=== PATIENT | male | born 1930 | race Caucasian/White ===

== ENCOUNTER 2017-01-23 01:13 | Inpatient (IN) | payer MEDICARE, BC ==
--- NOTE | 2017-01-23 01:50 | EDM.PDOC ---
ED HPI GENERAL MEDICAL PROBLEM - General Chief Complaint: Fever Stated Complaint: MEDICAL VIA [facility] Time Seen by Provider: 01/23/17 01:27 Source of Information: Reports: Patient, Family (), Old Records, RN Notes Reviewed History Limitations: Reports: Other (Limited comprehension and communication due to Parkinson's) - History of Present Illness INITIAL COMMENTS - FREE TEXT/NARRATIVE: EMS arrival from home Chief complaint Chills, fever, cough and weakness History of present illness 86-year-old male with Parkinson's disease, cared for by his at home, generally weak, late had fairly sudden onset of chills about 10 PM followed by fever and cough productive of phlegm but rapidly became greenish and thick. Some choking spells. Usually quite weak and slow movement because of the Parkinson's disease, tonight he was much slower. He almost stumbled and fell but his moved a chair quickly enough to catch him as he slumped down; otherwise he would have fallen to the floor. Couldn't get him out of the chair after that so called EMS. History of previous admission for bronchitis last year with fever and cough. 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 - Related Data Allergies Allergy/AdvReac Type Severity Reaction Status Date / Time ephedrine Allergy Other Verified 01/23/17 01:17 lisinopril Allergy Other Verified 01/23/17 01:17 tramadol Allergy Other Verified 01/23/17 01:17 hydrocodone AdvReac Confusion Verified 01/23/17 01:17 oxycodone AdvReac Confusion Verified 01/23/17 01:17 Penicillins AdvReac Rash Verified 01/23/17 01:17 Home Meds: Home Meds Meloxicam [Mobic] 7.5 mg PO BID PRN 08/25/14 [History] Carbidopa/Levodopa [Carbidopa-Levo ER 50-200] 1 tab PO ONETIME 12/30/15 [History ] Carbidopa/Levodopa [Carbidopa-Levodopa 25-100 Tab] 1 tab PO TID 12/30/15 [ History] Hydrochlorothiazide 25 mg PO DAILY 12/30/15 [History] Thyroid,Pork [Nature-Throid] 65 mg PO DAILY 12/30/15 [History] Finasteride [Proscar] 5 mg PO DAILY 02/26/16 [History] Naltrexone 4.5 mg PO BEDTIME 02/26/16 [History] Tamsulosin [Flomax] 0.4 mg PO PCBREAKFAST #30 cap.er 02/29/16 [Rx] Vit B12/Lmefolate Ca/Vit B6/B2 [l-Methyl-Mc Tablet] 1 each PO DAILY 04/25/16 [ History] Vitamin D3/Vitamin K2 [D3 + K2 Dots 1,000 Unit] 1 tab PO DAILY 01/23/17 [History ] Past Medical History HEENT History: Reports: Cataract, Impaired Vision Cardiovascular History: Reports: Hypertension, Other (See Below) Other Cardiovascular History: PVC's Gastrointestinal History: Reports: Chronic Constipation Genitourinary History: Reports: Renal Calculus, Urinary Incontinence, Other ( See Below) Other Genitourinary History: Urinary frequency Musculoskeletal History: Reports: Fracture Neurological History: Reports: Parkinson's Endocrine/Metabolic History: Reports: Hypothyroidism - Infectious Disease History Infectious Disease History: Reports: Measles - Past Surgical History HEENT Surgical History: Reports: Cataract Surgery Musculoskeletal Surgical History: Reports: Knee Replacement Social & Family History - Family History Family Medical History: Noncontributory - Tobacco Use Smoking Status *Q: Never Smoker Month Tobacco Last Used: 50 years Second Hand Smoke Exposure: No - Caffeine Use Caffeine Use: Reports: Coffee - Recreational Drug Use Recreational Drug Use: No - Living Situation & Occupation Living situation: Reports: Occupation: Retired ED ROS GENERAL - Review of Systems Review Of Systems: Unable To Obtain (From patient due to age and Parkinson's) ED EXAM, GENERAL - Physical Exam Exam: See Below Exam Limited By: Physical Impairment General Appearance: Alert, Mild Distress, Other (Febrile, slow movement, lethargicNormal pulse saturation 94% on room air, mild elevation systolic blood pressure) Eye Exam: Bilateral Eye: Normal Inspection Ears: Normal External Exam, Normal Canal, Normal TMs Ear Exam: Bilateral Ear: Auricle Normal Nose: Normal Inspection, Normal Mucosa Throat/Mouth: Normal Inspection, Normal Gums, Normal Oropharynx Head: Atraumatic, Normocephalic Neck: Supple. No: Carotid Bruit, Lymphadenopathy (R), Lymphadenopathy (L) Respiratory/Chest: No Accessory Muscle Use, Chest Non-Tender, Decreased Breath Sounds, Rales. No: Wheezing Cardiovascular: Normal Peripheral Pulses, Regular Rate, Rhythm, Systolic Murmur (Loudest at the apex) GI/Abdominal: Normal Bowel Sounds, Soft, No Mass Back Exam: Normal Inspection Neurological: Alert, Slow to Respond, Memory Loss Recent Events, Other (Stiff and having a hard time moving due to his weakness and fever) Psychiatric: Flat Affect Skin Exam: Warm, Dry, Intact, Normal Color, No Rash Course - Vital Signs Last Recorded V/S: Last Vital Signs Temp 38.4 C H 01/23/17 01:14 Pulse 81 01/23/17 01:14 Resp 22 H 01/23/17 01:14 BP 154/82 H 01/23/17 01:14 Pulse Ox 94 L 01/23/17 01:14 - Orders/Labs/Meds Orders: Active Orders 24 hr Category Date Time Status Patient Status Manage Transfer [TRANSFER] Routine ADT 01/23/17 03:18 Active EKG Documentation Completion [RC] ASDIRECTED Care 01/23/17 01:37 Active Peripheral IV Care [RC] . DIRECTED Care 01/23/17 01:37 Active Chest 1V Frontal [CR] Stat Exams 01/23/17 01:37 Taken CULTURE BLOOD [BC] Urgent Lab 01/23/17 01:53 Received CULTURE BLOOD [BC] Urgent Lab 01/23/17 02:25 Received CULTURE RESPIRATORY + SMEAR [RM] Stat Lab 01/23/17 01:54 Results MAGNESIUM [CHEM] Urgent Lab 01/23/17 04:01 Ordered UA W/MICROSCOPIC [URIN] Stat Lab 01/23/17 01:36 Uncollected Potassium Chloride [KCL 20 MEQ in Water 100 ML] 20 meq Med 01/23/17 04:00 Ordered Premix Bag 1 bag IV ONETIME Sodium Chloride 0.9% [Normal Saline] 1,000 ml Med 01/23/17 01:45 Active IV ASDIRECTED Sodium Chloride 0.9% [Saline Flush] Med 01/23/17 01:36 Active 10 ml FLUSH ASDIRECTED PRN Blood Culture x2 Reflex Set [OM.PC] Urgent Oth 01/23/17 01:37 Ordered Peripheral IV Insertion Adult [OM.PC] Routine Oth 01/23/17 01:36 Ordered Resuscitation Status Routine Resus Stat 01/23/17 03:20 Ordered EKG 12 Lead [EK] Routine Ther 01/23/17 01:36 Ordered Medication Orders Sodium Chloride (Normal Saline) 1,000 mls @ 125 mls/hr IV ASDIRECTED ANN Last Admin: 01/23/17 02:03 Dose: 125 mls/hr Potassium Chloride 20 meq/ (Premix) 100 mls @ 50 mls/hr IV ONETIME ONE Stop: 01/23/17 05:59 Sodium Chloride (Saline Flush) 10 ml FLUSH ASDIRECTED PRN PRN Reason: Keep Vein Open Last Admin: 01/23/17 02:59 Dose: 10 ml Labs: Laboratory Tests 01/23/17 01/23/17 01/23/17 Range/Units 01:53 01:53 01:53 WBC 15.5 H (4.5-11.0) K/uL RBC 4.45 (4.30-5.90) M/uL Hgb 13.7 (12.0-15.0) g/dL Hct 40.6 (40.0-54.0) % MCV 91 (80-98) fL MCH 31 (27-31) pg MCHC 34 (32-36) % Plt Count 178 (150-400) K/uL Sodium 140 (140-148) mmol/L Potassium 3.1 L (3.6-5.2) mmol/L Chloride 105 (100-108) mmol/L Carbon Dioxide 28 (21-32) mmol/L Anion Gap 10.1 (5.0-14.0) mmol/L BUN 34 H (7-18) mg/dL Creatinine 1.4 H (0.8-1.3) mg/dL Est Cr Clr Drug Dosing 34.18 mL/min Estimated GFR (MDRD) 48 L (>60) Glucose 122 H (74-106) mg/dL Lactic Acid 1.2 (0.4-2.0) mmol/L Calcium 8.5 (8.5-10.1) mg/dL Total Bilirubin 0.8 (0.2-1.0) mg/dL AST 20 (15-37) U/L ALT 6 L (12-78) U/L Alkaline Phosphatase 86 (46-116) U/L Total Protein 6.5 (6.4-8.2) g/dL Albumin 3.1 L (3.4-5.0) g/dL Globulin 3.4 (2.3-3.5) g/dL Albumin/Globulin Ratio 0.9 L (1.2-2.2) Amylase (25-115) U/L Lipase (73-393) U/L 01/23/17 Range/Units 02:44 WBC (4.5-11.0) K/uL RBC (4.30-5.90) M/uL Hgb (12.0-15.0) g/dL Hct (40.0-54.0) % MCV (80-98) fL MCH (27-31) pg MCHC (32-36) % Plt Count (150-400) K/uL Sodium (140-148) mmol/L Potassium (3.6-5.2) mmol/L Chloride (100-108) mmol/L Carbon Dioxide (21-32) mmol/L Anion Gap (5.0-14.0) mmol/L BUN (7-18) mg/dL Creatinine (0.8-1.3) mg/dL Est Cr Clr Drug Dosing mL/min Estimated GFR (MDRD) (>60) Glucose (74-106) mg/dL Lactic Acid (0.4-2.0) mmol/L Calcium (8.5-10.1) mg/dL Total Bilirubin (0.2-1.0) mg/dL AST (15-37) U/L ALT (12-78) U/L Alkaline Phosphatase (46-116) U/L Total Protein (6.4-8.2) g/dL Albumin (3.4-5.0) g/dL Globulin (2.3-3.5) g/dL Albumin/Globulin Ratio (1.2-2.2) Amylase 51 (25-115) U/L Lipase 154 (73-393) U/L Meds: Medications Generic Name Dose Route Start Last Admin Trade Name Freq PRN Reason Stop Dose Admin Sodium Chloride 1,000 mls @ 125 mls/hr 01/23/17 01:45 01/23/17 02:03 Normal Saline IV 125 mls/hr ASDIRECTED ANN Administration Potassium Chloride 20 meq/ 100 mls @ 50 mls/hr 01/23/17 04:00 Premix IV 01/23/17 05:59 ONETIME ONE Sodium Chloride 10 ml 01/23/17 01:36 01/23/17 02:59 Saline Flush FLUSH 10 ml ASDIRECTED PRN Administration Keep Vein Open Discontinued Medications Generic Name Dose Route Start Last Admin Trade Name Lenny PRN Reason Stop Dose Admin Azithromycin 500 mg/ Sodium 250 mls @ 250 mls/hr 01/23/17 02:23 01/23/17 02: 57 Chloride IV 01/23/17 03:22 250 mls/hr ONETIME ONE Administration Ceftriaxone Sodium 1 gm/ 50 mls @ 100 mls/hr 01/23/17 02:23 01/23/17 02:52 Sodium Chloride IV 01/23/17 02:52 100 mls/hr ONETIME ONE Administration - Re-Assessments/Exams Free Text/Narrative Re-Assessment/Exam: 01/23/17 02:06 86-year-old male with Parkinson's disease, lives at home with his , sudden onset of chills fever cough tonight. Saline IV, chest x-ray, labs as ordered including blood culture 01/23/17 02:22 WBC 15.5 Chest x-ray by my interpretation shows new left lower lobe infiltrate EKG shows sinus rhythm with some nonspecific T-wave changes Impression Pneumonia LLL Generalized weakness Admit IV ceftriaxone 1 g and azithromycin 500 mg 01/23/17 02:27 01/23/17 04:10 Departure - Departure Time of Disposition: 02:24 Disposition: Admitted As Inpatient 66 Condition: fair Clinical Impression: Generalized weakness, Parkinsons disease Pneumonia Qualifiers: Pneumonia type: due to unspecified organism Laterality: left Lung location: lower lobe of lung Qualified Code(s): J18.1 - Lobar pneumonia, unspecified organism - Discharge Information Referrals: PCP,None [Primary Care Provider] - Forms: ED Department Discharge - My Orders Last 24 Hours: My Active Orders 01/23/17 01:36 UA W/MICROSCOPIC [URIN] Stat Sodium Chloride 0.9% [Saline Flush] 10 ml FLUSH ASDIRECTED PRN Peripheral IV Insertion Adult [OM.PC] Routine EKG 12 Lead [EK] Routine 01/23/17 01:37 EKG Documentation Completion [RC] ASDIRECTED Peripheral IV Care [RC] . DIRECTED Chest 1V Frontal [CR] Stat Blood Culture x2 Reflex Set [OM.PC] Urgent 01/23/17 01:45 Sodium Chloride 0.9% [Normal Saline] 1,000 ml IV ASDIRECTED 01/23/17 01:53 CULTURE BLOOD [BC] Urgent 01/23/17 01:54 CULTURE RESPIRATORY + SMEAR [RM] Stat 01/23/17 02:25 CULTURE BLOOD [BC] Urgent - Assessment/Plan Last 24 Hours: My Active Orders 01/23/17 01:36 UA W/MICROSCOPIC [URIN] Stat Sodium Chloride 0.9% [Saline Flush] 10 ml FLUSH ASDIRECTED PRN Peripheral IV Insertion Adult [OM.PC] Routine EKG 12 Lead [EK] Routine 01/23/17 01:37 EKG Documentation Completion [RC] ASDIRECTED Peripheral IV Care [RC] . DIRECTED Chest 1V Frontal [CR] Stat Blood Culture x2 Reflex Set [OM.PC] Urgent 01/23/17 01:45 Sodium Chloride 0.9% [Normal Saline] 1,000 ml IV ASDIRECTED 01/23/17 01:53 CULTURE BLOOD [BC] Urgent 01/23/17 01:54 CULTURE RESPIRATORY + SMEAR [RM] Stat 01/23/17 02:25 CULTURE BLOOD [BC] Urgent
[2017-01-23] MEDS: Sodium Chloride 0.9% 1,000 ML IV SCH ×2 (02:03→19:53)
[2017-01-23] MEDS ORDERED: cefTRIAXone 1 GM in Sodium Chloride 0.9% 50 ML IV ONE (02:23)
[2017-01-23] MEDS ORDERED: Azithromycin 500 MG in Sodium Chloride 0.9% 250 ML IV ONE (02:23)
--- NOTE | 2017-01-23 02:48 | PCM.HP ---
H&P History of Present Illness - General Date of Service: 01/23/17 Source of Information: Patient, Family () - History of Present Illness Initial Comments - Free Text/Narative: EMS arrival from home Chief complaint Chills, fever, cough and weakness History of present illness History 86-year-old male with Parkinson's disease, cared for by his at home , generally weak, late had fairly sudden onset of chills about 10 PM followed by fever and cough productive of phlegm but rapidly became greenish and thick. Some choking spells. He became weak that he had troubles walking and moving compared to usual fourchette and the moved a chair and times that he sat down. In the chair. Couldn't get mother the chair after that so called EMS. History of previous admission for bronchitis last year with fever and cough. 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 Saline IV, chest x-ray, labs as ordered including blood culture 01/23/17 02:22 WBC 15.5 Chest x-ray by my interpretation shows new left lower lobe infiltrate EKG shows sinus rhythm with some nonspecific T-wave changes Impression Pneumonia Generalized weakness Admit IV ceftriaxone 1 g and azithromycin 500 mg 01/23/17 02:27 Onset of Symptoms: Reports: Sudden (of shortness of breath,fever and chills), Gradual Duration of Symptoms: Reports: Day(s): Location: Reports: Generalized Quality: Reports: Same as Previous Episode Severity: Moderate Improves with: Reports: None Worsens with: Reports: Movement Associated Symptoms: Reports: Cough, Fever/Chills, Loss of Appetite, Nausea/ Vomiting, Shortness of Breath, Weakness - Related Data Allergies/Adverse Reactions: Allergies Allergy/AdvReac Type Severity Reaction Status Date / Time ephedrine Allergy Other Verified 01/23/17 01:17 lisinopril Allergy Other Verified 01/23/17 01:17 tramadol Allergy Other Verified 01/23/17 01:17 hydrocodone AdvReac Confusion Verified 01/23/17 01:17 oxycodone AdvReac Confusion Verified 01/23/17 01:17 Penicillins AdvReac Rash Verified 01/23/17 01:17 Home Medications: Home Meds Meloxicam [Mobic] 7.5 mg PO BID PRN 08/25/14 [History] Carbidopa/Levodopa [Carbidopa-Levo ER 50-200] 1 tab PO ONETIME 12/30/15 [History ] Carbidopa/Levodopa [Carbidopa-Levodopa 25-100 Tab] 1 tab PO TID 12/30/15 [ History] Hydrochlorothiazide 25 mg PO DAILY 12/30/15 [History] Thyroid,Pork [Nature-Throid] 65 mg PO DAILY 12/30/15 [History] Finasteride [Proscar] 5 mg PO DAILY 02/26/16 [History] Naltrexone 4.5 mg PO BEDTIME 02/26/16 [History] Tamsulosin [Flomax] 0.4 mg PO PCBREAKFAST #30 cap.er 02/29/16 [Rx] Vit B12/Lmefolate Ca/Vit B6/B2 [l-Methyl-Mc Tablet] 1 each PO DAILY 04/25/16 [ History] Vitamin D3/Vitamin K2 [D3 + K2 Dots 1,000 Unit] 1 tab PO DAILY 01/23/17 [History ] Past Medical History HEENT History: Reports: Cataract, Impaired Vision Cardiovascular History: Reports: Hypertension, Other (See Below) Other Cardiovascular History: PVC's Gastrointestinal History: Reports: Chronic Constipation Genitourinary History: Reports: Renal Calculus, Urinary Incontinence, Other ( See Below) Other Genitourinary History: Urinary frequency Musculoskeletal History: Reports: Fracture Neurological History: Reports: Parkinson's (has 16 sibling, of which 7 or 8 have Parkinson's) Endocrine/Metabolic History: Reports: Hypothyroidism - Infectious Disease History Infectious Disease History: Reports: Measles - Past Surgical History HEENT Surgical History: Reports: Cataract Surgery Musculoskeletal Surgical History: Reports: Knee Replacement Social & Family History - Family History Family Medical History: Noncontributory - Tobacco Use Smoking Status *Q: Never Smoker Month Tobacco Last Used: 50 years Second Hand Smoke Exposure: No - Caffeine Use Caffeine Use: Reports: Coffee - Recreational Drug Use Recreational Drug Use: No - Living Situation & Occupation Living situation: Reports: ( to , has two adopted children, lives in [place], [place].) Occupation: Retired H&P Review of Systems - Review of Systems: Review Of Systems: See Below General: Reports: Fever, Chills, Malaise, Weakness, Fatigue HEENT: Reports: No Symptoms Pulmonary: Reports: Shortness of Breath, Pleuritic Chest Pain, Cough, Sputum Cardiovascular: Reports: No Symptoms Gastrointestinal: Reports: Nausea Genitourinary: Reports: Incontinence (hx of urinary retension) Musculoskeletal: Reports: Muscle Pain, Muscle Stiffness (secondary to Parkinson' s) Skin: Reports: No Symptoms Psychiatric: Reports: No Symptoms Neurological: Reports: Pre-Existing Deficit (Parkinson's), Tremors, Gait Disturbance Hematologic/Lymphatic: Reports: No Symptoms Immunologic: Reports: No Symptoms Exam - Exam Exam: See Below - Vital Signs Vital Signs: Last Vital Signs Temp 38.4 C H 01/23/17 01:14 Pulse 81 01/23/17 01:14 Resp 22 H 01/23/17 01:14 BP 154/82 H 01/23/17 01:14 Pulse Ox 94 L 01/23/17 01:14 Weight: 81.647 kg - Exam General: Alert, Oriented, Cooperative, Mild Distress (frequent cough is noted) HEENT: Conjunctiva Clear, EOMI, Hearing Intact, Mucosa Moist & [place], Nares Patent, Normal Nasal Septum, Posterior Pharynx Clear, Pupils Equal, Pupils Reactive, TMs Clear, Other (full dentures noted) Neck: Supple Lungs: Normal Respiratory Effort, Decreased Breath Sounds, Rales Cardiovascular: Regular Rate, Regular Rhythm, Normal S1, Normal S2, Other ( murmur present) Abdomen: Normal Bowel Sounds, Soft, Pelvis Stable (Male) Exam: Deferred Rectal (Males) Exam: Deferred Extremities: Normal Inspection, Normal Pulses Peripheral Pulses: 2+: Radial (L), Radial (R) Skin: Warm, Dry, Intact Neurological: Strength Equal Bilateral Neuro Extensive - Mental Status: Alert, Oriented x3, Normal Mood/Affect, Normal Cognition Psychiatric: Alert, Normal Affect, Normal Mood Physical Exam Comments:: 86 year old male with pre-existing Parkinson's, muscle stiffness and tremors with movement. assistance to ambulate. - Patient Data Lab Results last 24 hrs: Laboratory Results - last 24 hr 01/23/17 01/23/17 01/23/17 Range/Units 01:53 01:53 01:53 WBC 15.5 H (4.5-11.0) K/uL RBC 4.45 (4.30-5.90) M/uL Hgb 13.7 (12.0-15.0) g/dL Hct 40.6 (40.0-54.0) % MCV 91 (80-98) fL MCH 31 (27-31) pg MCHC 34 (32-36) % Plt Count 178 (150-400) K/uL Sodium 140 (140-148) mmol/L Potassium 3.1 L (3.6-5.2) mmol/L Chloride 105 (100-108) mmol/L Carbon Dioxide 28 (21-32) mmol/L Anion Gap 10.1 (5.0-14.0) mmol/L BUN 34 H (7-18) mg/dL Creatinine 1.4 H (0.8-1.3) mg/dL Est Cr Clr Drug Dosing 34.18 mL/min Estimated GFR (MDRD) 48 L (>60) Glucose 122 H (74-106) mg/dL Lactic Acid 1.2 (0.4-2.0) mmol/L Calcium 8.5 (8.5-10.1) mg/dL Total Bilirubin 0.8 (0.2-1.0) mg/dL AST 20 (15-37) U/L ALT 6 L (12-78) U/L Alkaline Phosphatase 86 (46-116) U/L Total Protein 6.5 (6.4-8.2) g/dL Albumin 3.1 L (3.4-5.0) g/dL Globulin 3.4 (2.3-3.5) g/dL Albumin/Globulin Ratio 0.9 L (1.2-2.2) Result Diagrams: 01/23/17 01:53 01/23/17 01:53 Shawn Results last 24 hrs: Microbiology 01/23/17 01:54 Gram Stain - Final Sputum - Expectorated EKG INTERPRETATION Rhythm: NSR *Q Meaningful Use (ADM) - VTE *Q VTE Criteria *Q: - Stroke *Q Stroke Criteria *Q: - AMI *Q AMI Criteria *Q: - Problem List (1) Generalized weakness SNOMED Code(s): 68978063 ICD Code: R53.1 - WEAKNESS Status: Acute Priority: High Current Visit: Yes (2) Parkinsons disease SNOMED Code(s): 61203581 ICD Code: G20 - PARKINSON'S DISEASE Status: Acute Priority: Medium Current Visit: Yes (3) Pneumonia SNOMED Code(s): 533590459 ICD Code: J18.9 - PNEUMONIA, UNSPECIFIED ORGANISM Status: Acute Priority : High Current Visit: Yes Qualifiers: Pneumonia type: due to unspecified organism Laterality: left Lung location: lower lobe of lung Qualified Code(s): J18.1 - Lobar pneumonia, unspecified organism (4) Hypokalemia SNOMED Code(s): 74028393 ICD Code: E87.6 - HYPOKALEMIA Status: Acute Priority: Medium Current Visit: Yes Problem List Initiated/Reviewed/Updated: Yes Orders Last 24hrs: Active Orders 24 hr Category Date Time Status EKG Documentation Completion [RC] ASDIRECTED Care 01/23/17 01:37 Active Peripheral IV Care [RC] . DIRECTED Care 01/23/17 01:37 Active Chest 1V Frontal [CR] Stat Exams 01/23/17 01:37 Taken AMYLASE [CHEM] Urgent Lab 01/23/17 02:44 Ordered CULTURE BLOOD [BC] Urgent Lab 01/23/17 01:53 Received CULTURE BLOOD [BC] Urgent Lab 01/23/17 02:25 Received CULTURE RESPIRATORY + SMEAR [RM] Stat Lab 01/23/17 01:54 Results LIPASE [CHEM] Urgent Lab 01/23/17 02:44 Ordered UA W/MICROSCOPIC [URIN] Stat Lab 01/23/17 01:36 Uncollected Azithromycin [Zithromax] 500 mg Med 01/23/17 02:23 Active Sodium Chloride 0.9% [Normal Saline] 250 ml IV ONETIME Sodium Chloride 0.9% [Normal Saline] 1,000 ml Med 01/23/17 01:45 Active IV ASDIRECTED Sodium Chloride 0.9% [Saline Flush] Med 01/23/17 01:36 Active 10 ml FLUSH ASDIRECTED PRN cefTRIAXone [Rocephin] 1 gm Med 01/23/17 02:23 Active Sodium Chloride 0.9% [Normal Saline] 50 ml IV ONETIME Blood Culture x2 Reflex Set [OM.PC] Urgent Oth 01/23/17 01:37 Ordered Peripheral IV Insertion Adult [OM.PC] Routine Oth 01/23/17 01:36 Ordered EKG 12 Lead [EK] Routine Ther 01/23/17 01:36 Ordered Medication Orders Sodium Chloride (Normal Saline) 1,000 mls @ 125 mls/hr IV ASDIRECTED ANN Last Admin: 01/23/17 02:03 Dose: 125 mls/hr Azithromycin 500 mg/ Sodium (Chloride) 250 mls @ 250 mls/hr IV ONETIME ONE Stop: 01/23/17 03:22 Ceftriaxone Sodium 1 gm/ (Sodium Chloride) 50 mls @ 100 mls/hr IV ONETIME ONE Stop: 01/23/17 02:52 Sodium Chloride (Saline Flush) 10 ml FLUSH ASDIRECTED PRN PRN Reason: Keep Vein Open Assessment/Plan Comment:: ASSESSMENT / PLAN History of present illness History 86-year-old male with Parkinson's disease, cared for by his at home , generally weak, late had fairly sudden onset of chills about 10 PM followed by fever and cough productive of phlegm but rapidly became greenish and thick. Some choking spells. He became weak that he had troubles walking and moving compared to usual fourchette and the moved a chair and times that he sat down. In the chair. Couldn't get mother the chair after that so called EMS. History of previous admission for bronchitis last year with fever and cough. 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 Saline IV, chest x-ray, labs as ordered including blood culture 01/23/17 02:22 WBC 15.5 Chest x-ray by my interpretation shows new left lower lobe infiltrate EKG shows sinus rhythm with some nonspecific T-wave changes Impression Pneumonia Generalized weakness Pneumonia with Weakness -Admit to [address] [place] [address] for further monitoring -IV Fluids for rehydration NS at 125 mL per hour -I and O -IV Antibiotic; Rocephin 1 gram IV, Zithromax 500mg IV every 24 hours -Advise to notify nurses of any chest pain or other symptoms -blood cultures x2 pending -sputum culture pending -Robitussin AC 10ml po every 4 hours prn painful cough Parkinson Disease -continue medications as prescribed Hypokalemia -Potassium 3.1; will order IV Potassium 20 meq -recheck Potassium in am, add Magnesium to todays lab. Maintenance issues -Orders home meds: -Nutrition: Regular diet, follow a Alkaline diet, request lemon water with meals -Barger catheter not indicated at this time -DVT: SCD -PPI; IV Protonix 40mg daily -referral to OT for discharge planning CODE STATUS: DNR/DNI Admission status: Admit to [address] [place] [address] Admission justification. This patient will be admitted for inpatient services and is medically appropriate meeting medical necessity for inpatient admission as outlined in my documentation. I reasonably expect the patient will require inpatient services that span. Time over 2 midnights. I reasonably expect this patient to be discharged or transferred within 96 hours after admission to the critical access hospital. Disposition; home Primary care provider: Dr. Oviedo
[2017-01-23] MEDS: Sodium Chloride 0.9% 10 ML Syringe FLUSH PRN (02:59)
[2017-01-23] MEDS ORDERED: Potassium Chloride 20 MEQ in Premix Bag 1 BAG IV ONE (04:00)
--- NOTE | 2017-01-23 04:40 | PCM.SN ---
- Free Text/Narrative Note: o; naltrexone medication a; medication interaction p; advise no narcotic. keenan Valdezitusmarisel AC , changed to Robitussin DM 10ml every 4 hr prn cough
[2017-01-23] MEDS ORDERED: Ondansetron 4 MG Tab.DIS PO PRN (04:49)
[2017-01-23] MEDS ORDERED: Acetaminophen 325 MG Tab PO PRN (04:49)
[2017-01-23] MEDS ORDERED: Carbidopa/Levodopa 50-200 MG Tab.ER PO SCH (04:49)
[2017-01-23] MEDS ORDERED: Bisacodyl 5 MG Tab PO PRN (04:49)
[2017-01-23] MEDS ORDERED: Docusate Sodium 100 MG Cap PO PRN (04:49)
[2017-01-23] MEDS ORDERED: LORazepam 2 MG/ML MDV IV PRN (04:49)
--- NOTE | 2017-01-23 08:20 | CR ---
Chest 1V Frontal INDICATION: cough fever FINDINGS: Comparison 04/25/2016. Interval development of a small patchy infiltrate in the left lung b ase, concerning for pneumonia. Right lung clear. Normal variant azygos fissure. Hypertrophic changes thoracic spine. Chest otherwise negative. Follow-up chest x-ray in 4-6 weeks recommended.
[2017-01-23] MEDS: Pantoprazole 40 MG Vial IV SCH (08:54)
[2017-01-23] MEDS: Finasteride 5 MG Tab PO SCH (08:55)
[2017-01-23] MEDS: Tamsulosin 0.4 MG Cap.ER PO SCH (08:56)
[2017-01-23] MEDS: Carbidopa/Levodopa 25-100 MG Tab PO SCH ×3 (08:56→20:05)
[2017-01-23] MEDS: Hydrochlorothiazide 25 MG Tab PO SCH (08:57)
[2017-01-23] MEDS: THROID PO SCH (08:57)
[2017-01-23] MEDS ORDERED: Non-Formulary Medication 1 Each (Thyroid,Pork [Nature-Throid] 65 MG) PO SCH (09:00)
[2017-01-23] MEDS ORDERED: VITAMIN D3 PO SCH (09:00)
[2017-01-23] MEDS ORDERED: VIT B12 PO SCH (09:00)
[2017-01-23] MEDS ORDERED: VITAMIN K2 PO SCH (09:00)
[2017-01-23] MEDS ORDERED: [UNRECOGNIZED DRUG - OTHER] PO SCH (09:00)
[2017-01-23] MEDS ORDERED: VIT B6 PO SCH (09:00)
[2017-01-23] MEDS ORDERED: LMEFOLATE CA PO SCH (09:00)
[2017-01-23] MEDS ORDERED: B2 PO SCH (09:00)
[2017-01-23] MEDS ORDERED: Potassium Chloride 20 MEQ Tab.ER PO ONE (09:30)
[2017-01-23] MEDS: cefTRIAXone 1 GM in Sodium Chloride 0.9% 50 ML IV SCH (14:45)
--- NOTE | 2017-01-23 14:50 | PCM.PN ---
- General Info Date of Service: 01/23/17 Functional Status: Reports: pain controlled, tolerating diet - Review of Systems General: Reports: Fever, Weakness, Chills Pulmonary: Reports: shortness of breath, cough. Denies: pleuritic chest pain, sputum, hemoptysis, wheezing Cardiovascular: Reports: Dyspnea on Exertion. Denies: Chest Pain, Palpitations , Orthopnea, PND, Edema Gastrointestinal: Reports: No symptoms Systems Review Comment:: This patient is an 86-year-old gentleman was admitted through the emergency department early this morning with weakness and fever secondary to left lung pneumonia. He became ill very abruptly yesterday, was doing better during the early portion of the day but last night became extremely weak and developed significant temperature elevation. On assessment in the emergency department was noted to have an infiltrate in the left lung as well as elevation in white blood cell count. He was admitted to the hospital and started on appropriate IV antibiotic therapy, also receiving IV fluids for hydration. - Patient Data Vitals - most recent: Last Vital Signs Temp 99.6 F 01/23/17 11:14 Pulse 70 01/23/17 11:14 Resp 20 01/23/17 11:14 BP 140/71 01/23/17 11:14 Pulse Ox 93 L 01/23/17 11:14 Weight - most recent: 184 lb 6.385 oz I&O - last 24 hours: Intake & Output 01/22/17 01/23/17 01/23/17 22:59 06:59 14:59 Intake Total 414 420 Output Total 200 Balance 414 220 Lab Results last 24 hrs: Laboratory Results - last 24 hr 01/23/17 01/23/17 Range/Units 04:01 04:34 Magnesium 2.0 (1.8-2.4) mg/dL Urine Color Yellow Urine Appearance Clear Urine pH 5.0 (4.5-8.0) Ur Specific [place] 1.015 (1.008-1.030) Urine Protein Negative (NEGATIVE) mg/dL Urine Glucose (UA) Normal (NEGATIVE) mg/dL Urine Ketones Negative (NEGATIVE) mg/dL Urine Occult Blood Negative (NEGATIVE) Urine Nitrite Negative (NEGAITVE) Urine Bilirubin Negative (NEGATIVE) Urine Urobilinogen 1 (NORMAL) mg/dL Ur Leukocyte Esterase Negative (NEGATIVE) Urine RBC Not seen (0-5) Urine WBC 5-10 H (0-5) Ur Epithelial Cells Not seen Amorphous Sediment Not seen Urine Bacteria Not seen Urine Mucus Few Med Orders - Current: Current Medications Acetaminophen (Tylenol) 650 mg PO Q4H PRN PRN Reason: Pain (Mild 1-3)/fever Bisacodyl (Dulcolax) 5 mg PO DAILY PRN PRN Reason: Constipation Carbidopa/Levodopa (Sinemet 25-100 Mg) 1 tab PO TID [facility] Last Admin: 01/23/17 14:07 Dose: 1 tab Carbidopa/Levodopa (Sinemet Cr 50-200 Mg) 1 tab PO DAILY [facility] Docusate Sodium (Colace) 100 mg PO BID PRN PRN Reason: Constipation Finasteride (Proscar) 5 mg PO DAILY [facility] Last Admin: 01/23/17 08:55 Dose: 5 mg Guaifenesin/Dextromethorphan (Robitussin Dm) 10 ml PO Q4H PRN PRN Reason: Cough Hydrochlorothiazide (Hydrochlorothiazide) 25 mg PO DAILY [facility] Last Admin: 01/23/17 08:57 Dose: 25 mg Sodium Chloride (Normal Saline) 1,000 mls @ 125 mls/hr IV ASDIRECTED [facility] Last Admin: 01/23/17 02:03 Dose: 125 mls/hr Azithromycin 500 mg/ Sodium (Chloride) 250 mls @ 250 mls/hr IV Q24H [facility] Ceftriaxone Sodium 1 gm/ (Sodium Chloride) 50 mls @ 100 mls/hr IV Q24H [facility] Lorazepam (Ativan) 1 mg IV Q6H PRN PRN Reason: Nausea/Vomiting Non-Formulary Medication (Vit B12/Lmefolate Ca/Vit B6/B2 [L-Methyl-Mc Tablet]) 1 each PO DAILY [facility] Last Admin: 01/23/17 08:58 Dose: Not Given Non-Formulary Medication (Vitamin D3/Vitamin K2 [D3 + K2 Dots 1,000 Unit]) 1 tab PO DAILY [facility] Last Admin: 01/23/17 08:58 Dose: Not Given Ondansetron HCl (Zofran Odt) 4 mg PO Q6H PRN PRN Reason: Nausea able to take PO Pantoprazole Sodium (Protonix Iv) 40 mg IV DAILY [facility] Last Admin: 01/23/17 08:54 Dose: 40 mg Throid 65mg Tab ( (Ptom)) 0 each PO DAILY [facility] Last Admin: 01/23/17 08:57 Dose: 1 each Naltrexone 4.5mg Cap ((Ptom)) 0 each PO BEDTIME [facility] Senna/Docusate Sodium (Senna Plus) 1 tab PO BID PRN PRN Reason: Constipation Sodium Chloride (Saline Flush) 10 ml FLUSH ASDIRECTED PRN PRN Reason: Keep Vein Open Last Admin: 01/23/17 02:59 Dose: 10 ml Tamsulosin HCl (Flomax) 0.4 mg PO PCBREAKFAST [facility] Last Admin: 01/23/17 08:56 Dose: 0.4 mg Discontinued Medications Carbidopa/Levodopa (Sinemet Cr 50-200 Mg) 1 tab PO ONETIME [facility] Azithromycin 500 mg/ Sodium (Chloride) 250 mls @ 250 mls/hr IV ONETIME ONE Stop: 01/23/17 03:22 Last Admin: 01/23/17 02:57 Dose: 250 mls/hr Ceftriaxone Sodium 1 gm/ (Sodium Chloride) 50 mls @ 100 mls/hr IV ONETIME ONE Stop: 01/23/17 02:52 Last Admin: 01/23/17 02:52 Dose: 100 mls/hr Potassium Chloride 20 meq/ (Premix) 100 mls @ 50 mls/hr IV ONETIME ONE Stop: 01/23/17 05:59 Last Admin: 01/23/17 06:03 Dose: 50 mls/hr Lidocaine HCl (Xylocaine-Mpf 1%) 2 ml INJECT ONETIME ONE Stop: 01/23/17 05:51 Last Admin: 01/23/17 06:03 Dose: 2 ml Non-Formulary Medication (Naltrexone [Naltrexone]) 4.5 mg PO BEDTIME [facility] Non-Formulary Medication (Thyroid,Pork [Nature-Throid]) 65 mg PO DAILY [facility] Potassium Chloride (Klor-Con M20) 40 meq PO ONETIME ONE Stop: 01/23/17 09:31 Last Admin: 01/23/17 10:29 Dose: 40 meq - Exam Quality Assessment: DVT prophylaxis General: alert, cooperative, no acute distress Lungs: Normal respiratory effort, Rales. No: Decreased breath sounds, Crackles , Rhonchi, Rub Cardiovascular: Regular Rate, Regular Rhythm, No Murmurs Abdomen: bowel sounds present, soft, no tenderness, no distension Extremities: no edema Skin: warm, dry, intact - Problem List Review Problem List Initiated/Reviewed/Updated: Yes - My Orders Last 24 Hours: My Active Orders 01/23/17 14:43 Consult to Physical Therapy [PT Evaluation and Treatment] [CONS] Routine 01/24/17 05:00 BASIC METABOLIC PANEL,BMP [CHEM] Timed CBC WITH AUTO DIFF [HEME] Timed 01/24/17 09:00 Carbidopa/Levodopa [Sinemet Cr 50-200 mg] 1 tab PO DAILY - Plan Plan:: ASSESSMENT / PLAN LEFT LUNG PNEUMONIA-no evidence of sepsis, stable since admission. -Admit to [address] [place] [address] for further monitoring -IV Fluids for rehydration NS at 125 mL per hour -I and O -IV Antibiotic; Rocephin 1 gram IV, Zithromax 500mg IV every 24 hours -blood cultures x2 pending -sputum culture pending -Robitussin AC 10ml po every 4 hours prn painful cough PARKINSON DISEASE -continue medications as prescribed HYPOKALEMIA-he has received both IV and oral potassium replacement -recheck Potassium in am MAINTENANCE ISSUES -Orders home meds: -Nutrition: Regular diet, follow a Alkaline diet, request lemon water with meals -Barger catheter not indicated at this time -DVT: Lovenox 40 mg subcutaneous daily -PPI; not indicated CODE STATUS: DNR/DNI ADMISSION STATUS: Admit to [address] [place] [address] ADMISSION JUSTIFICATION This patient will be admitted for inpatient services and is medically appropriate meeting medical necessity for inpatient admission as outlined in my documentation. I reasonably expect the patient will require inpatient services that span. Time over 2 midnights. I reasonably expect this patient to be discharged or transferred within 96 hours after admission to the critical access hospital. DISPOSITION-possible discharge to home versus senior care depending on overall strength at the time of discharge PRIMARY CARE PROVIDER- Dr. Oviedo
[2017-01-23] MEDS ORDERED: cefTRIAXone 1 GM in Sodium Chloride 0.9% 50 ML IV SCH (15:10)
[2017-01-23] MEDS ORDERED: K2 PO SCH (16:00)
[2017-01-23] MEDS: Enoxaparin 40 MG/0.4 ML Syringe SUBCUT SCH (16:00)
[2017-01-23] MEDS: CYANOCOBALAMIN PO SCH (16:00)
[2017-01-23] MEDS ORDERED: VIT D3 PO SCH (16:00)
[2017-01-23] MEDS ORDERED: Azithromycin 500 MG in Sodium Chloride 0.9% 250 ML IV SCH (16:10)
[2017-01-23] MEDS: NALTREXONE 4.5 MG PO SCH (20:04)
[2017-01-23] MEDS ORDERED: NALTREXONE 4.5 MG PO SCH (21:00)
[2017-01-23] MEDS: Azithromycin 500 MG in Sodium Chloride 0.9% 250 ML IV SCH (22:00)
[2017-01-24] MEDS: guaiFENesin/Dextromethorphan 100-10 MG/5 ML Soln 10 ML Cup PO PRN (04:53)
[2017-01-24] MEDS: Sodium Chloride 0.9% 1,000 ML IV SCH (05:05)
[2017-01-24] MEDS: Pantoprazole 40 MG Vial IV SCH (08:25)
[2017-01-24] MEDS: THROID PO SCH (08:26)
[2017-01-24] MEDS: Tamsulosin 0.4 MG Cap.ER PO SCH (08:26)
[2017-01-24] MEDS: Carbidopa/Levodopa 50-200 MG Tab.ER PO SCH (08:27)
[2017-01-24] MEDS: Finasteride 5 MG Tab PO SCH (08:29)
[2017-01-24] MEDS: Hydrochlorothiazide 25 MG Tab PO SCH (08:29)
[2017-01-24] MEDS: CYANOCOBALAMIN PO SCH (08:30)
[2017-01-24] MEDS: Carbidopa/Levodopa 25-100 MG Tab PO SCH ×3 (08:30→20:40)
[2017-01-24] MEDS ORDERED: VIT D3 PO SCH (12:00)
[2017-01-24] MEDS ORDERED: K2 PO SCH (12:00)
--- NOTE | 2017-01-24 13:02 | PCM.PN ---
- General Info Date of Service: 01/24/17 Functional Status: Reports: pain controlled, tolerating diet, ambulating, urinating - Review of Systems General: Reports: Weakness. Denies: Fever, Chills Pulmonary: Reports: cough, sputum. Denies: shortness of breath, pleuritic chest pain, hemoptysis, wheezing Cardiovascular: Denies: Chest Pain, Palpitations, Dyspnea on Exertion, Orthopnea , PND, Edema Gastrointestinal: Reports: No symptoms Systems Review Comment:: This patient has been stable over the past 24 hours, white count has shown further improvement and he has remained afebrile with good vital signs. He's been able to walk short distances with minimal assistance and his appetite is significantly improved. - Patient Data Vitals - most recent: Last Vital Signs Temp 98.9 F 01/24/17 11:16 Pulse 66 01/24/17 11:16 Resp 28 H 01/24/17 11:16 BP 166/80 H 01/24/17 11:31 Pulse Ox 95 01/24/17 11:16 Weight - most recent: 184 lb 6.385 oz I&O - last 24 hours: Intake & Output 01/23/17 01/24/17 01/24/17 22:59 06:59 14:59 Intake Total 2302 1295 Output Total 850 750 Balance 1452 545 Lab Results last 24 hrs: Laboratory Results - last 24 hr 01/24/17 01/24/17 Range/Units 05:34 05:34 WBC 13.3 H (4.5-11.0) K/uL RBC 4.04 L (4.30-5.90) M/uL Hgb 12.4 (12.0-15.0) g/dL Hct 37.4 L (40.0-54.0) % MCV 93 (80-98) fL MCH 31 (27-31) pg MCHC 33 (32-36) % Plt Count 161 (150-400) K/uL Neut % (Auto) 79 H (36-66) % Lymph % (Auto) 11 L (24-44) % [place] % (Auto) 9 H (2-6) % Eos % (Auto) 1 L (2-4) % Baso % (Auto) 0 (0-1) % Sodium 143 (140-148) mmol/L Potassium 3.6 (3.6-5.2) mmol/L Chloride 110 H (100-108) mmol/L Carbon Dioxide 26 (21-32) mmol/L Anion Gap 10.6 (5.0-14.0) mmol/L BUN 22 H (7-18) mg/dL Creatinine 1.2 (0.8-1.3) mg/dL Est Cr Clr Drug Dosing 40.08 mL/min Estimated GFR (MDRD) 57 L (>60) Glucose 112 H (74-106) mg/dL Calcium 8.0 L (8.5-10.1) mg/dL Med Orders - Current: Current Medications Acetaminophen (Tylenol) 650 mg PO Q4H PRN PRN Reason: Pain (Mild 1-3)/fever Bisacodyl (Dulcolax) 5 mg PO DAILY PRN PRN Reason: Constipation Carbidopa/Levodopa (Sinemet 25-100 Mg) 1 tab PO TID [facility] Last Admin: 01/24/17 08:30 Dose: 1 tab Carbidopa/Levodopa (Sinemet Cr 50-200 Mg) 1 tab PO DAILY [facility] Last Admin: 01/24/17 08:27 Dose: 1 tab Docusate Sodium (Colace) 100 mg PO BID PRN PRN Reason: Constipation Enoxaparin Sodium (Lovenox) 40 mg SUBCUT Q24H [facility] Last Admin: 01/23/17 16:00 Dose: 40 mg Finasteride (Proscar) 5 mg PO DAILY [facility] Last Admin: 01/24/17 08:29 Dose: 5 mg Guaifenesin/Dextromethorphan (Robitussin Dm) 10 ml PO Q4H PRN PRN Reason: Cough Last Admin: 01/24/17 04:53 Dose: 10 ml Hydrochlorothiazide (Hydrochlorothiazide) 25 mg PO DAILY [facility] Last Admin: 01/24/17 08:29 Dose: 25 mg Azithromycin 500 mg/ Sodium (Chloride) 250 mls @ 250 mls/hr IV Q24H [facility] Last Admin: 01/23/17 22:00 Dose: 250 mls/hr Ceftriaxone Sodium 1 gm/ (Sodium Chloride) 50 mls @ 100 mls/hr IV Q24H [facility] Last Admin: 01/23/17 14:45 Dose: 100 mls/hr Lorazepam (Ativan) 1 mg IV Q6H PRN PRN Reason: Nausea/Vomiting Ondansetron HCl (Zofran Odt) 4 mg PO Q6H PRN PRN Reason: Nausea able to take PO Pantoprazole Sodium (Protonix Iv) 40 mg IV DAILY [facility] Last Admin: 01/24/17 08:25 Dose: 40 mg Throid 65mg Tab ( (Ptom)) 0 each PO DAILY [facility] Last Admin: 01/24/17 08:26 Dose: 1 each Naltrexone 4.5mg Cap ((Ptom)) 0 each PO BEDTIME [facility] Last Admin: 01/23/17 20:04 Dose: 1 each Vit B12 1,100mcg ( (Ptom)) 0 each PO DAILY [facility] Last Admin: 01/24/17 08:30 Dose: 1 each Vit D3/K2 10, 000unit/90 Mcg (Ptom ) 0 each PO We@1200 [facility] Last Admin: 01/24/17 11:46 Dose: 1 each Senna/Docusate Sodium (Senna Plus) 1 tab PO BID PRN PRN Reason: Constipation Sodium Chloride (Saline Flush) 10 ml FLUSH ASDIRECTED PRN PRN Reason: Keep Vein Open Last Admin: 01/23/17 02:59 Dose: 10 ml Tamsulosin HCl (Flomax) 0.4 mg PO PCBREAKFAST [facility] Last Admin: 01/24/17 08:26 Dose: 0.4 mg Discontinued Medications Carbidopa/Levodopa (Sinemet Cr 50-200 Mg) 1 tab PO ONETIME [facility] Sodium Chloride (Normal Saline) 1,000 mls @ 125 mls/hr IV ASDIRECTED [facility] Last Admin: 01/24/17 05:05 Dose: 125 mls/hr Azithromycin 500 mg/ Sodium (Chloride) 250 mls @ 250 mls/hr IV ONETIME ONE Stop: 01/23/17 03:22 Last Admin: 01/23/17 02:57 Dose: 250 mls/hr Ceftriaxone Sodium 1 gm/ (Sodium Chloride) 50 mls @ 100 mls/hr IV ONETIME ONE Stop: 01/23/17 02:52 Last Admin: 01/23/17 02:52 Dose: 100 mls/hr Potassium Chloride 20 meq/ (Premix) 100 mls @ 50 mls/hr IV ONETIME ONE Stop: 01/23/17 05:59 Last Admin: 01/23/17 06:03 Dose: 50 mls/hr Lidocaine HCl (Xylocaine-Mpf 1%) 2 ml INJECT ONETIME ONE Stop: 01/23/17 05:51 Last Admin: 01/23/17 06:03 Dose: 2 ml Non-Formulary Medication (Naltrexone [Naltrexone]) 4.5 mg PO BEDTIME [facility] Non-Formulary Medication (Thyroid,Pork [Nature-Throid]) 65 mg PO DAILY [facility] Non-Formulary Medication (Vit B12/Lmefolate Ca/Vit B6/B2 [L-Methyl-Mc Tablet]) 1 each PO DAILY [facility] Last Admin: 01/23/17 08:58 Dose: Not Given Non-Formulary Medication (Vitamin D3/Vitamin K2 [D3 + K2 Dots 1,000 Unit]) 1 tab PO DAILY [facility] Last Admin: 01/23/17 08:58 Dose: Not Given Potassium Chloride (Klor-Con M20) 40 meq PO ONETIME ONE Stop: 01/23/17 09:31 Last Admin: 01/23/17 10:29 Dose: 40 meq - Exam Quality Assessment: DVT prophylaxis. No: supplemental oxygen General: alert, oriented, cooperative, no acute distress Lungs: Normal respiratory effort, Rales. No: Decreased breath sounds, Crackles , Rhonchi, Rub, Stridor, Wheezing Cardiovascular: Regular Rate, Regular Rhythm, No Murmurs Abdomen: bowel sounds present, soft, no tenderness, no distension Extremities: no edema Skin: warm, dry, intact - Problem List Review Problem List Initiated/Reviewed/Updated: Yes - My Orders Last 24 Hours: My Active Orders 01/23/17 14:43 Consult to Physical Therapy [PT Evaluation and Treatment] [CONS] Routine 01/23/17 16:00 Enoxaparin [Lovenox] 40 mg SUBCUT Q24H 01/24/17 09:00 Carbidopa/Levodopa [Sinemet Cr 50-200 mg] 1 tab PO DAILY 01/24/17 12:59 Convert IV to Saline Lock [OM.PC] Routine 01/25/17 05:00 BASIC METABOLIC PANEL,BMP [CHEM] Timed CBC WITH AUTO DIFF [HEME] Timed - Plan Plan:: ASSESSMENT / PLAN LEFT LUNG PNEUMONIA-no evidence of sepsis, stable since admission. Less short of breath and cough over the past 24 hours -Admit to [address] [place] [address] for further monitoring -Saline lock IV -I and O -IV Antibiotic; Rocephin 1 gram IV, Zithromax 500mg IV every 24 hours -blood cultures x2 pending -sputum culture pending -Robitussin AC 10ml po every 4 hours prn painful cough PARKINSON DISEASE -continue medications as prescribed HYPOKALEMIA-he has received both IV and oral potassium replacement -recheck Potassium in am MAINTENANCE ISSUES -Orders home meds: -Nutrition: Regular diet, follow a Alkaline diet, request lemon water with meals -Barger catheter not indicated at this time -DVT: Lovenox 40 mg subcutaneous daily -PPI; not indicated CODE STATUS: DNR/DNI ADMISSION STATUS: Admit to [address] [place] [address] ADMISSION JUSTIFICATION This patient will be admitted for inpatient services and is medically appropriate meeting medical necessity for inpatient admission as outlined in my documentation. I reasonably expect the patient will require inpatient services that span. Time over 2 midnights. I reasonably expect this patient to be discharged or transferred within 96 hours after admission to the [facility] hospital. DISPOSITION-possible discharge to home versus prison depending on overall strength at the time of discharge PRIMARY CARE PROVIDER- Dr. Oviedo
[2017-01-24] MEDS: cefTRIAXone 1 GM in Sodium Chloride 0.9% 50 ML IV SCH (15:25)
[2017-01-24] MEDS: Enoxaparin 40 MG/0.4 ML Syringe SUBCUT SCH (15:26)
[2017-01-24] MEDS: NALTREXONE 4.5 MG PO SCH (20:39)
[2017-01-24] MEDS: Azithromycin 500 MG in Sodium Chloride 0.9% 250 ML IV SCH (22:13)
[2017-01-25] MEDS: guaiFENesin/Dextromethorphan 100-10 MG/5 ML Soln 10 ML Cup PO PRN ×2 (00:48→21:12)
[2017-01-25] MEDS: CYANOCOBALAMIN PO SCH (08:25)
[2017-01-25] MEDS: THROID PO SCH (08:26)
[2017-01-25] MEDS: Carbidopa/Levodopa 50-200 MG Tab.ER PO SCH (08:27)
[2017-01-25] MEDS: Carbidopa/Levodopa 25-100 MG Tab PO SCH ×3 (08:27→21:02)
[2017-01-25] MEDS: Hydrochlorothiazide 25 MG Tab PO SCH (08:27)
[2017-01-25] MEDS: Finasteride 5 MG Tab PO SCH (08:27)
[2017-01-25] MEDS: Tamsulosin 0.4 MG Cap.ER PO SCH (08:28)
[2017-01-25] MEDS: Pantoprazole 40 MG Vial IV SCH (09:37)
--- NOTE | 2017-01-25 12:43 | PCM.PN ---
- General Info Date of Service: 01/25/17 Functional Status: Reports: tolerating diet, ambulating, urinating - Review of Systems General: Reports: Weakness. Denies: Fever, Chills Pulmonary: Reports: cough, sputum. Denies: shortness of breath, hemoptysis, wheezing Cardiovascular: Reports: No Symptoms Gastrointestinal: Reports: No symptoms Genitourinary: Reports: no symptoms Systems Review Comment:: This patient has continued to slowly improve on a daily basis, he has remained afebrile and has been hemodynamically stable. Shortness of breath has essentially resolved and his cough is improving with less sputum production. He' s been seen daily by physical therapy and overall strength and ability to ambulate also seem to be improving. - Patient Data Vitals - most recent: Last Vital Signs Temp 98.6 F 01/25/17 10:59 Pulse 65 01/25/17 10:59 Resp 20 01/25/17 10:59 BP 170/95 H 01/25/17 10:59 Pulse Ox 97 01/25/17 10:59 Weight - most recent: 184 lb 6.385 oz I&O - last 24 hours: Intake & Output 01/24/17 01/25/17 01/25/17 22:59 06:59 14:59 Intake Total 680 90 480 Output Total 800 250 200 Balance -120 -160 280 Lab Results last 24 hrs: Laboratory Results - last 24 hr 01/25/17 01/25/17 Range/Units 05:00 05:00 WBC 14.4 H (4.5-11.0) K/uL RBC 4.09 L (4.30-5.90) M/uL Hgb 12.5 (12.0-15.0) g/dL Hct 37.7 L (40.0-54.0) % MCV 92 (80-98) fL MCH 31 (27-31) pg MCHC 33 (32-36) % Plt Count 191 (150-400) K/uL Neut % (Auto) 78 H (36-66) % Lymph % (Auto) 10 L (24-44) % [place] % (Auto) 10 H (2-6) % Eos % (Auto) 1 L (2-4) % Baso % (Auto) 0 (0-1) % Sodium 146 (140-148) mmol/L Potassium 3.8 (3.6-5.2) mmol/L Chloride 110 H (100-108) mmol/L Carbon Dioxide 29 (21-32) mmol/L Anion Gap 10.8 (5.0-14.0) mmol/L BUN 20 H (7-18) mg/dL Creatinine 1.3 (0.8-1.3) mg/dL Est Cr Clr Drug Dosing 36.99 mL/min Estimated GFR (MDRD) 52 L (>60) Glucose 101 (74-106) mg/dL Calcium 8.5 (8.5-10.1) mg/dL Med Orders - Current: Current Medications Acetaminophen (Tylenol) 650 mg PO Q4H PRN PRN Reason: Pain (Mild 1-3)/fever Last Admin: 01/25/17 00:49 Dose: 650 mg Bisacodyl (Dulcolax) 5 mg PO DAILY PRN PRN Reason: Constipation Carbidopa/Levodopa (Sinemet 25-100 Mg) 1 tab PO TID [facility] Last Admin: 01/25/17 08:27 Dose: 1 tab Carbidopa/Levodopa (Sinemet Cr 50-200 Mg) 1 tab PO DAILY [facility] Last Admin: 01/25/17 08:27 Dose: 1 tab Docusate Sodium (Colace) 100 mg PO BID PRN PRN Reason: Constipation Enoxaparin Sodium (Lovenox) 40 mg SUBCUT Q24H [facility] Last Admin: 01/24/17 15:26 Dose: 40 mg Finasteride (Proscar) 5 mg PO DAILY [facility] Last Admin: 01/25/17 08:27 Dose: 5 mg Guaifenesin/Dextromethorphan (Robitussin Dm) 10 ml PO Q4H PRN PRN Reason: Cough Last Admin: 01/25/17 00:48 Dose: 10 ml Hydrochlorothiazide (Hydrochlorothiazide) 25 mg PO DAILY [facility] Last Admin: 01/25/17 08:27 Dose: 25 mg Azithromycin 500 mg/ Sodium (Chloride) 250 mls @ 250 mls/hr IV Q24H [facility] Last Admin: 01/24/17 22:13 Dose: 250 mls/hr Ceftriaxone Sodium 1 gm/ (Sodium Chloride) 50 mls @ 100 mls/hr IV Q24H [facility] Last Admin: 01/24/17 15:25 Dose: 100 mls/hr Lorazepam (Ativan) 1 mg IV Q6H PRN PRN Reason: Nausea/Vomiting Ondansetron HCl (Zofran Odt) 4 mg PO Q6H PRN PRN Reason: Nausea able to take PO Pantoprazole Sodium (Protonix) 40 mg PO ACBREAKFAST [facility] Throid 65mg Tab ( (Ptom)) 0 each PO DAILY [facility] Last Admin: 01/25/17 08:26 Dose: 1 each Naltrexone 4.5mg Cap ((Ptom)) 0 each PO BEDTIME [facility] Last Admin: 01/24/17 20:39 Dose: 1 each Vit B12 1,100mcg ( (Ptom)) 0 each PO DAILY [facility] Last Admin: 01/25/17 08:25 Dose: 1 each Vit D3/K2 10, 000unit/90 Mcg (Ptom ) 0 each PO We@1200 [facility] Last Admin: 01/24/17 11:46 Dose: 1 each Senna/Docusate Sodium (Senna Plus) 1 tab PO BID PRN PRN Reason: Constipation Sodium Chloride (Saline Flush) 10 ml FLUSH ASDIRECTED PRN PRN Reason: Keep Vein Open Last Admin: 01/23/17 02:59 Dose: 10 ml Tamsulosin HCl (Flomax) 0.4 mg PO PCBREAKFAST [facility] Last Admin: 01/25/17 08:28 Dose: 0.4 mg Discontinued Medications Carbidopa/Levodopa (Sinemet Cr 50-200 Mg) 1 tab PO ONETIME [facility] Sodium Chloride (Normal Saline) 1,000 mls @ 125 mls/hr IV ASDIRECTED [facility] Last Admin: 01/24/17 05:05 Dose: 125 mls/hr Azithromycin 500 mg/ Sodium (Chloride) 250 mls @ 250 mls/hr IV ONETIME ONE Stop: 01/23/17 03:22 Last Admin: 01/23/17 02:57 Dose: 250 mls/hr Ceftriaxone Sodium 1 gm/ (Sodium Chloride) 50 mls @ 100 mls/hr IV ONETIME ONE Stop: 01/23/17 02:52 Last Admin: 01/23/17 02:52 Dose: 100 mls/hr Potassium Chloride 20 meq/ (Premix) 100 mls @ 50 mls/hr IV ONETIME ONE Stop: 01/23/17 05:59 Last Admin: 01/23/17 06:03 Dose: 50 mls/hr Lidocaine HCl (Xylocaine-Mpf 1%) 2 ml INJECT ONETIME ONE Stop: 01/23/17 05:51 Last Admin: 01/23/17 06:03 Dose: 2 ml Non-Formulary Medication (Naltrexone [Naltrexone]) 4.5 mg PO BEDTIME [facility] Non-Formulary Medication (Thyroid,Pork [Nature-Throid]) 65 mg PO DAILY [facility] Non-Formulary Medication (Vit B12/Lmefolate Ca/Vit B6/B2 [L-Methyl-Mc Tablet]) 1 each PO DAILY [facility] Last Admin: 01/23/17 08:58 Dose: Not Given Non-Formulary Medication (Vitamin D3/Vitamin K2 [D3 + K2 Dots 1,000 Unit]) 1 tab PO DAILY [facility] Last Admin: 01/23/17 08:58 Dose: Not Given Pantoprazole Sodium (Protonix Iv) 40 mg IV DAILY [facility] Last Admin: 01/25/17 09:37 Dose: 40 mg Potassium Chloride (Klor-Con M20) 40 meq PO ONETIME ONE Stop: 01/23/17 09:31 Last Admin: 01/23/17 10:29 Dose: 40 meq - Exam General: alert, oriented, cooperative, no acute distress Lungs: Clear to auscultation, Normal respiratory effort Cardiovascular: Regular Rate, Regular Rhythm, No Murmurs Abdomen: bowel sounds present, soft, no tenderness, no distension Extremities: no edema Skin: warm, dry, intact - Problem List Review Problem List Initiated/Reviewed/Updated: Yes - My Orders Last 24 Hours: My Active Orders 01/24/17 12:59 Convert IV to Saline Lock [OM.PC] Routine 01/26/17 05:00 BASIC METABOLIC PANEL,BMP [CHEM] Timed CBC WITH AUTO DIFF [HEME] Timed - Plan Plan:: ASSESSMENT / PLAN LEFT LUNG PNEUMONIA-no evidence of sepsis, stable since admission. Less short of breath and cough over the past 24 hours. Cultures have remained negative -Saline lock IV -I and O -IV Antibiotic; Rocephin 1 gram IV, Zithromax 500mg IV every 24 hours -blood cultures x2 pending -sputum culture pending -Robitussin AC 10ml po every 4 hours prn painful cough PARKINSON DISEASE -continue medications as prescribed Hypokalemia-Potassium level now within normal range -recheck Potassium in am MAINTENANCE ISSUES -Orders home meds: -Nutrition: Regular diet, follow a Alkaline diet, request lemon water with meals -Barger catheter not indicated at this time -DVT: Lovenox 40 mg subcutaneous daily -PPI; not indicated CODE STATUS: DNR/DNI ADMISSION STATUS: Admit to [address] [place] [address] ADMISSION JUSTIFICATION This patient will be admitted for inpatient services and is medically appropriate meeting medical necessity for inpatient admission as outlined in my documentation. I reasonably expect the patient will require inpatient services that span. Time over 2 midnights. I reasonably expect this patient to be discharged or transferred within 96 hours after admission to the [facility]. DISPOSITION-possible discharge to home versus residential depending on overall strength at the time of discharge PRIMARY CARE PROVIDER- Dr. Oviedo
[2017-01-25] MEDS: Enoxaparin 40 MG/0.4 ML Syringe SUBCUT SCH (15:34)
[2017-01-25] MEDS: cefTRIAXone 1 GM in Sodium Chloride 0.9% 50 ML IV SCH (15:34)
[2017-01-25] MEDS: hydrALAZINE 10 MG Tab PO PRN (17:24)
[2017-01-25] MEDS: NALTREXONE 4.5 MG PO SCH (21:02)
[2017-01-25] MEDS: Azithromycin 500 MG in Sodium Chloride 0.9% 250 ML IV SCH (21:14)
[2017-01-26] MEDS: Pantoprazole 40 MG Tab.CR PO SCH (07:25)
[2017-01-26] MEDS: Hydrochlorothiazide 25 MG Tab PO SCH (08:28)
[2017-01-26] MEDS: Tamsulosin 0.4 MG Cap.ER PO SCH (08:28)
[2017-01-26] MEDS: THROID PO SCH (08:29)
[2017-01-26] MEDS: Finasteride 5 MG Tab PO SCH (08:29)
[2017-01-26] MEDS: CYANOCOBALAMIN PO SCH (08:30)
[2017-01-26] MEDS: Carbidopa/Levodopa 25-100 MG Tab PO SCH ×3 (08:30→20:16)
[2017-01-26] MEDS: Carbidopa/Levodopa 50-200 MG Tab.ER PO SCH (11:06)
[2017-01-26] MEDS: Sodium Chloride 0.9% 10 ML Syringe FLUSH PRN (16:08)
[2017-01-26] MEDS: Enoxaparin 40 MG/0.4 ML Syringe SUBCUT SCH (16:08)
[2017-01-26] MEDS: cefTRIAXone 1 GM in Sodium Chloride 0.9% 50 ML IV SCH (16:08)
--- NOTE | 2017-01-26 18:18 | PCM.PN ---
- General Info Date of Service: 01/26/17 Functional Status: Reports: tolerating diet, ambulating, urinating - Review of Systems General: Reports: Weakness. Denies: Fever, Chills Pulmonary: Reports: shortness of breath, cough. Denies: pleuritic chest pain, sputum, hemoptysis, wheezing Cardiovascular: Reports: Dyspnea on Exertion. Denies: Chest Pain, Palpitations , Orthopnea, PND, Edema, Lightheadedness Gastrointestinal: Reports: No symptoms Systems Review Comment:: This patient has done well since yesterday, there is been no recurrent fever chills or sweats, vital signs have been stable. His feels that he is too weak to be able to go home with her and so the current plan is for discharge to intermediate tomorrow. - Patient Data Vitals - most recent: Last Vital Signs Temp 98.9 F 01/26/17 15:22 Pulse 65 01/26/17 15:22 Resp 16 01/26/17 15:22 BP 170/90 H 01/26/17 15:22 Pulse Ox 96 01/26/17 16:00 Weight - most recent: 184 lb 6.385 oz I&O - last 24 hours: Intake & Output 01/26/17 01/26/17 01/26/17 06:59 14:59 22:59 Intake Total 480 680 50 Output Total 450 Balance 30 680 50 Lab Results last 24 hrs: Laboratory Results - last 24 hr 01/26/17 01/26/17 Range/Units 06:00 06:00 WBC 13.8 H (4.5-11.0) K/uL RBC 4.38 (4.30-5.90) M/uL Hgb 13.5 (12.0-15.0) g/dL Hct 40.1 (40.0-54.0) % MCV 92 (80-98) fL MCH 31 (27-31) pg MCHC 34 (32-36) % Plt Count 218 (150-400) K/uL Neut % (Auto) 74 H (36-66) % Lymph % (Auto) 13 L (24-44) % Cobb % (Auto) 11 H (2-6) % Eos % (Auto) 2 (2-4) % Baso % (Auto) 1 (0-1) % Sodium 146 (140-148) mmol/L Potassium 3.7 (3.6-5.2) mmol/L Chloride 108 (100-108) mmol/L Carbon Dioxide 30 (21-32) mmol/L Anion Gap 8.2 (5.0-14.0) mmol/L BUN 18 (7-18) mg/dL Creatinine 1.3 (0.8-1.3) mg/dL Est Cr Clr Drug Dosing 36.99 mL/min Estimated GFR (MDRD) 52 L (>60) Glucose 94 (74-106) mg/dL Calcium 8.6 (8.5-10.1) mg/dL Med Orders - Current: Current Medications Acetaminophen (Tylenol) 650 mg PO Q4H PRN PRN Reason: Pain (Mild 1-3)/fever Last Admin: 01/25/17 00:49 Dose: 650 mg Bisacodyl (Dulcolax) 5 mg PO DAILY PRN PRN Reason: Constipation Carbidopa/Levodopa (Sinemet 25-100 Mg) 1 tab PO TID [facility] Last Admin: 01/26/17 14:04 Dose: 1 tab Carbidopa/Levodopa (Sinemet Cr 50-200 Mg) 1 tab PO DAILY [facility] Last Admin: 01/26/17 11:06 Dose: 1 tab Docusate Sodium (Colace) 100 mg PO BID PRN PRN Reason: Constipation Enoxaparin Sodium (Lovenox) 40 mg SUBCUT Q24H [facility] Last Admin: 01/26/17 16:08 Dose: 40 mg Finasteride (Proscar) 5 mg PO DAILY [facility] Last Admin: 01/26/17 08:29 Dose: 5 mg Guaifenesin/Dextromethorphan (Robitussin Dm) 10 ml PO Q4H PRN PRN Reason: Cough Last Admin: 01/25/17 21:12 Dose: 10 ml Hydralazine HCl (Apresoline) 5 mg PO Q6H PRN PRN Reason: Hypertension Last Admin: 01/25/17 17:24 Dose: 5 mg Hydrochlorothiazide (Hydrochlorothiazide) 25 mg PO DAILY [facility] Last Admin: 01/26/17 08:28 Dose: 25 mg Azithromycin 500 mg/ Sodium (Chloride) 250 mls @ 250 mls/hr IV Q24H [facility] Last Admin: 01/25/17 21:14 Dose: 250 mls/hr Ceftriaxone Sodium 1 gm/ (Sodium Chloride) 50 mls @ 100 mls/hr IV Q24H [facility] Last Admin: 01/26/17 16:08 Dose: 100 mls/hr Lorazepam (Ativan) 1 mg IV Q6H PRN PRN Reason: Nausea/Vomiting Ondansetron HCl (Zofran Odt) 4 mg PO Q6H PRN PRN Reason: Nausea able to take PO Pantoprazole Sodium (Protonix) 40 mg PO ACBREAKFAST [facility] Last Admin: 01/26/17 07:25 Dose: 40 mg Throid 65mg Tab ( (Ptom)) 0 each PO DAILY [facility] Last Admin: 01/26/17 08:29 Dose: 1 each Naltrexone 4.5mg Cap ((Ptom)) 0 each PO BEDTIME [facility] Last Admin: 01/25/17 21:02 Dose: 1 each Vit B12 1,100mcg ( (Ptom)) 0 each PO DAILY [facility] Last Admin: 01/26/17 08:30 Dose: 1 each Vit D3/K2 10, 000unit/90 Mcg (Ptom ) 0 each PO We@1200 [facility] Last Admin: 01/24/17 11:46 Dose: 1 each Senna/Docusate Sodium (Senna Plus) 1 tab PO BID PRN PRN Reason: Constipation Sodium Chloride (Saline Flush) 10 ml FLUSH ASDIRECTED PRN PRN Reason: Keep Vein Open Last Admin: 01/26/17 16:08 Dose: 10 ml Tamsulosin HCl (Flomax) 0.4 mg PO PCBREAKFAST [facility] Last Admin: 01/26/17 08:28 Dose: 0.4 mg Discontinued Medications Carbidopa/Levodopa (Sinemet Cr 50-200 Mg) 1 tab PO ONETIME [facility] Sodium Chloride (Normal Saline) 1,000 mls @ 125 mls/hr IV ASDIRECTED [facility] Last Admin: 01/24/17 05:05 Dose: 125 mls/hr Azithromycin 500 mg/ Sodium (Chloride) 250 mls @ 250 mls/hr IV ONETIME ONE Stop: 01/23/17 03:22 Last Admin: 01/23/17 02:57 Dose: 250 mls/hr Ceftriaxone Sodium 1 gm/ (Sodium Chloride) 50 mls @ 100 mls/hr IV ONETIME ONE Stop: 01/23/17 02:52 Last Admin: 01/23/17 02:52 Dose: 100 mls/hr Potassium Chloride 20 meq/ (Premix) 100 mls @ 50 mls/hr IV ONETIME ONE Stop: 01/23/17 05:59 Last Admin: 01/23/17 06:03 Dose: 50 mls/hr Lidocaine HCl (Xylocaine-Mpf 1%) 2 ml INJECT ONETIME ONE Stop: 01/23/17 05:51 Last Admin: 01/23/17 06:03 Dose: 2 ml Non-Formulary Medication (Naltrexone [Naltrexone]) 4.5 mg PO BEDTIME [facility] Non-Formulary Medication (Thyroid,Pork [Nature-Throid]) 65 mg PO DAILY [facility] Non-Formulary Medication (Vit B12/Lmefolate Ca/Vit B6/B2 [L-Methyl-Mc Tablet]) 1 each PO DAILY [facility] Last Admin: 01/23/17 08:58 Dose: Not Given Non-Formulary Medication (Vitamin D3/Vitamin K2 [D3 + K2 Dots 1,000 Unit]) 1 tab PO DAILY [facility] Last Admin: 01/23/17 08:58 Dose: Not Given Pantoprazole Sodium (Protonix Iv) 40 mg IV DAILY [facility] Last Admin: 01/25/17 09:37 Dose: 40 mg Potassium Chloride (Klor-Con M20) 40 meq PO ONETIME ONE Stop: 01/23/17 09:31 Last Admin: 01/23/17 10:29 Dose: 40 meq - Exam Quality Assessment: DVT prophylaxis General: alert, oriented, cooperative, no acute distress Lungs: Decreased breath sounds, Wheezing. No: Crackles, Rales, Rhonchi, Rub, Stridor Cardiovascular: Regular Rate, Regular Rhythm, Murmurs Abdomen: bowel sounds present, soft, no tenderness, no distension Extremities: no edema Skin: warm, dry, intact - Problem List Review Problem List Initiated/Reviewed/Updated: Yes - Plan Plan:: ASSESSMENT / PLAN LEFT LUNG PNEUMONIA-no evidence of sepsis, stable since admission. Cultures remain negative, shortness of breath and cough have almost resolved -Saline lock IV -I and O -IV Antibiotic; Rocephin 1 gram IV, Zithromax 500mg IV every 24 hours -blood cultures x2 pending -sputum culture pending -Robitussin AC 10ml po every 4 hours prn painful cough PARKINSON DISEASE -continue medications as prescribed Hypokalemia-Potassium level now within normal range -recheck Potassium in am MAINTENANCE ISSUES -Orders home meds: -Nutrition: Regular diet, follow a Alkaline diet, request lemon water with meals -Barger catheter not indicated at this time -DVT: Lovenox 40 mg subcutaneous daily -PPI; not indicated CODE STATUS: DNR/DNI ADMISSION STATUS: Admit to [address] [place] [address] ADMISSION JUSTIFICATION This patient will be admitted for inpatient services and is medically appropriate meeting medical necessity for inpatient admission as outlined in my documentation. I reasonably expect the patient will require inpatient services that span. Time over 2 midnights. I reasonably expect this patient to be discharged or transferred within 96 hours after admission to the [facility]. DISPOSITION -Anticipate discharge to intermediate tomorrow PRIMARY CARE PROVIDER- Dr. Oviedo
[2017-01-26] MEDS: NALTREXONE 4.5 MG PO SCH (20:15)
[2017-01-26] MEDS: Azithromycin 500 MG in Sodium Chloride 0.9% 250 ML IV SCH (21:58)
[2017-01-26] MEDS: hydrALAZINE 10 MG Tab PO PRN (23:00)
[2017-01-27] MEDS ORDERED: hydrALAZINE 10 MG Tab PO STA (00:34)
[2017-01-27] MEDS ORDERED: hydrALAZINE 10 MG Tab PO PRN (00:35)
[2017-01-27] MEDS: Pantoprazole 40 MG Tab.CR PO SCH (07:09)
[2017-01-27] MEDS: Hydrochlorothiazide 25 MG Tab PO SCH (09:19)
[2017-01-27] MEDS: Tamsulosin 0.4 MG Cap.ER PO SCH (09:19)
[2017-01-27] MEDS: Finasteride 5 MG Tab PO SCH (09:20)
[2017-01-27] MEDS: THROID PO SCH (09:20)
[2017-01-27] MEDS: CYANOCOBALAMIN PO SCH (09:20)
[2017-01-27] MEDS: Carbidopa/Levodopa 50-200 MG Tab.ER PO SCH (09:21)
[2017-01-27] MEDS: Carbidopa/Levodopa 25-100 MG Tab PO SCH (09:21)
[2017-01-27 11:02] VITALS: BP 174/90
--- NOTE | 2017-01-27 12:09 | PCM.DCSUM1 ---
Discharge Summary - Hospital Course Brief History: This patient is an 86-year-old gentleman who was admitted through the emergency department because of unresponsiveness and underlying pneumonia. - Discharge Data Discharge Date: 01/27/17 Discharge Disposition: DC/Tfer to SNF 03 Condition: Fair - Discharge Diagnosis/Problem(s) (1) Pneumonia SNOMED Code(s): 821356365 ICD Code: J18.9 - PNEUMONIA, UNSPECIFIED ORGANISM Status: Acute Priority : High Current Visit: Yes Qualifiers: Pneumonia type: due to unspecified organism Laterality: left Lung location: lower lobe of lung Qualified Code(s): J18.1 - Lobar pneumonia, unspecified organism (2) Generalized weakness SNOMED Code(s): 43217916 ICD Code: R53.1 - WEAKNESS Status: Acute Priority: High Current Visit: Yes (3) Parkinsons disease SNOMED Code(s): 59707825 ICD Code: G20 - PARKINSON'S DISEASE Status: Chronic Priority: Medium Current Visit: Yes (4) CKD (chronic kidney disease) stage 3, GFR 30-59 ml/min SNOMED Code(s): 596339127 ICD Code: N18.3 - CHRONIC KIDNEY DISEASE, STAGE 3 (MODERATE) Status: Acute Current Visit: Yes - Patient Summary/Data Consults: Consultations 01/23/17 04:49 OT Evaluation and Treatment [CONS] Routine Please Evaluate and Treat. OT Reason for Consult: Discharge Planning This query below is only for informational purposes and is not editable. 01/23/17 14:43 Consult to Physical Therapy [PT Evaluation and Treatment] [CONS] Routine Please Evaluate and Treat. PT Reason for Consult: Strengthening, Parkinson's This query below is only for informational purposes and is not editable. Admission Diagnosis/Problem: Pneumonia Hospital Course: This patient is an 86-year-old gentleman who became progressively more weak and less responsive at home. He was brought into the emergency department for further evaluation, white blood cell count was elevated and he was found to have infiltrate on chest x-ray. Blood and sputum cultures were obtained at the time of admission and remained negative throughout his hospital stay. On admission to the hospital he was placed on IV fluids for hydration as well as IV antibiotic therapy with Rocephin and azithromycin. Over the course of his hospital stay he became more alert and interactive in his respiratory symptoms including cough and shortness of breath were resolved. He was treated with his usual medication for Parkinson's disease during the hospital stay. Renal function was decreased at the time of admission with elevation in creatinine from baseline. Renal function and return to baseline by the time of discharge following IV hydration. Activity will be as tolerated and he will resume his usual diet. Blood pressure was noted to be elevated during hospital stay, he will be continued on his usual dose of hydrochlorothiazide. He is allergic to evon inhibitors, heart rate was slow enough that it was felt he would be unlikely to tolerate beta alex or calcium channel alex. [facility] be [facility] to the [facility] on hydralazine 10 mg 3 times daily. He will also be continued on antibiotic therapy with levofloxacin 500 mg for an additional 4 days. Chest x-ray should be obtained in 2 weeks to assure resolution of the left lung infiltrate. On discharge he will go to the [facility] for restorative physical therapy and occupational therapy. - Patient Instructions Diet: Usual Diet as Tolerated Activity: As Tolerated Other/Special Instructions: Follow-up chest x-ray in 2 weeks to assure resolution of pneumonia. - Discharge Plan Prescriptions/Med Rec: Levofloxacin [Levaquin] 500 mg PO Q24H #4 tablet hydrALAZINE [Apresoline] 10 mg PO TID #90 tablet Home Medications: Home Meds Meloxicam [Mobic] 7.5 mg PO BID PRN 08/25/14 [History] Carbidopa/Levodopa [Carbidopa-Levo ER 50-200] 1 tab PO DAILY 12/30/15 [History] Carbidopa/Levodopa [Carbidopa-Levodopa 25-100 Tab] 1 tab PO TID 12/30/15 [ History] Hydrochlorothiazide 25 mg PO DAILY 12/30/15 [History] Thyroid,Pork [Nature-Throid] 65 mg PO DAILY 12/30/15 [History] Finasteride [Proscar] 5 mg PO DAILY 02/26/16 [History] Naltrexone 4.5 mg PO BEDTIME 02/26/16 [History] Tamsulosin [Flomax] 0.4 mg PO PCBREAKFAST #30 cap.er 02/29/16 [Rx] Vit B12/Lmefolate Ca/Vit B6/B2 [l-Methyl-Mc Tablet] 1 each PO DAILY 04/25/16 [ History] Vitamin D3/Vitamin K2 [D3 + K2 Dots 1,000 Unit] 1 tab PO WEEKLY 01/23/17 [ History] Levofloxacin [Levaquin] 500 mg PO Q24H #4 tablet 01/27/17 [Rx] hydrALAZINE [Apresoline] 10 mg PO TID #90 tablet 01/27/17 [Rx] - Patient Data Vitals - Most Recent: Last Vital Signs Temp 98 F 01/27/17 10:57 Pulse 68 01/27/17 10:57 Resp 18 01/27/17 10:57 BP 174/90 H 01/27/17 10:57 Pulse Ox 94 L 01/27/17 10:57 Weight - Most Recent: 184 lb 6.385 oz I&O - Last 24 hours: Intake & Output 01/26/17 01/27/17 01/27/17 22:59 06:59 14:59 Intake Total 300 240 480 Balance 300 240 480 Med Orders - Current: Current Medications Acetaminophen (Tylenol) 650 mg PO Q4H PRN PRN Reason: Pain (Mild 1-3)/fever Last Admin: 01/25/17 00:49 Dose: 650 mg Bisacodyl (Dulcolax) 5 mg PO DAILY PRN PRN Reason: Constipation Carbidopa/Levodopa (Sinemet 25-100 Mg) 1 tab PO TID [facility] Last Admin: 01/27/17 09:21 Dose: 1 tab Carbidopa/Levodopa (Sinemet Cr 50-200 Mg) 1 tab PO DAILY [facility] Last Admin: 01/27/17 09:21 Dose: 1 tab Docusate Sodium (Colace) 100 mg PO BID PRN PRN Reason: Constipation Last Admin: 01/26/17 20:15 Dose: 100 mg Enoxaparin Sodium (Lovenox) 40 mg SUBCUT Q24H [facility] Last Admin: 01/26/17 16:08 Dose: 40 mg Finasteride (Proscar) 5 mg PO DAILY [facility] Last Admin: 01/27/17 09:20 Dose: 5 mg Guaifenesin/Dextromethorphan (Robitussin Dm) 10 ml PO Q4H PRN PRN Reason: Cough Last Admin: 01/25/17 21:12 Dose: 10 ml Hydralazine HCl (Apresoline) 10 mg PO Q4H PRN PRN Reason: Hypertension Last Admin: 01/27/17 03:15 Dose: 10 mg Hydrochlorothiazide (Hydrochlorothiazide) 25 mg PO DAILY [facility] Last Admin: 01/27/17 09:19 Dose: 25 mg Azithromycin 500 mg/ Sodium (Chloride) 250 mls @ 250 mls/hr IV Q24H [facility] Last Admin: 01/26/17 21:58 Dose: 250 mls/hr Ceftriaxone Sodium 1 gm/ (Sodium Chloride) 50 mls @ 100 mls/hr IV Q24H [facility] Last Admin: 01/26/17 16:08 Dose: 100 mls/hr Lorazepam (Ativan) 1 mg IV Q6H PRN PRN Reason: Nausea/Vomiting Ondansetron HCl (Zofran Odt) 4 mg PO Q6H PRN PRN Reason: Nausea able to take PO Pantoprazole Sodium (Protonix) 40 mg PO ACBREAKFAST [facility] Last Admin: 01/27/17 07:09 Dose: 40 mg Throid 65mg Tab ( (Ptom)) 0 each PO DAILY [facility] Last Admin: 01/27/17 09:20 Dose: 1 each Naltrexone 4.5mg Cap ((Ptom)) 0 each PO BEDTIME [facility] Last Admin: 01/26/17 20:15 Dose: 1 each Vit B12 1,100mcg ( (Ptom)) 0 each PO DAILY [facility] Last Admin: 01/27/17 09:20 Dose: 1 each Vit D3/K2 10, 000unit/90 Mcg (Ptom ) 0 each PO We@1200 [facility] Last Admin: 01/24/17 11:46 Dose: 1 each Senna/Docusate Sodium (Senna Plus) 1 tab PO BID PRN PRN Reason: Constipation Sodium Chloride (Saline Flush) 10 ml FLUSH ASDIRECTED PRN PRN Reason: Keep Vein Open Last Admin: 01/26/17 16:08 Dose: 10 ml Tamsulosin HCl (Flomax) 0.4 mg PO PCBREAKFAST [facility] Last Admin: 01/27/17 09:19 Dose: 0.4 mg Discontinued Medications Carbidopa/Levodopa (Sinemet Cr 50-200 Mg) 1 tab PO ONETIME [facility] Hydralazine HCl (Apresoline) 5 mg PO Q6H PRN PRN Reason: Hypertension Last Admin: 01/26/17 23:00 Dose: 5 mg Hydralazine HCl (Apresoline) 5 mg PO NOW STA Stop: 01/27/17 00:35 Last Admin: 01/27/17 00:40 Dose: 5 mg Sodium Chloride (Normal Saline) 1,000 mls @ 125 mls/hr IV ASDIRECTED [facility] Last Admin: 01/24/17 05:05 Dose: 125 mls/hr Azithromycin 500 mg/ Sodium (Chloride) 250 mls @ 250 mls/hr IV ONETIME ONE Stop: 01/23/17 03:22 Last Admin: 01/23/17 02:57 Dose: 250 mls/hr Ceftriaxone Sodium 1 gm/ (Sodium Chloride) 50 mls @ 100 mls/hr IV ONETIME ONE Stop: 01/23/17 02:52 Last Admin: 01/23/17 02:52 Dose: 100 mls/hr Potassium Chloride 20 meq/ (Premix) 100 mls @ 50 mls/hr IV ONETIME ONE Stop: 01/23/17 05:59 Last Admin: 01/23/17 06:03 Dose: 50 mls/hr Lidocaine HCl (Xylocaine-Mpf 1%) 2 ml INJECT ONETIME ONE Stop: 01/23/17 05:51 Last Admin: 01/23/17 06:03 Dose: 2 ml Non-Formulary Medication (Naltrexone [Naltrexone]) 4.5 mg PO BEDTIME [facility] Non-Formulary Medication (Thyroid,Pork [Nature-Throid]) 65 mg PO DAILY [facility] Non-Formulary Medication (Vit B12/Lmefolate Ca/Vit B6/B2 [L-Methyl-Mc Tablet]) 1 each PO DAILY [facility] Last Admin: 01/23/17 08:58 Dose: Not Given Non-Formulary Medication (Vitamin D3/Vitamin K2 [D3 + K2 Dots 1,000 Unit]) 1 tab PO DAILY [facility] Last Admin: 01/23/17 08:58 Dose: Not Given Pantoprazole Sodium (Protonix Iv) 40 mg IV DAILY [facility] Last Admin: 01/25/17 09:37 Dose: 40 mg Potassium Chloride (Klor-Con M20) 40 meq PO ONETIME ONE Stop: 01/23/17 09:31 Last Admin: 01/23/17 10:29 Dose: 40 meq *Q Meaningful Use (DIS) - VTE *Q VTE Criteria *Q: - Stroke *Q Stroke Criteria *Q: - AMI *Q AMI Criteria *Q:
== END 2017-01-27 13:10 | DRG 195 ==
LOC: JP.ED 01:13 → JP.MS 03:18
PROVIDERS: ADMIT Hospitalist; ATTEND Hospitalist
DX: J18.1 Lobar pneumonia, unspecified organism (principal); I12.9 Hypertensive chronic kidney disease with stage 1 through stage 4 chronic kidney disease, or unspecified chronic kidney disease; N18.3 Chronic kidney disease, stage 3 (moderate); G20 Parkinson's disease; E03.9 Hypothyroidism, unspecified; E87.6 Hypokalemia; R53.1 Weakness; Z66 Do not resuscitate; R50.9 Fever, unspecified; R05 Cough; H54.7 Unspecified visual loss; Z96.659 Presence of unspecified artificial knee joint; Z88.0 Allergy status to penicillin; Z88.8 Allergy status to other drugs, medicaments and biological substances
CPT/HCPCS: 36415; 71010 ×2; 80053; 82150; 83605; 83690; 85027; 87040 ×2; 87070; 87077; 87205; 93005; 96361; 96365; 96368; 99285; J0456; J0696; J7040; J7050 ×3; 80048; 81001; 83735; 85025; 93010; 97110-GP; 97162-GP; 97165-GO; 99284; A9270-GY; C9113; J1650; J3480

== ENCOUNTER 2017-05-08 13:27 | Emergency (ER) | payer MEDICARE, BC ==
[2017-05-08 13:49] VITALS: BP 141/83
--- NOTE | 2017-05-08 14:24 | EDM.PDOC ---
ED HPI GENERAL MEDICAL PROBLEM - General Chief Complaint: Cardiovascular Problem Stated Complaint: POSSIBLY DEHYDRATED BLOOD PRESSURE IS HIGH Time Seen by Provider: 05/08/17 14:16 Source of Information: Reports: Patient History Limitations: Reports: No Limitations - History of Present Illness INITIAL COMMENTS - FREE TEXT/NARRATIVE: 86-year-old male who hasn't felt well for the past 12 hours, his took his blood pressure this morning and was 120/80 which is low for him. He felt lightheaded but ate a good breakfast. He had no shortness of breath, no nausea or vomiting, no diarrhea, no chest pain. She retook his blood pressure and it was even slightly lower so she went into the clinic and they sent him to the emergency room. His blood pressure is now 143/80. He still just doesn't feel right but no specific complaints. She held his blood pressure medications this morning. She weighs him daily, they take blood pressures daily, his has a folder full of paperwork of vitals that they follow extremely closely. Onset: Unknown/Unsure Severity: Mild Associated Symptoms: Reports: Malaise (Slight general malaise and weakness, no other specific symptoms) - Related Data Allergies Allergy/AdvReac Type Severity Reaction Status Date / Time ephedrine Allergy Other Verified 05/08/17 13:50 lisinopril Allergy Other Verified 05/08/17 13:50 tramadol Allergy Other Verified 05/08/17 13:50 hydrocodone AdvReac Confusion Verified 05/08/17 13:50 oxycodone AdvReac Confusion Verified 05/08/17 13:50 Penicillins AdvReac Rash Verified 05/08/17 13:50 Home Meds: Home Meds Meloxicam [Mobic] 7.5 mg PO BID PRN 08/25/14 [History] Carbidopa/Levodopa [Carbidopa-Levo ER 50-200] 1 tab PO DAILY 12/30/15 [History] Carbidopa/Levodopa [Carbidopa-Levodopa 25-100 Tab] 1 tab PO TID 12/30/15 [ History] Hydrochlorothiazide 25 mg PO DAILY 12/30/15 [History] Thyroid,Pork [Nature-Throid] 65 mg PO DAILY 12/30/15 [History] Finasteride [Proscar] 5 mg PO DAILY 02/26/16 [History] Naltrexone 4.5 mg PO BEDTIME 02/26/16 [History] Tamsulosin [Flomax] 0.4 mg PO PCBREAKFAST #30 cap.er 02/29/16 [Rx] Vit B12/Lmefolate Ca/Vit B6/B2 [l-Methyl-Mc Tablet] 1 each PO DAILY 04/25/16 [ History] Vitamin D3/Vitamin K2 [D3 + K2 Dots 1,000 Unit] 1 tab PO WEEKLY 01/23/17 [ History] hydrALAZINE [Apresoline] 10 mg PO TID #90 tablet 01/27/17 [Rx] Past Medical History HEENT History: Reports: Cataract, Impaired Vision, Macular Degeneration Cardiovascular History: Reports: Hypertension, Other (See Below) Other Cardiovascular History: PVC's Gastrointestinal History: Reports: Chronic Constipation Genitourinary History: Reports: Renal Calculus, Urinary Incontinence, Other ( See Below) Other Genitourinary History: Urinary frequency Musculoskeletal History: Reports: Fracture, Gout Neurological History: Reports: Parkinson's Endocrine/Metabolic History: Reports: Hypothyroidism - Infectious Disease History Infectious Disease History: Reports: Measles - Past Surgical History HEENT Surgical History: Reports: Cataract Surgery Musculoskeletal Surgical History: Reports: Knee Replacement Social & Family History - Family History Family Medical History: Noncontributory - Tobacco Use Smoking Status *Q: Never Smoker Month Tobacco Last Used: 50 years Second Hand Smoke Exposure: No - Caffeine Use Caffeine Use: Reports: Coffee - Recreational Drug Use Recreational Drug Use: No - Living Situation & Occupation Living situation: Reports: Occupation: Retired ED ROS GENERAL - Review of Systems Review Of Systems: See Below Constitutional: Reports: Malaise, Weakness. Denies: Fever, Chills HEENT: Reports: No Symptoms Respiratory: Reports: Cough (Does have a lingering cough from recent bronchitis) . Denies: Shortness of Breath Cardiovascular: Denies: Chest Pain, Palpitations Endocrine: Reports: Fatigue GI/Abdominal: Denies: Abdominal Pain, Nausea, Vomiting : Reports: No Symptoms Skin: Reports: No Symptoms Neurological: Reports: Weakness. Denies: Dizziness Psychiatric: Reports: No Symptoms ED EXAM, GENERAL - Physical Exam Exam: See Below Exam Limited By: No Limitations General Appearance: Alert, No Apparent Distress Eye Exam: Bilateral Eye: EOMI Head: Atraumatic Respiratory/Chest: No Respiratory Distress, Lungs Clear Cardiovascular: Regular Rate, Rhythm, No Edema. No: Extra Beats GI/Abdominal: Soft, Non-Tender Neurological: Alert, Oriented Psychiatric: Normal Mood, Flat Affect Skin Exam: Warm, Dry Course - Vital Signs Last Recorded V/S: Last Vital Signs Temp 97.4 F 05/08/17 13:56 Pulse 64 05/08/17 13:56 Resp 16 05/08/17 13:56 BP 141/83 H 05/08/17 13:56 Pulse Ox 98 05/08/17 13:56 - Orders/Labs/Meds Labs: Laboratory Tests 05/08/17 05/08/17 Range/Units 14:30 14:30 WBC 11.7 H (4.5-11.0) K/uL RBC 4.46 (4.30-5.90) M/uL Hgb 13.7 (12.0-15.0) g/dL Hct 40.6 (40.0-54.0) % MCV 91 (80-98) fL MCH 31 (27-31) pg MCHC 34 (32-36) % Plt Count 205 (150-400) K/uL Neut % (Auto) 74 H (36-66) % Lymph % (Auto) 14 L (24-44) % Blaine % (Auto) 10 H (2-6) % Eos % (Auto) 1 L (2-4) % Baso % (Auto) 0 (0-1) % Sodium 141 (140-148) mmol/L Potassium 3.6 (3.6-5.2) mmol/L Chloride 104 (100-108) mmol/L Carbon Dioxide 33 H (21-32) mmol/L Anion Gap 7.6 (5.0-14.0) mmol/L BUN 31 H D (7-18) mg/dL Creatinine 1.2 (0.8-1.3) mg/dL Est Cr Clr Drug Dosing 42.75 mL/min Estimated GFR (MDRD) 57 L (>60) Glucose 102 (74-106) mg/dL Calcium 8.5 (8.5-10.1) mg/dL Total Bilirubin 0.7 (0.2-1.0) mg/dL AST 16 (15-37) U/L ALT 9 L (12-78) U/L Alkaline Phosphatase 87 (46-116) U/L Troponin I < 0.017 (0.000-0.056) ng/mL Total Protein 6.9 (6.4-8.2) g/dL Albumin 3.2 L (3.4-5.0) g/dL Globulin 3.7 H (2.3-3.5) g/dL Albumin/Globulin Ratio 0.9 L (1.2-2.2) - Re-Assessments/Exams Free Text/Narrative Re-Assessment/Exam: 05/08/17 15:07 Patient was weighed here and weighed 186 pounds, 10 pounds more than wait at home but he has eaten 2 meals and is fully clothed. His blood pressure remained relatively elevated with a systolic of 140-150 in the emergency room. CBC CMP troponin were obtained. 05/08/17 15:20 Labs are all very reassuring. White blood cell count is slightly elevated, BUN is slightly elevated and GFR is slightly decreased but they are all at levels that are consistent with past readings. Patient remained asymptomatic. Patient was reassured and discharged without treatment. He is going to hold his hydrochlorothiazide today but I recommended taking his hydralazine as usual. Departure - Departure Time of Disposition: 15:46 Disposition: Home, Self-Care 01 Condition: Good Clinical Impression: Idiopathic hypotension, Generalized weakness Instructions: Hypotension, [id number] Referrals: Abhinav Oviedo MD [Primary Care Provider] - Forms: ED Department Discharge Care Plan Goals: Take hydralazine today but hold hydrochlorothiazide until tomorrow. Resume regular activity and diet and return anytime if worsening or concerns.
== END 2017-05-08 15:46 | disposition home or self-care (01) ==
LOC: JP.ED 13:27
DX: I95.0 Idiopathic hypotension (principal); R53.1 Weakness; I10 Essential (primary) hypertension; E03.9 Hypothyroidism, unspecified; Z96.659 Presence of unspecified artificial knee joint; Z87.891 Personal history of nicotine dependence; Z88.8 Allergy status to other drugs, medicaments and biological substances; Z88.5 Allergy status to narcotic agent; Z88.0 Allergy status to penicillin; Z79.899 Other long term (current) drug therapy
CPT/HCPCS: 36415; 80053; 84484; 85025; 99284

== ENCOUNTER 2017-09-21 20:36 | Inpatient (IN) | payer MEDICARE, BC ==
[2017-09-21] MEDS ORDERED: Ibuprofen 600 MG Tab PO ONE (21:30)
[2017-09-21] MEDS ORDERED: Lactated Ringers 1,000 ML IV SCH (21:30)
--- NOTE | 2017-09-21 21:32 | EDM.PDOC ---
ED HPI GENERAL MEDICAL PROBLEM - General Chief Complaint: Fever Stated Complaint: ILLNESS Time Seen by Provider: 09/21/17 21:19 Source of Information: Reports: Patient, Old Records, RN Notes Reviewed History Limitations: Reports: No Limitations - History of Present Illness INITIAL COMMENTS - FREE TEXT/NARRATIVE: 87-year-old gentleman presents to the emergency department today via EMS services for fever, weakness, he states this all started over the last 2-3 days , he did contact his primary care provider was started on doxycycline today however is only taken 1 dose. He does admit that his was recently ill about 2 weeks prior, he did receive a flu shot this year. His other complaint is difficulty with urination - Related Data Allergies Allergy/AdvReac Type Severity Reaction Status Date / Time ephedrine Allergy Other Verified 05/08/17 13:50 lisinopril Allergy Other Verified 05/08/17 13:50 tramadol Allergy Other Verified 05/08/17 13:50 hydrocodone AdvReac Confusion Verified 05/08/17 13:50 oxycodone AdvReac Confusion Verified 05/08/17 13:50 Penicillins AdvReac Rash Verified 05/08/17 13:50 Home Meds: Home Meds Meloxicam [Mobic] 7.5 mg PO BID PRN 08/25/14 [History] Carbidopa/Levodopa [Carbidopa-Levo ER 50-200] 1 tab PO DAILY 12/30/15 [History] Carbidopa/Levodopa [Carbidopa-Levodopa 25-100 Tab] 1 tab PO TID 12/30/15 [ History] Hydrochlorothiazide 25 mg PO DAILY 12/30/15 [History] Thyroid,Pork [Nature-Throid] 65 mg PO DAILY 12/30/15 [History] Finasteride [Proscar] 5 mg PO DAILY 02/26/16 [History] Naltrexone 4.5 mg PO BEDTIME 02/26/16 [History] Tamsulosin [Flomax] 0.4 mg PO PCBREAKFAST #30 cap.er 02/29/16 [Rx] Vit B12/Lmefolate Ca/Vit B6/B2 [l-Methyl-Mc Tablet] 1 each PO DAILY 04/25/16 [ History] Vitamin D3/Vitamin K2 [D3 + K2 Dots 1,000 Unit] 1 tab PO WEEKLY 01/23/17 [ History] hydrALAZINE [Apresoline] 10 mg PO TID #90 tablet 01/27/17 [Rx] Past Medical History HEENT History: Reports: Cataract, Impaired Vision, Macular Degeneration Cardiovascular History: Reports: Hypertension, Other (See Below) Other Cardiovascular History: PVC's Gastrointestinal History: Reports: Chronic Constipation Genitourinary History: Reports: Renal Calculus, Urinary Incontinence, Other ( See Below) Other Genitourinary History: Urinary frequency Musculoskeletal History: Reports: Fracture, Gout Neurological History: Reports: Parkinson's Endocrine/Metabolic History: Reports: Hypothyroidism - Infectious Disease History Infectious Disease History: Reports: Measles - Past Surgical History HEENT Surgical History: Reports: Cataract Surgery Musculoskeletal Surgical History: Reports: Knee Replacement Social & Family History - Family History Family Medical History: Noncontributory - Tobacco Use Smoking Status *Q: Never Smoker Month Tobacco Last Used: 50 years Second Hand Smoke Exposure: No - Caffeine Use Caffeine Use: Reports: Coffee - Recreational Drug Use Recreational Drug Use: No - Living Situation & Occupation Living situation: Reports: Occupation: Retired ED ROS GENERAL - Review of Systems Review Of Systems: See Below Constitutional: Reports: Fever, Chills, Weakness HEENT: Reports: No Symptoms Respiratory: Reports: No Symptoms Cardiovascular: Reports: No Symptoms GI/Abdominal: Reports: No Symptoms : Reports: Urinary Retention Musculoskeletal: Reports: No Symptoms Skin: Reports: No Symptoms Neurological: Reports: No Symptoms ED EXAM, GENERAL - Physical Exam Exam: See Below Free Text/Narrative:: General: Male, ill-appearing but not in any distress, alert and oriented x3 HEENT: head is atraumatic normocephalic, eyes pupils equal round reactive to light, sclera clear no conjunctivitis appreciated. Ears tympanic membranes clear and mcmillan landmarks and light reflex are present bilaterally canals are clear. Nose no septal deviation, nares are clear, no blood present. Mouth mucosa is moist and pink no erythema or exudate noted in soft palate, tongue is midline uvula is midline, dentition is intact. Neck: Supple no thyromegaly no tracheal deviation. Nodes: Cervical nodes subclavicular nodes nontender no palpable lymphadenopathy noted. Lungs: Breath sounds are distant I don't appreciate any adventitious noises CV: Regular rate and rhythm S1 and S2 appreciated no murmurs rubs or gallops noted. Abdomen: Soft, nontender, no palpable masses or organomegaly appreciated, no distention no guarding bowel sounds are present, . Neuro: Cranial nerves II through XII grossly intact Skin: Warm and dry, intact Extremities: No lower extremity edema appreciated, Course - Vital Signs Last Recorded V/S: Last Vital Signs Temp 101.1 F H 09/21/17 22:13 Pulse 86 09/21/17 22:13 Resp 20 09/21/17 20:39 BP 159/71 H 09/21/17 22:13 Pulse Ox 96 09/21/17 22:13 - Orders/Labs/Meds Orders: Active Orders 24 hr Category Date Time Status Vital Signs [RC] Q1H Care 09/21/17 21:27 Active Chest 2V [CR] Urgent Exams 09/21/17 21:29 Taken CULTURE BLOOD [BC] Urgent Lab 09/21/17 21:27 Received CULTURE BLOOD [BC] Urgent Lab 09/21/17 21:27 Received Doxycycline [Vibramycin] 100 mg Med 09/21/17 23:10 Active Sodium Chloride 0.9% [Normal Saline] 100 ml IV ONETIME Lactated Ringers [Ringers, Lactated] 1,000 ml Med 09/21/17 21:30 Active IV ASDIRECTED Blood Culture x2 Reflex Set [OM.PC] Urgent Oth 09/21/17 21:27 Ordered Medication Orders Lactated Ringer's (Ringers, Lactated) 1,000 mls @ 999 mls/hr IV ASDIRECTED ANN Last Admin: 09/21/17 21:45 Dose: 999 mls/hr Doxycycline Hyclate 100 mg/ (Sodium Chloride) 100 mls @ 100 mls/hr IV ONETIME ONE Stop: 09/22/17 00:09 Last Admin: 09/21/17 23:32 Dose: 100 mls/hr Labs: Laboratory Tests 09/21/17 09/21/17 09/21/17 Range/Units 21:27 21:27 21:27 WBC 10.7 (4.5-11.0) K/uL RBC 4.51 (4.30-5.90) M/uL Hgb 13.7 (12.0-15.0) g/dL Hct 41.2 (40.0-54.0) % MCV 91 (80-98) fL MCH 30 (27-31) pg MCHC 33 (32-36) % Plt Count 172 (150-400) K/uL Neut % (Auto) 79 H (36-66) % Lymph % (Auto) 9 L (24-44) % [place] % (Auto) 11 H (2-6) % Eos % (Auto) 1 L (2-4) % Baso % (Auto) 0 (0-1) % Sodium 143 (140-148) mmol/L Potassium 3.8 (3.6-5.2) mmol/L Chloride 105 (100-108) mmol/L Carbon Dioxide 30 (21-32) mmol/L Anion Gap 7.9 (5.0-14.0) mmol/L BUN 32 H (7-18) mg/dL Creatinine 1.5 H (0.8-1.3) mg/dL Est Cr Clr Drug Dosing 31.31 mL/min Estimated GFR (MDRD) 44 L (>60) Glucose 118 H (74-106) mg/dL Lactic Acid 1.3 (0.4-2.0) mmol/L Calcium 9.0 (8.5-10.1) mg/dL Total Bilirubin 0.7 (0.2-1.0) mg/dL AST 16 (15-37) U/L ALT 8 L (12-78) U/L Alkaline Phosphatase 85 (46-116) U/L C-Reactive Protein 7.02 H (0.0-0.3) mg/dL Total Protein 6.4 (6.4-8.2) g/dL Albumin 3.5 (3.4-5.0) g/dL Globulin 2.9 (2.3-3.5) g/dL Albumin/Globulin Ratio 1.2 (1.2-2.2) Urine Color Urine Appearance Urine pH (4.5-8.0) Ur Specific [place] (1.008-1.030) Urine Protein (NEGATIVE) mg/dL Urine Glucose (UA) (NEGATIVE) mg/dL Urine Ketones (NEGATIVE) mg/dL Urine Occult Blood (NEGATIVE) Urine Nitrite (NEGAITVE) Urine Bilirubin (NEGATIVE) Urine Urobilinogen (NORMAL) mg/dL Ur Leukocyte Esterase (NEGATIVE) Urine RBC (0-5) Urine WBC (0-5) Ur Epithelial Cells Amorphous Sediment Urine Bacteria Urine Mucus 09/21/17 Range/Units 21:38 WBC (4.5-11.0) K/uL RBC (4.30-5.90) M/uL Hgb (12.0-15.0) g/dL Hct (40.0-54.0) % MCV (80-98) fL MCH (27-31) pg MCHC (32-36) % Plt Count (150-400) K/uL Neut % (Auto) (36-66) % Lymph % (Auto) (24-44) % [place] % (Auto) (2-6) % Eos % (Auto) (2-4) % Baso % (Auto) (0-1) % Sodium (140-148) mmol/L Potassium (3.6-5.2) mmol/L Chloride (100-108) mmol/L Carbon Dioxide (21-32) mmol/L Anion Gap (5.0-14.0) mmol/L BUN (7-18) mg/dL Creatinine (0.8-1.3) mg/dL Est Cr Clr Drug Dosing mL/min Estimated GFR (MDRD) (>60) Glucose (74-106) mg/dL Lactic Acid (0.4-2.0) mmol/L Calcium (8.5-10.1) mg/dL Total Bilirubin (0.2-1.0) mg/dL AST (15-37) U/L ALT (12-78) U/L Alkaline Phosphatase (46-116) U/L C-Reactive Protein (0.0-0.3) mg/dL Total Protein (6.4-8.2) g/dL Albumin (3.4-5.0) g/dL Globulin (2.3-3.5) g/dL Albumin/Globulin Ratio (1.2-2.2) Urine Color Yellow Urine Appearance Clear Urine pH 5.0 (4.5-8.0) Ur Specific [place] 1.020 (1.008-1.030) Urine Protein Negative (NEGATIVE) mg/dL Urine Glucose (UA) Normal (NEGATIVE) mg/dL Urine Ketones Negative (NEGATIVE) mg/dL Urine Occult Blood Negative (NEGATIVE) Urine Nitrite Negative (NEGAITVE) Urine Bilirubin Negative (NEGATIVE) Urine Urobilinogen Normal (NORMAL) mg/dL Ur Leukocyte Esterase Negative (NEGATIVE) Urine RBC 0-5 (0-5) Urine WBC 0-5 (0-5) Ur Epithelial Cells Not seen Amorphous Sediment Moderate Urine Bacteria Not seen Urine Mucus Not seen Meds: Medications Generic Name Dose Route Start Last Admin Trade Name Freq PRN Reason Stop Dose Admin Lactated Ringer's 1,000 mls @ 999 mls/hr 09/21/17 21:30 09/21/17 21:45 Ringers, Lactated IV 999 mls/hr ASDIRECTED ANN Administration Doxycycline Hyclate 100 mg/ 100 mls @ 100 mls/hr 09/21/17 23:10 09/21/17 23: 32 Sodium Chloride IV 09/22/17 00:09 100 mls/hr ONETIME ONE Administration Discontinued Medications Generic Name Dose Route Start Last Admin Trade Name Freq PRN Reason Stop Dose Admin Ibuprofen 600 mg 09/21/17 21:30 09/21/17 21:42 Motrin PO 09/21/17 21:31 600 mg ONETIME ONE Administration Departure - Departure Time of Disposition: 23:52 Disposition: Admitted As Inpatient 66 Condition: Fair Clinical Impression: Generalized weakness, Bronchitis - Discharge Information Referrals: PCP,None [Primary Care Provider] - Forms: ED Department Discharge - My Orders Last 24 Hours: My Active Orders 09/21/17 21:27 Vital Signs [RC] Q1H CULTURE BLOOD [BC] Urgent CULTURE BLOOD [BC] Urgent Blood Culture x2 Reflex Set [OM.PC] Urgent 09/21/17 21:29 Chest 2V [CR] Urgent 09/21/17 21:30 Lactated Ringers [Ringers, Lactated] 1,000 ml IV ASDIRECTED 09/21/17 23:10 Doxycycline [Vibramycin] 100 mg Sodium Chloride 0.9% [Normal Saline] 100 ml IV ONETIME - Assessment/Plan Last 24 Hours: My Active Orders 09/21/17 21:27 Vital Signs [RC] Q1H CULTURE BLOOD [BC] Urgent CULTURE BLOOD [BC] Urgent Blood Culture x2 Reflex Set [OM.PC] Urgent 09/21/17 21:29 Chest 2V [CR] Urgent 09/21/17 21:30 Lactated Ringers [Ringers, Lactated] 1,000 ml IV ASDIRECTED 09/21/17 23:10 Doxycycline [Vibramycin] 100 mg Sodium Chloride 0.9% [Normal Saline] 100 ml IV ONETIME Plan: Assessment Acuity = acute Site and laterality = bronchitis complicated in a patient with known history of Parkinson's disease Etiology = suspicious for bacterial cause Manifestations = weakness, fever Location of injury = Home Lab values = CBC unremarkable creatinine elevated 1.5 consistent chronic renal failure stage G IIIB CRP elevated 7.07, chest x-ray I did review films myself I cannot appreciate any acute process, the official read from radiology is pending urinalysis unremarkable Plan Discussed case with physician 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
[2017-09-21] MEDS ORDERED: Doxycycline 100 MG in Sodium Chloride 0.9% 100 ML IV ONE (23:10)
[2017-09-22] MEDS ORDERED: Meloxicam 7.5 MG Tab PO PRN (00:04)
[2017-09-22] MEDS: Lactated Ringers 1,000 ML IV SCH ×3 (01:23→22:33)
[2017-09-22] MEDS: Acetaminophen 325 MG Tab PO PRN ×2 (07:22→15:21)
[2017-09-22] MEDS ORDERED: Potassium Chloride 40 MEQ in Premix Bag 1 BAG IV ONE (08:52)
[2017-09-22] MEDS ORDERED: Hydrochlorothiazide 25 MG Tab PO SCH (09:00)
[2017-09-22] MEDS: hydrALAZINE 10 MG Tab PO SCH ×3 (09:26→20:00)
[2017-09-22] MEDS: Tamsulosin 0.4 MG Cap.ER PO SCH (09:27)
[2017-09-22] MEDS: Finasteride 5 MG Tab PO SCH (09:27)
[2017-09-22] MEDS ORDERED: Potassium Chloride 20 MEQ Tab.ER PO ONE (09:30)
[2017-09-22] MEDS: Potassium Chloride 20 MEQ, Lidocaine 1% 2 ML in Sodium Chloride 0.9% 100 ML IV SCH ×2 (09:36→15:06)
[2017-09-22] MEDS: Doxycycline 100 MG in Sodium Chloride 0.9% 100 ML IV SCH ×2 (11:51→22:30)
[2017-09-22] MEDS ORDERED: Hydrochlorothiazide 12.5 MG Cap PO SCH (12:30)
[2017-09-22] MEDS: Carbidopa/Levodopa 50-200 MG Tab.ER PO SCH (12:51)
[2017-09-22] MEDS: Hydrochlorothiazide 25 MG Tab PO SCH (12:51)
[2017-09-22] MEDS ORDERED: Carbidopa/Levodopa 25-100 MG Tab PO SCH (14:00)
--- NOTE | 2017-09-22 15:09 | PCM.PN ---
- General Info Date of Service: 09/22/17 Subjective Update: Patient is an 87-year-old gentleman who presented to the emergency department last night with weakness and fever. He has had symptoms of cough over the past 2 -3 days as well, white blood cell count was within normal range, chest x-ray showed no obvious infiltrate. He has been given IV fluids for hydration as well as IV antibiotic therapy with doxycycline. Today he feels modestly improved, energy level is somewhat better. He did have temperature elevation earlier today. - Review of Systems General: Reports: Fever, Weakness, Chills. Denies: Appetite Pulmonary: Reports: Shortness of Breath, Cough. Denies: Pleuritic Chest Pain, Sputum, Hemoptysis, Wheezing Cardiovascular: Reports: Dyspnea on Exertion. Denies: Chest Pain, Palpitations , Orthopnea, PND, Edema, Lightheadedness Gastrointestinal: Reports: No Symptoms - Patient Data Vitals - Most Recent: Last Vital Signs Temp 99.7 F 09/22/17 14:59 Pulse 65 09/22/17 14:59 Resp 18 09/22/17 14:59 BP 156/81 H 09/22/17 14:59 Pulse Ox 95 09/22/17 14:59 Weight - Most Recent: 183 lb 10.321 oz I&O - Last 24 Hours: Intake & Output 09/22/17 09/22/17 09/22/17 06:59 14:59 22:59 Intake Total 840 300 Output Total 550 150 Balance 290 150 Lab Results Last 24 Hours: Laboratory Results - last 24 hr 09/22/17 09/22/17 Range/Units 05:28 05:28 WBC 9.5 (4.5-11.0) K/uL RBC 4.21 L (4.30-5.90) M/uL Hgb 12.4 (12.0-15.0) g/dL Hct 38.4 L (40.0-54.0) % MCV 91 (80-98) fL MCH 30 (27-31) pg MCHC 32 (32-36) % Plt Count 159 (150-400) K/uL Sodium 143 (140-148) mmol/L Potassium 3.1 L (3.6-5.2) mmol/L Chloride 106 (100-108) mmol/L Carbon Dioxide 30 (21-32) mmol/L Anion Gap 10.1 (5.0-14.0) mmol/L BUN 29 H (7-18) mg/dL Creatinine 1.4 H (0.8-1.3) mg/dL Est Cr Clr Drug Dosing 34.75 mL/min Estimated GFR (MDRD) 48 L (>60) Glucose 94 (74-106) mg/dL Calcium 8.6 (8.5-10.1) mg/dL Med Orders - Current: Current Medications Acetaminophen (Tylenol) 650 mg PO Q4H PRN PRN Reason: Pain (Mild 1-3)/fever Last Admin: 09/22/17 07:22 Dose: 650 mg Carbidopa/Levodopa (Sinemet Cr 50-200 Mg) 1 tab PO DAILY [facility] Last Admin: 09/22/17 12:51 Dose: 1 tab Carbidopa/Levodopa (Sinemet 25-100 Mg) 2 tab PO TIDMEALS [facility] Carbidopa/Levodopa (Sinemet 25-100 Mg) 2 tab PO BID@1700,2200 [facility] Stop: 09/22/17 22:01 Enoxaparin Sodium (Lovenox) 40 mg SUBCUT Q24H [facility] Finasteride (Proscar) 5 mg PO DAILY [facility] Last Admin: 09/22/17 09:27 Dose: 5 mg Hydralazine HCl (Apresoline) 10 mg PO TID [facility] Last Admin: 09/22/17 09:26 Dose: 10 mg Hydrochlorothiazide (Hydrochlorothiazide) 25 mg PO DAILY [facility] Last Admin: 09/22/17 12:51 Dose: 25 mg Doxycycline Hyclate 100 mg/ (Sodium Chloride) 100 mls @ 100 mls/hr IV Q12H [facility] Last Admin: 09/22/17 11:51 Dose: 100 mls/hr Lactated Ringer's (Ringers, Lactated) 1,000 mls @ 50 mls/hr IV ASDIRECTED [facility] Meloxicam (Mobic) 7.5 mg PO BID PRN PRN Reason: gout Naltrexone 4.5mg Cap ((Ptom)) 0 each PO BEDTIME [facility] Nature Throid 65mg ( (Ptom)) 0 each PO DAILY [facility] Tamsulosin HCl (Flomax) 0.4 mg PO PCBREAKFAST [facility] Last Admin: 09/22/17 09:27 Dose: 0.4 mg Discontinued Medications Carbidopa/Levodopa (Sinemet 25-100 Mg) 2 tab PO TID [facility] Last Admin: 09/22/17 12:51 Dose: 2 tab Lactated Ringer's (Ringers, Lactated) 1,000 mls @ 999 mls/hr IV ASDIRECTED [facility] Last Admin: 09/21/17 21:45 Dose: 999 mls/hr Doxycycline Hyclate 100 mg/ (Sodium Chloride) 100 mls @ 100 mls/hr IV ONETIME ONE Stop: 09/22/17 00:09 Last Admin: 09/21/17 23:32 Dose: 100 mls/hr Lactated Ringer's (Ringers, Lactated) 1,000 mls @ 125 mls/hr IV ASDIRECTED [facility] Last Admin: 09/22/17 09:14 Dose: 125 mls/hr Potassium Chloride 20 meq/Lidocaine HCl 2 ml/ Sodium Chloride 112 mls @ 56 mls/ hr IV Q2H [facility] Stop: 09/22/17 13:59 Last Admin: 09/22/17 09:36 Dose: 56 mls/hr Ibuprofen (Motrin) 600 mg PO ONETIME ONE Stop: 09/21/17 21:31 Last Admin: 09/21/17 21:42 Dose: 600 mg Potassium Chloride (Klor-Con M20) 40 meq PO ONETIME ONE Stop: 09/22/17 09:31 Last Admin: 09/22/17 09:27 Dose: 40 meq Thyroid ([place] Thyroid) 60 mg PO DAILY [facility] Last Admin: 09/22/17 09:26 Dose: 60 mg - Exam Quality Assessment: Supplemental Oxygen, DVT Prophylaxis General: Alert, Oriented, Cooperative, Mild Distress Lungs: Normal Respiratory Effort, Rhonchi. No: Crackles, Rales, Wheezing Cardiovascular: Regular Rate, Regular Rhythm, Murmurs GI/Abdominal Exam: Soft, Non-Tender, No Organomegaly, No Distention Extremities: Non-Tender, No Pedal Edema Skin: Warm, Dry, Intact - Problem List Review Problem List Initiated/Reviewed/Updated: Yes - My Orders Last 24 Hours: My Active Orders 09/22/17 15:00 Chest 2V [CR] Urgent Enoxaparin [Lovenox] 40 mg SUBCUT Q24H Lactated Ringers [Ringers, Lactated] 1,000 ml IV ASDIRECTED 09/22/17 21:00 Patient's Own Medication [Ptom] 0 each PO BEDTIME 09/23/17 05:00 BASIC METABOLIC PANEL,BMP [CHEM] Timed CBC WITH AUTO DIFF [HEME] Timed MAGNESIUM [CHEM] Timed - Plan Plan:: ASSESSMENT AND PLAN BRONCHITIS-two to three-day history of fever with progressive weakness and shortness of breath. He is also had cough, more productive yesterday, less today. Improved since admission with better appetite and less weakness. No significant temperature elevation since this morning. -Supplemental oxygen as needed -Doxycycline 100 mg IV every 12 hours PARKINSON'S DISEASE -Continue outpatient medical regimen MAINTENANCE ISSUES -DVT prophylaxis; Lovenox 40 mg subcutaneous daily -GI prophylaxis; not indicated -Barger catheter; not indicated -Nutrition; regular diet -Nicotine dependence; not required CODE STATUS-DNR/DNI ADMISSION STATUS-patient will be admitted to inpatient status, expect at least a 2 night hospital stay for evaluation and management of problems as outlined above. At the time of this admission I do not reasonably expected evaluation and management of this problem will require more than a 96 hour hospital stay. DISPOSITION-anticipate discharge to home after the hospital stay. PRIMARY CARE PROVIDER-Dr. Oviedo
[2017-09-22] MEDS: Enoxaparin 40 MG/0.4 ML Syringe SUBCUT SCH (17:11)
[2017-09-22] MEDS: cefTRIAXone 1 GM in Sodium Chloride 0.9% 50 ML IV SCH (18:17)
[2017-09-22] MEDS: Carbidopa/Levodopa 25-100 MG Tab PO SCH ×2 (18:23→21:09)
[2017-09-22] MEDS: NALTREXONE 4.5 MG PO SCH (20:01)
[2017-09-22] MEDS ORDERED: Naltrexone 50 MG Tab PO SCH (21:00)
[2017-09-23] MEDS: Acetaminophen 325 MG Tab PO PRN (02:17)
[2017-09-23] MEDS: Carbidopa/Levodopa 25-100 MG Tab PO SCH ×3 (08:11→17:04)
[2017-09-23] MEDS ORDERED: Magnesium Sulfate/Water 2 GM in Premix Bag 1 BAG IV SCH (08:15)
[2017-09-23] MEDS: hydrALAZINE 10 MG Tab PO SCH ×3 (08:17→20:58)
[2017-09-23] MEDS: Tamsulosin 0.4 MG Cap.ER PO SCH (08:17)
[2017-09-23] MEDS: Finasteride 5 MG Tab PO SCH (08:18)
[2017-09-23] MEDS: Hydrochlorothiazide 25 MG Tab PO SCH (08:18)
[2017-09-23] MEDS: NATURE THROID 65 MG PO SCH (08:19)
[2017-09-23] MEDS: Carbidopa/Levodopa 50-200 MG Tab.ER PO SCH (08:19)
[2017-09-23] MEDS ORDERED: Potassium Chloride 20 MEQ Tab.ER PO ONE (09:00)
[2017-09-23] MEDS: Magnesium Sulfate/Water 2 GM in Premix Bag 1 BAG IV SCH ×2 (09:33→15:10)
[2017-09-23] MEDS: Doxycycline 100 MG in Sodium Chloride 0.9% 100 ML IV SCH ×2 (11:50→22:06)
--- NOTE | 2017-09-23 12:16 | PCM.PN ---
- General Info Date of Service: 09/23/17 Subjective Update: Patient has remained somewhat weak and lethargic since yesterday. Follow-up chest x-ray obtained after hydration shows evidence of a left lower lobe infiltrate. Cultures have remained negative, white blood cell count remains normal, and he has had only low-grade temperature elevations over the past 24 hours. Oral intake of liquids and solids remains relatively poor. - Review of Systems General: Reports: Fever, Weakness Pulmonary: Reports: Cough. Denies: Shortness of Breath, Wheezing Cardiovascular: Reports: Dyspnea on Exertion. Denies: Chest Pain, Palpitations , Orthopnea, PND, Edema Gastrointestinal: Reports: No Symptoms - Patient Data Vitals - Most Recent: Last Vital Signs Temp 98.9 F 09/23/17 10:56 Pulse 67 09/23/17 10:56 Resp 16 09/23/17 10:56 BP 137/72 09/23/17 10:56 Pulse Ox 92 L 09/23/17 10:56 Weight - Most Recent: 183 lb 10.321 oz I&O - Last 24 Hours: Intake & Output 09/22/17 09/23/17 09/23/17 22:59 06:59 14:59 Intake Total 1931 100 570 Output Total 220 Balance 1931 100 350 Lab Results Last 24 Hours: Laboratory Results - last 24 hr 09/23/17 09/23/17 Range/Units 06:11 06:11 WBC 10.2 (4.5-11.0) K/uL RBC 3.97 L (4.30-5.90) M/uL Hgb 12.2 (12.0-15.0) g/dL Hct 36.8 L (40.0-54.0) % MCV 93 (80-98) fL MCH 31 (27-31) pg MCHC 33 (32-36) % Plt Count 161 (150-400) K/uL Neut % (Auto) 74 H (36-66) % Lymph % (Auto) 13 L (24-44) % [place] % (Auto) 11 H (2-6) % Eos % (Auto) 1 L (2-4) % Baso % (Auto) 0 (0-1) % Sodium 144 (140-148) mmol/L Potassium 3.6 (3.6-5.2) mmol/L Chloride 109 H (100-108) mmol/L Carbon Dioxide 28 (21-32) mmol/L Anion Gap 10.6 (5.0-14.0) mmol/L BUN 25 H (7-18) mg/dL Creatinine 1.4 H (0.8-1.3) mg/dL Est Cr Clr Drug Dosing 34.75 mL/min Estimated GFR (MDRD) 48 L (>60) Glucose 98 (74-106) mg/dL Calcium 8.4 L (8.5-10.1) mg/dL Magnesium 1.6 L (1.8-2.4) mg/dL Med Orders - Current: Current Medications Acetaminophen (Tylenol) 650 mg PO Q4H PRN PRN Reason: Pain (Mild 1-3)/fever Last Admin: 09/23/17 02:17 Dose: 650 mg Carbidopa/Levodopa (Sinemet Cr 50-200 Mg) 1 tab PO DAILY [facility] Last Admin: 09/23/17 08:19 Dose: 1 tab Carbidopa/Levodopa (Sinemet 25-100 Mg) 2 tab PO TIDMEALS [facility] Last Admin: 09/23/17 11:53 Dose: 2 tab Enoxaparin Sodium (Lovenox) 40 mg SUBCUT Q24H [facility] Last Admin: 09/22/17 17:11 Dose: 40 mg Finasteride (Proscar) 5 mg PO DAILY [facility] Last Admin: 09/23/17 08:18 Dose: 5 mg Hydralazine HCl (Apresoline) 10 mg PO TID [facility] Last Admin: 09/23/17 08:17 Dose: 10 mg Hydrochlorothiazide (Hydrochlorothiazide) 25 mg PO DAILY [facility] Last Admin: 09/23/17 08:18 Dose: 25 mg Doxycycline Hyclate 100 mg/ (Sodium Chloride) 100 mls @ 100 mls/hr IV Q12H [facility] Last Admin: 09/23/17 11:50 Dose: 100 mls/hr Lactated Ringer's (Ringers, Lactated) 1,000 mls @ 50 mls/hr IV ASDIRECTED [facility] Last Admin: 09/22/17 22:33 Dose: 50 mls/hr Ceftriaxone Sodium 1 gm/ (Sodium Chloride) 50 mls @ 100 mls/hr IV Q24H [facility] Last Admin: 09/22/17 18:17 Dose: 100 mls/hr Magnesium Sulfate 2 gm/ Premix 50 mls @ 25 mls/hr IV Q6H [facility] Stop: 09/23/17 17:59 Last Admin: 09/23/17 09:33 Dose: 25 mls/hr Nystatin (Nystop) 0 gm TOP TID [facility] Naltrexone 4.5mg Cap ((Ptom)) 0 each PO BEDTIME [facility] Last Admin: 09/22/17 20:01 Dose: 1 each Nature Throid 65mg ( (Ptom)) 0 each PO DAILY [facility] Last Admin: 09/23/17 08:19 Dose: 1 each Tamsulosin HCl (Flomax) 0.4 mg PO PCBREAKFAST [facility] Last Admin: 09/23/17 08:17 Dose: 0.4 mg Discontinued Medications Carbidopa/Levodopa (Sinemet 25-100 Mg) 2 tab PO TID [facility] Last Admin: 09/22/17 12:51 Dose: 2 tab Carbidopa/Levodopa (Sinemet 25-100 Mg) 2 tab PO BID@1700,2200 [facility] Stop: 09/22/17 22:01 Last Admin: 09/22/17 21:09 Dose: 2 tab Lactated Ringer's (Ringers, Lactated) 1,000 mls @ 999 mls/hr IV ASDIRECTED [facility] Last Admin: 09/21/17 21:45 Dose: 999 mls/hr Doxycycline Hyclate 100 mg/ (Sodium Chloride) 100 mls @ 100 mls/hr IV ONETIME ONE Stop: 09/22/17 00:09 Last Admin: 09/21/17 23:32 Dose: 100 mls/hr Lactated Ringer's (Ringers, Lactated) 1,000 mls @ 125 mls/hr IV ASDIRECTED [facility] Last Admin: 09/22/17 09:14 Dose: 125 mls/hr Potassium Chloride 20 meq/Lidocaine HCl 2 ml/ Sodium Chloride 112 mls @ 56 mls/ hr IV Q2H [facility] Stop: 09/22/17 13:59 Last Admin: 09/22/17 15:06 Dose: 56 mls/hr Ibuprofen (Motrin) 600 mg PO ONETIME ONE Stop: 09/21/17 21:31 Last Admin: 09/21/17 21:42 Dose: 600 mg Meloxicam (Mobic) 7.5 mg PO BID PRN PRN Reason: gout Potassium Chloride (Klor-Con M20) 40 meq PO ONETIME ONE Stop: 09/22/17 09:31 Last Admin: 09/22/17 09:27 Dose: 40 meq Potassium Chloride (Klor-Con M20) 40 meq PO ONETIME ONE Stop: 09/23/17 09:01 Last Admin: 09/23/17 08:20 Dose: 40 meq Thyroid ([place] Thyroid) 60 mg PO DAILY [facility] Last Admin: 09/22/17 09:26 Dose: 60 mg - Exam Quality Assessment: DVT Prophylaxis General: Mild Distress, Lethargic Lungs: Decreased Breath Sounds, Rales, Rhonchi. No: Crackles, Wheezing Cardiovascular: Regular Rate, Regular Rhythm, No Murmurs GI/Abdominal Exam: Soft, Non-Tender, No Organomegaly, No Distention Extremities: Non-Tender, No Pedal Edema Skin: Warm, Dry, Rash (Groin) - Problem List Review Problem List Initiated/Reviewed/Updated: Yes - My Orders Last 24 Hours: My Active Orders 09/22/17 15:00 Chest 2V [CR] Urgent Lactated Ringers [Ringers, Lactated] 1,000 ml IV ASDIRECTED 09/22/17 16:00 Enoxaparin [Lovenox] 40 mg SUBCUT Q24H 09/22/17 16:30 cefTRIAXone [Rocephin] 1 gm Sodium Chloride 0.9% [Normal Saline] 50 ml IV Q24H 09/22/17 21:00 Patient's Own Medication [Ptom] 0 each PO BEDTIME 09/23/17 10:00 Magnesium Sulfate/Water [Magnesium Sulfate 2 GM in Water 50 ML] 2 gm Premix Bag 1 bag IV Q6H 09/23/17 14:00 Nystatin [Nystop] See Dose Instructions TOP TID 09/24/17 05:00 BASIC METABOLIC PANEL,BMP [CHEM] Timed MAGNESIUM [CHEM] Timed - Plan Plan:: ASSESSMENT AND PLAN LEFT LOWER LOBE PNEUMONIA-blood cultures have remained negative, white blood cell count remains normal. Fever has improved with only low level elevation over the past 24 hours. Remains lethargic with fairly poor oral intake. -Continue IV fluids at 50 mL per hour -Continue doxycycline and Rocephin -Blood cultures pending -Supplemental oxygen as needed PARKINSON'S DISEASE -Continue outpatient medical regimen MAINTENANCE ISSUES -DVT prophylaxis; Lovenox 40 mg subcutaneous daily -GI prophylaxis; not indicated -Barger catheter; not indicated -Nutrition; regular diet -Nicotine dependence; not required CODE STATUS-DNR/DNI ADMISSION STATUS-patient will be admitted to inpatient status, expect at least a 2 night hospital stay for evaluation and management of problems as outlined above. At the time of this admission I do not reasonably expected evaluation and management of this problem will require more than a 96 hour hospital stay. DISPOSITION-anticipate discharge to home after the hospital stay. PRIMARY CARE PROVIDER-Dr. Oviedo
[2017-09-23] MEDS: Nystatin Topical Powder 15 GM Bottle TOP SCH ×2 (15:09→20:59)
[2017-09-23] MEDS: VIT B12 PO SCH (15:10)
[2017-09-23] MEDS: Enoxaparin 40 MG/0.4 ML Syringe SUBCUT SCH (15:10)
[2017-09-23] MEDS: cefTRIAXone 1 GM in Sodium Chloride 0.9% 50 ML IV SCH (17:23)
[2017-09-23] MEDS: NALTREXONE 4.5 MG PO SCH (21:00)
[2017-09-23] MEDS: Lactated Ringers 1,000 ML IV SCH (22:06)
[2017-09-24] MEDS: Carbidopa/Levodopa 25-100 MG Tab PO SCH ×3 (08:44→18:19)
[2017-09-24] MEDS: hydrALAZINE 10 MG Tab PO SCH ×3 (08:44→20:20)
[2017-09-24] MEDS: Finasteride 5 MG Tab PO SCH (08:45)
[2017-09-24] MEDS: NATURE THROID 65 MG PO SCH (08:45)
[2017-09-24] MEDS: Hydrochlorothiazide 25 MG Tab PO SCH (08:45)
[2017-09-24] MEDS: Nystatin Topical Powder 15 GM Bottle TOP SCH ×3 (08:45→20:21)
[2017-09-24] MEDS: Tamsulosin 0.4 MG Cap.ER PO SCH (08:45)
[2017-09-24] MEDS: Carbidopa/Levodopa 50-200 MG Tab.ER PO SCH (08:46)
--- NOTE | 2017-09-24 08:51 | CR ---
Chest 2V HISTORY: fever COMPARISON: 01/23/2017 FINDINGS: No acute infiltrate is identified. Azygos lobe at the right apex is a normal variant. Cardiomediastin al silhouette is within normal limits. Atherosclerotic aorta is redemonstrated. No vascular redistrib ution or pleural fluid can be seen. Bony structures and soft tissues are unremarkable. IMPRESSION: No acute chest abnormality is identified.
--- NOTE | 2017-09-24 08:58 | HP ---
HISTORY OF PRESENT ILLNESS: This is an 87-year-old with Parkinson's. Apparently, his was ill with bronchitis recently. He started having productive cough and getting weaker, was brought into the emergency room for further evaluation. He was evaluated by Dr. Moralesr, Emergency Room physician. No definite pneumonia was seen on chest x-ray. It looks like bronchitis. He has been running a fever and weak, unable to send him home, and I was asked to admit the patient for further evaluation and treatment. The patient states he really does not have a lot of pain, but just now started having some discomfort in the right upper back. No trauma reported. PAST MEDICAL HISTORY: History of hypothyroidism, BPH, Parkinson's, recently diagnosed with bronchitis today by his regular physician, Dr. Oviedo, given doxycycline, but only had received one oral dose. MEDICATIONS: Carbidopa/levodopa extended release 50/200 daily and 25/100 two tablets t.i.d., finasteride 5 mg daily, Focus two capsules b.i.d., hydralazine 10 mg t.i.d., hydrochlorothiazide 25 mg daily, meloxicam 7.5 mg b.i.d., Naltrexone 50 mg tablets, tamsulosin 0.4 mg daily, Nature Thyroid 65 mg daily, vitamin B12, vitamin D. ALLERGIES: EPHEDRINE, LISINOPRIL, TRAMADOL, HYDROCODONE, OXYCODONE, PENICILLINS. SOCIAL HISTORY: No report of any recent tobacco. FAMILY HISTORY: Unknown. REVIEW OF SYSTEMS: Denies chest pain. Does feel short of breath with cough, which has been productive. No abdominal pain. No nausea, vomiting, diarrhea, or constipation. No urinary problems reported. No swelling in his legs. No neurologic complaints, other than his Parkinson's and weakness. OBJECTIVE: VITAL SIGNS: Temp 38.4, now 37.7, pulse 84, blood pressure 159/82, O2 saturation 94% on room air. GENERAL: The patient seems to be fairly alert and oriented, but does appear to be weak. He does have some discoloration material around his mouth, and I was wondering if he vomited, but he denied at this. HEENT: Dry mucous membranes in his mouth, but otherwise unremarkable. NECK: Supple. No adenopathy, thyromegaly, JVD, or carotid bruits. LUNGS: Clear. HEART: Regular without murmurs. ABDOMEN: Soft, nontender. No mass or organomegaly palpated. MUSCULOSKELETAL: Unable to reproduce any pain with palpation of his right shoulder or upper back, but he complained of pain. EXTREMITIES: No significant edema. SKIN: Negative. NEURO: Cranial nerves 2-12 are grossly intact. He is generally weak. DIAGNOSTIC STUDIES: Chest x-ray, no definite pneumonia. Labs, white count 10.7, hemoglobin 13.7, platelets 152,000 with 79% neutrophils, 9% lymphocytes. Sodium 143, potassium 3.8, chloride of 105, BUN 32, creatinine 1.5, glucose 118. Liver functions were normal. C-reactive protein was elevated at 7.02. Urinalysis was unremarkable. ASSESSMENT: 1. Fever with probable bronchitis, there is no definite pneumonia seen and increasing weakness, unable to send him home. Anticipate more than two midnight stays, admit him under inpatient status. We will transfer his care to the hospitalist service in the morning. The patient has been started on IV doxycycline by the emergency room physician, which we will continue for his bronchitis and fever. 2. Underlying Parkinson's disease, which has progressed. 3. Benign prostatic hyperplasia. 4. Essential hypertension. 5. Hypothyroidism. Prince Bishop MD /[id number]
[2017-09-24] MEDS ORDERED: Oseltamivir 75 MG Cap PO SCH (09:00)
--- NOTE | 2017-09-24 09:12 | CR ---
Chest 2V HISTORY: Fever, dyspnea, follow-up after hydration COMPARISON: 09/21/2017 FINDINGS: Lungs appear clear and mildly hyperinflated. Azygos lobe at the right apex is a normal variant. There is mild atherosclerotic calcification in the aortic arch. Cardiomediastinal silhouette is within nor mal limits. No vascular redistribution or pleural fluid can be seen. Diffuse degenerative and hypertr ophic changes are noted along the thoracic spine. IMPRESSION: Mild hyperinflation. No acute chest abnormality or significant interval change compared to yesterday' s exam.
[2017-09-24] MEDS: Doxycycline 100 MG in Sodium Chloride 0.9% 100 ML IV SCH (10:51)
[2017-09-24] MEDS: VIT B12 PO SCH (11:41)
--- NOTE | 2017-09-24 12:15 | PCM.PN ---
- General Info Date of Service: 09/24/17 Functional Status: Reports: Pain Controlled, Tolerating Diet - Review of Systems General: Reports: Fever, Weakness Pulmonary: Reports: Shortness of Breath, Cough Systems Review Comment:: patient did have a fever last night but otherwise there were no acute events. Symptomatically he feels a little better today but is still coughing and short of breath with activity. He has not required supplemental oxygen. Appetite is slowly improving. No complaints of chest pain or abdominal pain. - Patient Data Vitals - Most Recent: Last Vital Signs Temp 37.2 C 09/24/17 10:40 Pulse 69 09/24/17 10:40 Resp 20 09/24/17 10:40 BP 149/75 H 09/24/17 10:40 Pulse Ox 92 L 09/24/17 10:40 Weight - Most Recent: 83.3 kg I&O - Last 24 Hours: Intake & Output 09/23/17 09/24/17 09/24/17 22:59 06:59 14:59 Intake Total 1176 564 460 Output Total 475 300 Balance 701 264 460 Lab Results Last 24 Hours: Laboratory Results - last 24 hr 09/24/17 Range/Units 05:45 Sodium 144 (140-148) mmol/L Potassium 3.8 (3.6-5.2) mmol/L Chloride 108 (100-108) mmol/L Carbon Dioxide 30 (21-32) mmol/L Anion Gap 6.3 (5.0-14.0) mmol/L BUN 22 H (7-18) mg/dL Creatinine 1.3 (0.8-1.3) mg/dL Est Cr Clr Drug Dosing 37.43 mL/min Estimated GFR (MDRD) 52 L (>60) Glucose 98 (74-106) mg/dL Calcium 8.5 (8.5-10.1) mg/dL Magnesium 1.9 (1.8-2.4) mg/dL Med Orders - Current: Current Medications Acetaminophen (Tylenol) 650 mg PO Q4H PRN PRN Reason: Pain (Mild 1-3)/fever Last Admin: 09/23/17 02:17 Dose: 650 mg Carbidopa/Levodopa (Sinemet Cr 50-200 Mg) 1 tab PO DAILY [facility] Last Admin: 09/24/17 08:46 Dose: 1 tab Carbidopa/Levodopa (Sinemet 25-100 Mg) 2 tab PO TIDMEALS [facility] Last Admin: 09/24/17 11:41 Dose: 2 tab Enoxaparin Sodium (Lovenox) 40 mg SUBCUT Q24H [facility] Last Admin: 09/23/17 15:10 Dose: 40 mg Finasteride (Proscar) 5 mg PO DAILY [facility] Last Admin: 09/24/17 08:45 Dose: 5 mg Hydralazine HCl (Apresoline) 10 mg PO TID [facility] Last Admin: 09/24/17 08:44 Dose: 10 mg Hydrochlorothiazide (Hydrochlorothiazide) 25 mg PO DAILY [facility] Last Admin: 09/24/17 08:45 Dose: 25 mg Ceftriaxone Sodium 1 gm/ (Sodium Chloride) 50 mls @ 100 mls/hr IV Q24H [facility] Last Admin: 09/23/17 17:23 Dose: 100 mls/hr Melatonin (Melatonin) 9 mg PO BEDTIME [facility] Nystatin (Nystop) 0 gm TOP TID [facility] Last Admin: 09/24/17 08:45 Dose: 1 applic Naltrexone 4.5mg Cap ((Ptom)) 0 each PO BEDTIME [facility] Last Admin: 09/23/17 21:00 Dose: 1 each Nature Throid 65mg ( (Ptom)) 0 each PO DAILY [facility] Last Admin: 09/24/17 08:45 Dose: 1 each Vit B12 (Co-Enzyme (Form) Tab --Ptom) 1 each PO DAILY@1200 [facility] Last Admin: 09/24/17 11:41 Dose: 1 each Tamsulosin HCl (Flomax) 0.4 mg PO PCBREAKFAST [facility] Last Admin: 09/24/17 08:45 Dose: 0.4 mg Discontinued Medications Carbidopa/Levodopa (Sinemet 25-100 Mg) 2 tab PO TID [facility] Last Admin: 09/22/17 12:51 Dose: 2 tab Carbidopa/Levodopa (Sinemet 25-100 Mg) 2 tab PO BID@1700,2200 [facility] Stop: 09/22/17 22:01 Last Admin: 09/22/17 21:09 Dose: 2 tab Lactated Ringer's (Ringers, Lactated) 1,000 mls @ 999 mls/hr IV ASDIRECTED [facility] Last Admin: 09/21/17 21:45 Dose: 999 mls/hr Doxycycline Hyclate 100 mg/ (Sodium Chloride) 100 mls @ 100 mls/hr IV ONETIME ONE Stop: 09/22/17 00:09 Last Admin: 09/21/17 23:32 Dose: 100 mls/hr Lactated Ringer's (Ringers, Lactated) 1,000 mls @ 125 mls/hr IV ASDIRECTED [facility] Last Admin: 09/22/17 09:14 Dose: 125 mls/hr Doxycycline Hyclate 100 mg/ (Sodium Chloride) 100 mls @ 100 mls/hr IV Q12H [facility] Last Admin: 09/24/17 10:51 Dose: 100 mls/hr Potassium Chloride 20 meq/Lidocaine HCl 2 ml/ Sodium Chloride 112 mls @ 56 mls/ hr IV Q2H [facility] Stop: 09/22/17 13:59 Last Admin: 09/22/17 15:06 Dose: 56 mls/hr Lactated Ringer's (Ringers, Lactated) 1,000 mls @ 50 mls/hr IV ASDIRECTED [facility] Last Admin: 09/23/17 22:06 Dose: 50 mls/hr Magnesium Sulfate 2 gm/ Premix 50 mls @ 25 mls/hr IV Q6H [facility] Stop: 09/23/17 17:59 Last Admin: 09/23/17 15:10 Dose: 25 mls/hr Ibuprofen (Motrin) 600 mg PO ONETIME ONE Stop: 09/21/17 21:31 Last Admin: 09/21/17 21:42 Dose: 600 mg Meloxicam (Mobic) 7.5 mg PO BID PRN PRN Reason: gout Oseltamivir Phosphate (Tamiflu) 75 mg PO BID [facility] Last Admin: 09/24/17 09:49 Dose: 75 mg Potassium Chloride (Klor-Con M20) 40 meq PO ONETIME ONE Stop: 09/22/17 09:31 Last Admin: 09/22/17 09:27 Dose: 40 meq Potassium Chloride (Klor-Con M20) 40 meq PO ONETIME ONE Stop: 09/23/17 09:01 Last Admin: 09/23/17 08:20 Dose: 40 meq Thyroid ([place] Thyroid) 60 mg PO DAILY [facility] Last Admin: 09/22/17 09:26 Dose: 60 mg - Exam Quality Assessment: No: Supplemental Oxygen General: Alert, Oriented, Cooperative, No Acute Distress Lungs: Normal Respiratory Effort, Rhonchi (mild diffuse). No: Wheezing Cardiovascular: Regular Rate, Regular Rhythm GI/Abdominal Exam: Soft, No Distention Extremities: No Pedal Edema Psy/Mental Status: Alert, Normal Affect - Problem List Review Problem List Initiated/Reviewed/Updated: Yes - My Orders Last 24 Hours: My Active Orders 09/24/17 12:13 Oseltamivir [Tamiflu] 30 mg PO BID Convert IV to Saline Lock [OM.PC] Routine 09/24/17 21:00 Doxycycline [Vibramycin] 100 mg PO BID Melatonin 9 mg PO BEDTIME 09/25/17 05:00 BASIC METABOLIC PANEL,BMP [CHEM] Timed CBC W/O DIFF,HEMOGRAM [HEME] Timed (1) - Plan Plan:: ASSESSMENT AND PLAN acute bronchitis with hypoxic respiratory failure - slowly improving.cultures negative. White count normal. With persistent fevers influenza is a possibility despite a negative test. not currently requiring supplemental oxygen. -saline lock IV -Continue doxycycline and Rocephin -Tamiflu -Blood cultures pending -Supplemental oxygen as needed PARKINSON'S DISEASE - stable but this chronic disease will likely slow down his recovery. -Continue outpatient medical regimen Stage III chronic kidney disease - kidney function slowly improving during the hospital stay. MAINTENANCE ISSUES -DVT prophylaxis; Lovenox 40 mg subcutaneous daily -GI prophylaxis; not indicated -Barger catheter; not indicated -Nutrition; regular diet DISPOSITION - anticipate discharge to home with home care versus subacute rehabilitation in detention after the hospital stay. Dominic Mnédez M.D.
[2017-09-24] MEDS: Enoxaparin 40 MG/0.4 ML Syringe SUBCUT SCH (16:53)
[2017-09-24] MEDS: cefTRIAXone 1 GM in Sodium Chloride 0.9% 50 ML IV SCH (16:54)
[2017-09-24] MEDS: NALTREXONE 4.5 MG PO SCH (20:21)
[2017-09-24] MEDS: Doxycycline 100 MG Cap PO SCH (20:22)
[2017-09-24] MEDS: Oseltamivir 30 MG Cap PO SCH (20:22)
[2017-09-24] MEDS ORDERED: Melatonin 3 MG Tab PO SCH (21:00)
[2017-09-25] MEDS: Carbidopa/Levodopa 25-100 MG Tab PO SCH ×2 (07:59→13:01)
[2017-09-25] MEDS: Tamsulosin 0.4 MG Cap.ER PO SCH (08:01)
[2017-09-25] MEDS: Hydrochlorothiazide 25 MG Tab PO SCH (08:01)
[2017-09-25] MEDS: Nystatin Topical Powder 15 GM Bottle TOP SCH ×2 (08:02→13:00)
[2017-09-25] MEDS: Finasteride 5 MG Tab PO SCH (08:03)
[2017-09-25] MEDS: NATURE THROID 65 MG PO SCH (08:03)
[2017-09-25] MEDS: Doxycycline 100 MG Cap PO SCH (08:04)
[2017-09-25] MEDS: Oseltamivir 30 MG Cap PO SCH (08:04)
[2017-09-25] MEDS: hydrALAZINE 10 MG Tab PO SCH ×2 (08:04→13:00)
[2017-09-25] MEDS: Carbidopa/Levodopa 50-200 MG Tab.ER PO SCH (08:04)
[2017-09-25 11:12] VITALS: BP 104/50
--- NOTE | 2017-09-25 12:31 | PCM.DCSUM1 ---
Discharge Summary - Hospital Course Brief History: 87-year-old male with history of Parkinson's disease who presented with fever, cough and shortness of breath. He was admitted for management of presumed acute bronchitis with hypoxic respiratory failure. - Discharge Data Discharge Date: 09/25/17 Discharge Disposition: DC/Tfer to SNF 03 Condition: Fair - Discharge Diagnosis/Problem(s) (1) Bronchitis SNOMED Code(s): 78168231 ICD Code: J40 - BRONCHITIS, NOT SPECIFIED ACUTE OR CHRONIC Status: Acute Current Visit: Yes (2) Generalized weakness SNOMED Code(s): 51165945 ICD Code: R53.1 - WEAKNESS Status: Acute Priority: High Current Visit: Yes (3) CKD (chronic kidney disease) stage 3, GFR 30-59 ml/min SNOMED Code(s): 219481131 ICD Code: N18.3 - CHRONIC KIDNEY DISEASE, STAGE 3 (MODERATE) Status: Chronic Current Visit: No (4) Parkinsons disease SNOMED Code(s): 00908204 ICD Code: G20 - PARKINSON'S DISEASE Status: Chronic Priority: Medium Current Visit: No - Patient Summary/Data Consults: Consultations 09/24/17 07:50 PT Evaluation and Treatment [CONS] Routine Please Evaluate and Treat. PT Reason for Consult: Strengthening Pending Discharge: home Special Instructions: weakness This query below is only for informational purposes and is not editable. Admission Diagnosis/Problem: Fever Hospital Course: Reynaldo presented to the emergency room with progressive cough, shortness of breath and weakness. Workup in the emergency room revealed a normal chest x-ray but he was febrile and hypoxic on room air. Influenza testing was negative. Cultures were obtained and he was admitted to the hospital and appear can batting therapy. Presumptive diagnosis at the time of admission was acute bronchitis. Overnight following admission there were no acute issues in the next morning he was feeling a little bit better but remained hypoxic. He continued to have episodes of fever throughout the next 24 hours and ceftriaxone was added to the antibiotic regimen. Fortunately he did show some ongoing clinical improvement though he continued to have fevers as well as shortness of breath and cough. Repeat chest x-ray did not show any definite infiltrate. After 3 days of persistent but intermittent fever I elected to add Tamiflu despite his negative influenza testing. History was compatible with influenza and he had a sick contact with similar symptoms. Once the Tamiflu was initiated his fevers resolved. He had ongoing but slow clinical improvement. Given his acute generalized weakness due to the respiratory infection complicating his Parkinson's disease think he would benefit from alf placement for subacute rehabilitation. The plan is for discharge to the alf for some physical and occupational therapy before he goes home. He does not require supplemental oxygen at this time. He he would benefit from 3 to have additional days of both antibiotic and Tamiflu therapy because I could not definitively say that he had bacterial bronchitis or influenza. He is safe for hospital discharge and outpatient management at this time. - Patient Instructions Diet: Regular Diet as Tolerated Activity: As Tolerated Showering/Bathing: May Shower Notify Provider of: Fever, Increased Pain, Nausea and/or Vomiting Other/Special Instructions: 1. You were in the hospital for management of acute bronchitis. It was not entirely clear if this was caused by a bacteria or a virus. Despite the negative testing I am suspicious enough of influenza that I recommend to complete the five-day course of Tamiflu. I do also recommend that you complete a course of doxycycline because we are not completely sure at this was not a bacteria. Dosing and dose timing are outlined below. -Doxycycline 100 mg capsules - take 1 capsule twice daily for 7 doses. Your next dose is due tonight. -Tamiflu 30 mg capsule - take 1 capsule twice daily for 7 doses. Your next dose is due tonight. 2. Continue your other home medications as previously prescribed. 3. Referral to physical and occupational therapy for strengthening in the setting of acute generalized weakness following acute illness. 4. CODE STATUS is DO NOT RESUSCITATE and DO NOT INTUBATE. 5. Follow- up with your [facility] care at [facility] as scheduled on October 04. 6. Please seek medical attention if you develop fever greater than 101, have sudden onset of shortness of breath or if you develop chest pain/pressure. - Discharge Plan Prescriptions/Med Rec: Acetaminophen [Tylenol] 650 mg PO Q4H PRN #100 tablet PRN Reason: Pain (Mild 1-3)/fever Doxycycline Calcium [IMW: Doxycycline] 100 mg PO BID #7 capsule Oseltamivir [Tamiflu] 30 mg PO BID #7 cap Home Medications: Home Meds Meloxicam [Mobic] 7.5 mg PO BID PRN 08/25/14 [History] Carbidopa/Levodopa [Carbidopa-Levo ER 50-200] 1 tab PO DAILY 12/30/15 [History] Carbidopa/Levodopa [Carbidopa-Levodopa 25-100 Tab] 2 tab PO TID 12/30/15 [ History] Hydrochlorothiazide 25 mg PO DAILY 12/30/15 [History] Thyroid,Pork [Nature-Throid] 65 mg PO DAILY 12/30/15 [History] Finasteride [Proscar] 5 mg PO DAILY 02/26/16 [History] Naltrexone 4.5 mg PO BEDTIME 02/26/16 [History] Tamsulosin [Flomax] 0.4 mg PO PCBREAKFAST #30 cap.er 02/29/16 [Rx] Vit B12/Lmefolate Ca/Vit B6/B2 [l-Methyl-Mc Tablet] 1 each PO DAILY 04/25/16 [ History] Vitamin D3/Vitamin K2 [D3 + K2 Dots 1,000 Unit] 1 tab PO DAILY 01/23/17 [History ] hydrALAZINE [Apresoline] 10 mg PO TID #90 tablet 01/27/17 [Rx] Focus 2 cap PO BID 09/21/17 [History] Doxycycline Monohydrate 100 mg PO BID 09/22/17 [History] Acetaminophen [Tylenol] 650 mg PO Q4H PRN #100 tablet 09/25/17 [Rx] Doxycycline Calcium [IMW: Doxycycline] 100 mg PO BID #7 capsule 09/25/17 [Rx] Oseltamivir [Tamiflu] 30 mg PO BID #7 cap 09/25/17 [Rx] Patient Handouts: Doxycycline tablets or capsules, Acute Bronchitis, Adult Referrals: PCP,None [Primary Care Provider] - (follow-up with your primary care at the [facility] as scheduled on October 04) - Discharge Summary/Plan Comment DC Time >30 min.: Yes (40 - new alf discharge) - Patient Data Vitals - Most Recent: Last Vital Signs Temp 36.7 C 09/25/17 11:09 Pulse 70 09/25/17 11:09 Resp 16 09/25/17 11:09 BP 104/50 L 09/25/17 11:09 Pulse Ox 90 L 09/25/17 11:09 Weight - Most Recent: 83.3 kg I&O - Last 24 hours: Intake & Output 09/24/17 09/25/17 09/25/17 22:59 06:59 14:59 Intake Total 290 240 600 Output Total 150 Balance 140 240 600 Lab Results - Last 24 hrs: Laboratory Results - last 24 hr 09/25/17 09/25/17 Range/Units 05:05 05:05 WBC 9.3 (4.5-11.0) K/uL RBC 4.02 L (4.30-5.90) M/uL Hgb 11.9 L (12.0-15.0) g/dL Hct 37.0 L (40.0-54.0) % MCV 92 (80-98) fL MCH 30 (27-31) pg MCHC 32 (32-36) % Plt Count 167 (150-400) K/uL Sodium 144 (140-148) mmol/L Potassium 3.7 (3.6-5.2) mmol/L Chloride 106 (100-108) mmol/L Carbon Dioxide 31 (21-32) mmol/L Anion Gap 7.2 (5.0-14.0) mmol/L BUN 21 H (7-18) mg/dL Creatinine 1.3 (0.8-1.3) mg/dL Est Cr Clr Drug Dosing 37.34 mL/min Estimated GFR (MDRD) 52 L (>60) Glucose 98 (74-106) mg/dL Calcium 8.3 L (8.5-10.1) mg/dL Med Orders - Current: Current Medications Acetaminophen (Tylenol) 650 mg PO Q4H PRN PRN Reason: Pain (Mild 1-3)/fever Last Admin: 09/23/17 02:17 Dose: 650 mg Carbidopa/Levodopa (Sinemet Cr 50-200 Mg) 1 tab PO DAILY [facility] Last Admin: 09/25/17 08:04 Dose: 1 tab Carbidopa/Levodopa (Sinemet 25-100 Mg) 2 tab PO TIDMEALS [facility] Last Admin: 09/25/17 07:59 Dose: 2 tab Doxycycline Hyclate (Vibramycin) 100 mg PO BID [facility] Last Admin: 09/25/17 08:04 Dose: 100 mg Enoxaparin Sodium (Lovenox) 40 mg SUBCUT Q24H [facility] Last Admin: 09/24/17 16:53 Dose: 40 mg Finasteride (Proscar) 5 mg PO DAILY [facility] Last Admin: 09/25/17 08:03 Dose: 5 mg Hydralazine HCl (Apresoline) 10 mg PO TID [facility] Last Admin: 09/25/17 08:04 Dose: 10 mg Hydrochlorothiazide (Hydrochlorothiazide) 25 mg PO DAILY [facility] Last Admin: 09/25/17 08:01 Dose: 25 mg Ceftriaxone Sodium 1 gm/ (Sodium Chloride) 50 mls @ 100 mls/hr IV Q24H [facility] Last Admin: 09/24/17 16:54 Dose: 100 mls/hr Melatonin (Melatonin) 9 mg PO BEDTIME [facility] Last Admin: 09/24/17 20:19 Dose: 9 mg Nystatin (Nystop) 0 gm TOP TID [facility] Last Admin: 09/25/17 08:02 Dose: 1 applic Oseltamivir Phosphate (Tamiflu) 30 mg PO BID [facility] Last Admin: 09/25/17 08:04 Dose: 30 mg Naltrexone 4.5mg Cap ((Ptom)) 0 each PO BEDTIME [facility] Last Admin: 09/24/17 20:21 Dose: 1 each Nature Throid 65mg ( (Ptom)) 0 each PO DAILY [facility] Last Admin: 09/25/17 08:03 Dose: 1 each Vit B12 (Co-Enzyme (Form) Tab --Ptom) 1 each PO DAILY@1200 [facility] Last Admin: 09/24/17 11:41 Dose: 1 each Tamsulosin HCl (Flomax) 0.4 mg PO PCBREAKFAST [facility] Last Admin: 09/25/17 08:01 Dose: 0.4 mg Discontinued Medications Carbidopa/Levodopa (Sinemet 25-100 Mg) 2 tab PO TID [facility] Last Admin: 09/22/17 12:51 Dose: 2 tab Carbidopa/Levodopa (Sinemet 25-100 Mg) 2 tab PO BID@1700,2200 [facility] Stop: 09/22/17 22:01 Last Admin: 09/22/17 21:09 Dose: 2 tab Lactated Ringer's (Ringers, Lactated) 1,000 mls @ 999 mls/hr IV ASDIRECTED [facility] Last Admin: 09/21/17 21:45 Dose: 999 mls/hr Doxycycline Hyclate 100 mg/ (Sodium Chloride) 100 mls @ 100 mls/hr IV ONETIME ONE Stop: 09/22/17 00:09 Last Admin: 09/21/17 23:32 Dose: 100 mls/hr Lactated Ringer's (Ringers, Lactated) 1,000 mls @ 125 mls/hr IV ASDIRECTED [facility] Last Admin: 09/22/17 09:14 Dose: 125 mls/hr Doxycycline Hyclate 100 mg/ (Sodium Chloride) 100 mls @ 100 mls/hr IV Q12H [facility] Last Admin: 09/24/17 10:51 Dose: 100 mls/hr Potassium Chloride 20 meq/Lidocaine HCl 2 ml/ Sodium Chloride 112 mls @ 56 mls/ hr IV Q2H [facility] Stop: 09/22/17 13:59 Last Admin: 09/22/17 15:06 Dose: 56 mls/hr Lactated Ringer's (Ringers, Lactated) 1,000 mls @ 50 mls/hr IV ASDIRECTED [facility] Last Admin: 09/23/17 22:06 Dose: 50 mls/hr Magnesium Sulfate 2 gm/ Premix 50 mls @ 25 mls/hr IV Q6H [facility] Stop: 09/23/17 17:59 Last Admin: 09/23/17 15:10 Dose: 25 mls/hr Ibuprofen (Motrin) 600 mg PO ONETIME ONE Stop: 09/21/17 21:31 Last Admin: 09/21/17 21:42 Dose: 600 mg Meloxicam (Mobic) 7.5 mg PO BID PRN PRN Reason: gout Oseltamivir Phosphate (Tamiflu) 75 mg PO BID [facility] Last Admin: 09/24/17 09:49 Dose: 75 mg Potassium Chloride (Klor-Con M20) 40 meq PO ONETIME ONE Stop: 09/22/17 09:31 Last Admin: 09/22/17 09:27 Dose: 40 meq Potassium Chloride (Klor-Con M20) 40 meq PO ONETIME ONE Stop: 09/23/17 09:01 Last Admin: 09/23/17 08:20 Dose: 40 meq Thyroid ([place] Thyroid) 60 mg PO DAILY [facility] Last Admin: 09/22/17 09:26 Dose: 60 mg - Exam Quality Assessment: Denies: Supplemental Oxygen General: Reports: Alert, Oriented, Cooperative, No Acute Distress Neck: Reports: Supple Lungs: Reports: Normal Respiratory Effort Cardiovascular: Reports: Regular Rate, Regular Rhythm GI/Abdominal Exam: No Distention Extremities: No Pedal Edema Skin: Reports: Warm, Dry Psy/Mental Status: Reports: Alert, Normal Affect *Q Meaningful Use (DIS) - VTE *Q VTE Criteria *Q: - Stroke *Q Stroke Criteria *Q: - AMI *Q AMI Criteria *Q:
[2017-09-25] MEDS: VIT B12 PO SCH (13:00)
== END 2017-09-25 14:34 | DRG 202 ==
LOC: JP.ED 20:36 → JP.MS 23:55
PROVIDERS: ADMIT Family Medicine; ATTEND Hospitalist
DX: J20.9 Acute bronchitis, unspecified (principal); J96.91 Respiratory failure, unspecified with hypoxia; N18.4 Chronic kidney disease, stage 4 (severe); N18.3 Chronic kidney disease, stage 3 (moderate); I12.9 Hypertensive chronic kidney disease with stage 1 through stage 4 chronic kidney disease, or unspecified chronic kidney disease; J11.1 Influenza due to unidentified influenza virus with other respiratory manifestations; E03.9 Hypothyroidism, unspecified; G20 Parkinson's disease; R53.1 Weakness; R50.9 Fever, unspecified; R05 Cough; Z66 Do not resuscitate; N40.0 Benign prostatic hyperplasia without lower urinary tract symptoms; H35.30 Unspecified macular degeneration; H54.7 Unspecified visual loss; Z96.659 Presence of unspecified artificial knee joint; Z88.5 Allergy status to narcotic agent; Z88.0 Allergy status to penicillin; Z88.8 Allergy status to other drugs, medicaments and biological substances
CPT/HCPCS: 36415; 71046 ×2; 80053; 81001; 83605; 85025; 86140; 87040 ×2; 87804 ×2; 96361; 96365; 99285; A9270; J7030; J7120; 80048; 83735; 85027; 96366; 97110-GP; 97162-GP; 97530-GP; 97535-GP; J0696; J1650; J3475; J3480; J7050

== ENCOUNTER 2019-01-08 22:11 | Inpatient (IN) | payer MEDICARE, BC ==
[2019-01-08] MEDS ORDERED: Sodium Chloride 0.9% 10 ML Syringe FLUSH PRN (22:47)
[2019-01-08] MEDS ORDERED: Albuterol 0.083% 2.5 MG/3 ML Neb Soln NEB ONE (22:48)
[2019-01-08] MEDS ORDERED: methylPREDNISolone Sodium Succinate 125 MG/2 ML SDV IVPUSH ONE (22:48)
[2019-01-08] MEDS ORDERED: cefTRIAXone 1 GM in Sodium Chloride 0.9% 50 ML IV ONE (22:56)
[2019-01-08] MEDS ORDERED: Doxycycline 100 MG in Sodium Chloride 0.9% 100 ML IV ONE (22:57)
--- NOTE | 2019-01-08 23:28 | CRLCR ---
INDICATION: Pain TECHNIQUE: Chest 1 views COMPARISON: Chest x-ray 09/22/2017 FINDINGS: Cardiovascular and mediastinum: Cardiomegaly with atherosclerotic calcification. Mild pulmonary cephalization. Lungs and pleural spaces: Small right pleural effusion with bibasilar airspace disease. Bones and soft tissues: No significant findings. IMPRESSION: Cardiomegaly with pulmonary cephalization and small right pleural effusion with bibasilar airspace disease, likely atelectasis. Dictated by Reji Luna MD @ Jan 08 2019 11:23PM Signed by Dr. Reji Luna @ Jan 08 2019 11:27PM
--- NOTE | 2019-01-09 00:09 | EDM.PDOC ---
ED HPI GENERAL MEDICAL PROBLEM - General Chief Complaint: Respiratory Problem Stated Complaint: MEDICAL VIA [facility] Time Seen by Provider: 01/08/19 22:45 Source of Information: Reports: Patient, Family History Limitations: Reports: Physical Impairment - History of Present Illness INITIAL COMMENTS - FREE TEXT/NARRATIVE: This gentleman comes in for bronchitis symptoms. He said he's been sick for the past 3 months with a lot of coughing and so forth but apparently has gotten worse over the past few days. His said he's been coughing up green stuff. And has had a low-grade fever at home. EMS noted a temp of about 99.[address] in. He received a DuoNeb treatment in route to the hospital. He was treated at our facility for acute bronchitis a little over a year ago. - Related Data Allergies Allergy/AdvReac Type Severity Reaction Status Date / Time ephedrine Allergy Other Verified 05/08/17 13:50 lisinopril Allergy Other Verified 05/08/17 13:50 tramadol Allergy Other Verified 05/08/17 13:50 hydrocodone AdvReac Confusion Verified 05/08/17 13:50 oxycodone AdvReac Confusion Verified 05/08/17 13:50 Penicillins AdvReac Rash Verified 05/08/17 13:50 Home Meds: Home Meds Meloxicam [Mobic] 7.5 mg PO BID PRN 08/25/14 [History] Carbidopa/Levodopa [Carbidopa-Levo ER 50-200] 1 tab PO DAILY 12/30/15 [History] Carbidopa/Levodopa [Carbidopa-Levodopa 25-100 Tab] 2.5 tab PO TID 12/30/15 [ History] Thyroid,Pork [Nature-Throid] 65 mg PO DAILY 12/30/15 [History] Finasteride [Proscar] 5 mg PO DAILY 02/26/16 [History] Tamsulosin [Flomax] 0.4 mg PO PCBREAKFAST #30 cap.er 02/29/16 [Rx] Vit B12/Lmefolate Ca/Vit B6/B2 [l-Methyl-Mc Tablet] 1 each PO DAILY 04/25/16 [ History] Vitamin D3/Vitamin K2 [D3 + K2 Dots 1,000 Unit] 1 tab PO DAILY 01/23/17 [History ] Focus 2 cap PO BID 09/21/17 [History] Acetaminophen [Tylenol] 650 mg PO Q4H PRN #100 tablet 09/25/17 [Rx] Losartan/Hydrochlorothiazide [Losartan-HCTZ 50-12.5 MG] 1 each PO DAILY [History] Propylene Glycol/PEG 400/Pf [Systane Ultra 0.4-0.3% Eye Drp] 1 each OP BID 01/08 [History] Past Medical History HEENT History: Reports: Cataract, Impaired Vision, Macular Degeneration Cardiovascular History: Reports: Hypertension, Other (See Below) Other Cardiovascular History: PVC's Gastrointestinal History: Reports: Chronic Constipation Genitourinary History: Reports: Prostate Disorder, Renal Calculus, Renal Disease , Urinary Incontinence, Other (See Below) Other Genitourinary History: Urinary frequency Musculoskeletal History: Reports: Fracture, Gout Neurological History: Reports: Parkinson's Endocrine/Metabolic History: Reports: Hypothyroidism - Infectious Disease History Infectious Disease History: Reports: Measles - Past Surgical History HEENT Surgical History: Reports: Cataract Surgery Musculoskeletal Surgical History: Reports: Knee Replacement Social & Family History - Family History Family Medical History: Noncontributory - Tobacco Use Smoking Status *Q: Never Smoker - Caffeine Use Caffeine Use: Reports: Coffee - Recreational Drug Use Recreational Drug Use: No - Living Situation & Occupation Living situation: Reports: Occupation: Retired ED ROS GENERAL - Review of Systems Review Of Systems: ROS reveals no pertinent complaints other than HPI. ED EXAM, GENERAL - Physical Exam Exam: See Below Exam Limited By: No Limitations General Appearance: Alert, Mild Distress Eye Exam: Bilateral Eye: Normal Inspection Throat/Mouth: Normal Inspection Neck: Normal Inspection Respiratory/Chest: No Respiratory Distress, Rhonchi (Heavy rhonchi in all oropeza ) Cardiovascular: Normal Peripheral Pulses, Regular Rate, Rhythm, No Murmur GI/Abdominal: Soft, Non-Tender Back Exam: Normal Inspection Extremities: Normal Inspection Neurological: Alert, Oriented, CN II-XII Intact, Normal Cognition Psychiatric: Normal Affect Skin Exam: Warm, Dry Course - Vital Signs Last Recorded V/S: Last Vital Signs Temp 36.3 C 01/08/19 22:26 Pulse 70 01/08/19 23:07 Resp 22 H 01/08/19 23:07 BP 156/69 H 01/08/19 23:07 Pulse Ox 95 01/08/19 23:07 - Orders/Labs/Meds Orders: Active Orders 24 hr Category Date Time Status RT Aerosol Therapy [RC] ASDIRECTED Care 01/08/19 22:48 Active CULTURE BLOOD [BC] Urgent Lab 01/08/19 22:40 Received CULTURE BLOOD [BC] Urgent Lab 01/08/19 22:58 Received Sodium Chloride 0.9% [Saline Flush] Med 01/08/19 22:47 Active 10 ml FLUSH ASDIRECTED PRN Blood Culture x2 Reflex Set [OM.PC] Urgent Oth 01/08/19 22:47 Ordered Saline Lock Insert [OM.PC] Urgent Oth 01/08/19 22:46 Ordered Medication Orders Sodium Chloride (Saline Flush) 10 ml FLUSH ASDIRECTED PRN PRN Reason: Keep Vein Open Last Admin: 01/08/19 23:05 Dose: 10 ml Labs: Laboratory Tests 01/08/19 01/08/19 01/08/19 Range/Units 22:58 22:58 22:58 WBC 6.9 (4.5-11.0) K/uL RBC 4.44 (4.30-5.90) M/uL Hgb 13.4 (12.0-15.0) g/dL Hct 41.1 (40.0-54.0) % MCV 93 (80-98) fL MCH 30 (27-31) pg MCHC 33 (32-36) % Plt Count 149 L (150-400) K/uL Neut % (Auto) 65 (36-66) % Lymph % (Auto) 20 L (24-44) % [place] % (Auto) 14 H (2-6) % Eos % (Auto) 1 L (2-4) % Baso % (Auto) 0 (0-1) % Sodium 142 (140-148) mmol/L Potassium 3.8 (3.6-5.2) mmol/L Chloride 103 (100-108) mmol/L Carbon Dioxide 32 (21-32) mmol/L Anion Gap 6.9 (5.0-14.0) mmol/L BUN 29 H (7-18) mg/dL Creatinine 1.4 H (0.8-1.3) mg/dL Est Cr Clr Drug Dosing 35.29 mL/min Estimated GFR (MDRD) 48 L (>60) Glucose 109 H (74-106) mg/dL Lactic Acid 1.2 (0.4-2.0) mmol/L Calcium 9.1 (8.5-10.1) mg/dL Total Bilirubin 0.6 (0.2-1.0) mg/dL AST 12 L (15-37) U/L ALT 3 L (12-78) U/L Alkaline Phosphatase 94 (46-116) U/L Total Protein 6.4 (6.4-8.2) g/dL Albumin 3.0 L (3.4-5.0) g/dL Globulin 3.4 (2.3-3.5) g/dL Albumin/Globulin Ratio 0.9 L (1.2-2.2) Meds: Medications Generic Name Dose Route Start Last Admin Trade Name Freq PRN Reason Stop Dose Admin Sodium Chloride 10 ml 01/08/19 22:47 01/08/19 23:05 Saline Flush FLUSH 10 ml ASDIRECTED PRN Administration Keep Vein Open Discontinued Medications Generic Name Dose Route Start Last Admin Trade Name Freq PRN Reason Stop Dose Admin Albuterol 2.5 mg 01/08/19 22:48 01/08/19 22:58 Proventil Neb Soln NEB 01/08/19 22:49 2.5 mg ONETIME ONE Administration Ceftriaxone Sodium 1 gm/ 50 mls @ 100 mls/hr 01/08/19 22:56 01/08/19 23:05 Sodium Chloride IV 01/08/19 23:25 100 mls/hr ONETIME ONE Administration Doxycycline Hyclate 100 mg/ 100 mls @ 100 mls/hr 01/08/19 22:57 01/08/19 23: 37 Sodium Chloride IV 01/08/19 23:56 100 mls/hr ONETIME ONE Administration Methylprednisolone Sodium Succinate 125 mg 01/08/19 22:48 01/08/19 22:58 Solu-Medrol IVPUSH 01/08/19 22:49 125 mg ONETIME ONE Administration - Radiology Interpretation Free Text/Narrative:: Chest x-ray report reads cardiomegaly with pulmonary cephalization and small right pleural effusion with bibasilar airspace disease likely atelectasis. - Re-Assessments/Exams Free Text/Narrative Re-Assessment/Exam: 01/09/19 00:08 Patient received an albuterol nebulizer treatment. Also Solu-Medrol 125 mg IV, Rocephin 1 g and doxycycline 100 mg IV. These are the same antibiotics he received previously. He appears to be stable at this point and the hospitalist Kathy Weber has been informed and she will see him shortly Departure - Departure Time of Disposition: 00:09 Disposition: Admitted As Inpatient 66 Condition: Fair Clinical Impression: Acute bronchitis - Discharge Information Referrals: Abhinav Oviedo MD [Primary Care Provider] - - My Orders Last 24 Hours: My Active Orders 01/08/19 22:40 CULTURE BLOOD [BC] Urgent 01/08/19 22:46 Saline Lock Insert [OM.PC] Urgent 01/08/19 22:47 Sodium Chloride 0.9% [Saline Flush] 10 ml FLUSH ASDIRECTED PRN Blood Culture x2 Reflex Set [OM.PC] Urgent 01/08/19 22:48 RT Aerosol Therapy [RC] ASDIRECTED 01/08/19 22:58 CULTURE BLOOD [BC] Urgent - Assessment/Plan Last 24 Hours: My Active Orders 01/08/19 22:40 CULTURE BLOOD [BC] Urgent 01/08/19 22:46 Saline Lock Insert [OM.PC] Urgent 01/08/19 22:47 Sodium Chloride 0.9% [Saline Flush] 10 ml FLUSH ASDIRECTED PRN Blood Culture x2 Reflex Set [OM.PC] Urgent 01/08/19 22:48 RT Aerosol Therapy [RC] ASDIRECTED 01/08/19 22:58 CULTURE BLOOD [BC] Urgent
[2019-01-09] MEDS ORDERED: Docusate Sodium 100 MG Cap PO PRN (01:06)
[2019-01-09] MEDS ORDERED: Albuterol 0.083% 2.5 MG/3 ML Neb Soln NEB PRN (01:06)
[2019-01-09] MEDS ORDERED: Sodium Chloride 0.9% 1,000 ML IV SCH (01:06)
[2019-01-09] MEDS ORDERED: Carbidopa/Levodopa 25-100 MG Tab PO SCH (01:06)
[2019-01-09] MEDS ORDERED: Bisacodyl 5 MG Tab PO PRN (01:06)
[2019-01-09] MEDS ORDERED: Acetaminophen 325 MG Tab PO PRN (01:06)
[2019-01-09] MEDS ORDERED: Melatonin 3 MG Tab PO PRN (01:06)
[2019-01-09] MEDS ORDERED: Ondansetron 4 MG/2 ML SDV IV PRN (01:06)
[2019-01-09] MEDS ORDERED: guaiFENesin/Dextromethorphan 100-10 MG/5 ML Soln 10 ML Cup PO PRN (01:06)
[2019-01-09] MEDS ORDERED: Ondansetron 4 MG Tab.DIS PO PRN (01:06)
[2019-01-09] MEDS: Magnesium Oxide 400 MG Tab PO SCH ×2 (01:31→20:56)
--- NOTE | 2019-01-09 01:45 | PCM.HP ---
H&P History of Present Illness - General Date of Service: 01/08/19 Admit Problem/Dx: Admission Diagnosis/Problem Admission Diagnosis/Problem Bronchitis Source of Information: Patient, Family ( Mary Kate), Provider, RN History Limitations: Reports: No Limitations - History of Present Illness Initial Comments - Free Text/Narative: This gentleman comes in for bronchitis symptoms. He said he's been sick for the past 3 months with a lot of coughing and so forth but apparently has gotten worse over the past few days. His said he's been coughing up green stuff. And has had a low-grade fever at home. EMS noted a temp of about 99.[address] in. He received a DuoNeb treatment in route to the hospital. He was treated at our facility for acute bronchitis a little over a year ago. Patient received an albuterol nebulizer treatment. Also Solu-Medrol 125 mg IV, Rocephin 1 g and doxycycline 100 mg IV. These are the same antibiotics he received previously. He appears to be stable at this point and the hospitalist to admit to [facility]. Onset of Symptoms: Reports: Gradual Duration of Symptoms: Reports: Day(s): (has been sick with cough for 3 months, worsen symptoms for 2-3 days) Location: Reports: Chest, Generalized (weakness) Quality: Reports: Same as Previous Episode Severity: Severe Improves with: Reports: Medication Worsens with: Reports: None Context: Reports: Other (cough and respiratory infection for 3 months.) Associated Symptoms: Reports: Cough, Fever/Chills, Malaise, Shortness of Breath , Weakness - Related Data Allergies/Adverse Reactions: Allergies Allergy/AdvReac Type Severity Reaction Status Date / Time ephedrine Allergy Other Verified 05/08/17 13:50 lisinopril Allergy Other Verified 05/08/17 13:50 tramadol Allergy Other Verified 05/08/17 13:50 hydrocodone AdvReac Confusion Verified 05/08/17 13:50 oxycodone AdvReac Confusion Verified 05/08/17 13:50 Penicillins AdvReac Rash Verified 05/08/17 13:50 Home Medications: Home Meds Meloxicam [Mobic] 7.5 mg PO BID PRN 08/25/14 [History] Carbidopa/Levodopa [Carbidopa-Levo ER 50-200] 1 tab PO DAILY 12/30/15 [History] Carbidopa/Levodopa [Carbidopa-Levodopa 25-100 Tab] 2.5 tab PO TID 12/30/15 [ History] Thyroid,Pork [Nature-Throid] 65 mg PO DAILY 12/30/15 [History] Finasteride [Proscar] 5 mg PO DAILY 02/26/16 [History] Tamsulosin [Flomax] 0.4 mg PO PCBREAKFAST #30 cap.er 02/29/16 [Rx] Vit B12/Lmefolate Ca/Vit B6/B2 [l-Methyl-Mc Tablet] 1 each PO DAILY 04/25/16 [ History] Vitamin D3/Vitamin K2 [D3 + K2 Dots 1,000 Unit] 1 tab PO DAILY 01/23/17 [History ] Focus 2 cap PO BID 09/21/17 [History] Acetaminophen [Tylenol] 650 mg PO Q4H PRN #100 tablet 09/25/17 [Rx] Losartan/Hydrochlorothiazide [Losartan-HCTZ 50-12.5 MG] 1 each PO DAILY [History] Propylene Glycol/PEG 400/Pf [Systane Ultra 0.4-0.3% Eye Drp] 1 each OP BID 01/08 [History] Past Medical History HEENT History: Reports: Cataract, Impaired Vision, Macular Degeneration Cardiovascular History: Reports: Hypertension, Other (See Below) Other Cardiovascular History: PVC's Gastrointestinal History: Reports: Chronic Constipation Genitourinary History: Reports: Prostate Disorder, Renal Calculus, Renal Disease , Urinary Incontinence, Other (See Below) Other Genitourinary History: Urinary frequency Musculoskeletal History: Reports: Fracture, Gout Neurological History: Reports: Parkinson's Endocrine/Metabolic History: Reports: Hypothyroidism - Infectious Disease History Infectious Disease History: Reports: Measles - Past Surgical History HEENT Surgical History: Reports: Cataract Surgery Musculoskeletal Surgical History: Reports: Knee Replacement Social & Family History - Family History Family Medical History: Noncontributory - Tobacco Use Smoking Status *Q: Never Smoker - Caffeine Use Caffeine Use: Reports: Coffee - Recreational Drug Use Recreational Drug Use: No - Living Situation & Occupation Living situation: Reports: , Assisted Living ([facility] in [place]. lives in own home.) Occupation: Retired H&P Review of Systems - Review of Systems: Review Of Systems: See Below General: Reports: Fever (reports low grade fever 99), Weakness, Fatigue HEENT: Reports: No Symptoms Pulmonary: Reports: Shortness of Breath, Wheezing, Pleuritic Chest Pain, Cough, Sputum Cardiovascular: Reports: No Symptoms Gastrointestinal: Reports: No Symptoms, Other (reports last bowel movement on Sunday) Genitourinary: Reports: Incontinence Musculoskeletal: Reports: No Symptoms Skin: Reports: No Symptoms Psychiatric: Reports: No Symptoms Neurological: Reports: Pre-Existing Deficit (Parkinson's disease), Difficulty Walking (use of walker or wheelchair) Hematologic/Lymphatic: Reports: No Symptoms Immunologic: Reports: No Symptoms Exam - Exam Exam: See Below - Vital Signs Vital Signs: Last Vital Signs Temp 36.5 C 01/09/19 01:22 Pulse 71 01/09/19 01:22 Resp 20 01/09/19 01:22 BP 172/63 H 01/09/19 01:22 Pulse Ox 94 L 01/09/19 01:22 Weight: 78.018 kg - Exam Quality Assessment: Supplemental Oxygen, DVT Prophylaxis, Other (Iv fluids) General: Alert, Oriented, Cooperative, Mild Distress, Other (frail appearance. ) HEENT: PERRLA, Conjunctiva Clear, EOMI, Hearing Intact, Mucosa Moist & [place], Nares Patent, Other (upper dentures, partial lower teeth) Neck: Supple, Trachea Midline Lungs: Normal Respiratory Effort, Decreased Breath Sounds, Rhonchi (bilateral, coarse breath sounds and loose cough noted.) Cardiovascular: Regular Rate, Regular Rhythm, Normal S1, Normal S2 GI/Abdominal Exam: Normal Bowel Sounds, Soft, Non-Tender (Male) Exam: Deferred, Other (wearing adult diaper) Rectal (Males) Exam: Deferred Back Exam: Normal Inspection Extremities: Pedal Edema (compression stocking ), Other (weakness, equal tone) Skin: Warm, Dry, Intact Neurological: Strength Equal Bilateral, Normal Speech, Normal Tone Neuro Extensive - Mental Status: Alert, Oriented x3, Normal Mood/Affect, Normal Cognition Neuro Extensive - Motor, Sensory, Reflexes: Motor/Sensory Deficits Psychiatric: Alert, Normal Affect, Normal Mood - Patient Data Lab Results Last 24 hrs: Laboratory Results - last 24 hr 01/08/19 01/08/19 01/08/19 Range/Units 22:58 22:58 22:58 WBC 6.9 (4.5-11.0) K/uL RBC 4.44 (4.30-5.90) M/uL Hgb 13.4 (12.0-15.0) g/dL Hct 41.1 (40.0-54.0) % MCV 93 (80-98) fL MCH 30 (27-31) pg MCHC 33 (32-36) % Plt Count 149 L (150-400) K/uL Neut % (Auto) 65 (36-66) % Lymph % (Auto) 20 L (24-44) % [place] % (Auto) 14 H (2-6) % Eos % (Auto) 1 L (2-4) % Baso % (Auto) 0 (0-1) % Sodium 142 (140-148) mmol/L Potassium 3.8 (3.6-5.2) mmol/L Chloride 103 (100-108) mmol/L Carbon Dioxide 32 (21-32) mmol/L Anion Gap 6.9 (5.0-14.0) mmol/L BUN 29 H (7-18) mg/dL Creatinine 1.4 H (0.8-1.3) mg/dL Est Cr Clr Drug Dosing 35.29 mL/min Estimated GFR (MDRD) 48 L (>60) Glucose 109 H (74-106) mg/dL Lactic Acid 1.2 (0.4-2.0) mmol/L Calcium 9.1 (8.5-10.1) mg/dL Total Bilirubin 0.6 (0.2-1.0) mg/dL AST 12 L (15-37) U/L ALT 3 L (12-78) U/L Alkaline Phosphatase 94 (46-116) U/L Total Protein 6.4 (6.4-8.2) g/dL Albumin 3.0 L (3.4-5.0) g/dL Globulin 3.4 (2.3-3.5) g/dL Albumin/Globulin Ratio 0.9 L (1.2-2.2) Result Diagrams: 01/08/19 22:58 01/08/19 22:58 - Problem List (1) Acute bronchitis SNOMED Code(s): 83308176 ICD Code: J20.9 - ACUTE BRONCHITIS, UNSPECIFIED Status: Acute Priority: High Current Visit: Yes Qualifiers: Bronchitis organism: unspecified organism Qualified Code(s): J20.9 - Acute bronchitis, unspecified (2) Parkinsons disease SNOMED Code(s): 40134750 ICD Code: G20 - PARKINSON'S DISEASE Status: Chronic Priority: Medium Current Visit: Yes (3) Hypertension SNOMED Code(s): 81586060 ICD Code: I10 - ESSENTIAL (PRIMARY) HYPERTENSION Status: Acute Priority: Medium Current Visit: Yes Qualifiers: Hypertension type: essential hypertension Qualified Code(s): I10 - Essential (primary) hypertension (4) BPH without obstruction/lower urinary tract symptoms SNOMED Code(s): 941205918 ICD Code: N40.0 - BENIGN PROSTATIC HYPERPLASIA WITHOUT LOWER URINRY TRACT SYMP Status: Acute Priority: Low Current Visit: Yes (5) Sleep apnea SNOMED Code(s): 63911735 ICD Code: G47.30 - SLEEP APNEA, UNSPECIFIED Status: Acute Priority: Low Current Visit: Yes (6) Hypothyroidism SNOMED Code(s): 41761499 ICD Code: E03.9 - HYPOTHYROIDISM, UNSPECIFIED Status: Acute Priority: Low Current Visit: Yes Qualifiers: Hypothyroidism type: unspecified Qualified Code(s): E03.9 - Hypothyroidism , unspecified Problem List Initiated/Reviewed/Updated: Yes Orders Last 24hrs: Active Orders 24 hr Category Date Time Status Cardiac Monitoring [RC] CONTINUOUS Care 01/09/19 01:06 Active Intake and Output [RC] QSHIFT Care 01/09/19 01:06 Active Notify Provider Vital Signs [RC] ASDIRECTED Care 01/09/19 01:06 Active Oxygen Therapy [RC] PRN Care 01/09/19 01:06 Active Pulse Oximetry [RC] CONTINUOUS Care 01/09/19 01:06 Active RT Aerosol Therapy [RC] ASDIRECTED Care 01/09/19 01:06 Active Up With Assistance [RC] ASDIRECTED Care 01/09/19 01:06 Active VTE/DVT Education [RC] Per Unit Routine Care 01/09/19 01:06 Active Vital Signs [RC] Q4H Care 01/09/19 01:06 Active Regular Diet [DIET] Diet 01/09/19 Breakfast Active BASIC METABOLIC PANEL,BMP [CHEM] AM Lab 01/09/19 05:11 Ordered CBC WITH AUTO DIFF [HEME] AM Lab 01/09/19 05:11 Ordered CULTURE BLOOD [BC] Urgent Lab 01/08/19 22:40 Received CULTURE BLOOD [BC] Urgent Lab 01/08/19 22:58 Received Acetaminophen [Tylenol] Med 01/09/19 01:06 Active 650 mg PO Q4H PRN Albuterol [Proventil Neb Soln] Med 01/09/19 01:06 Active 2.5 mg NEB Q4H PRN Albuterol/Ipratropium [DuoNeb 3.0-0.5 MG/3 ML] Med 01/09/19 07:00 Active 3 ml NEB QIDRT Bisacodyl [Dulcolax] Med 01/09/19 01:06 Active 5 mg PO DAILY PRN Carbidopa/Levodopa [Sinemet 25-100 mg] Med 01/09/19 01:06 Active 2.5 tab PO TID Carbidopa/Levodopa [Sinemet Cr 50-200 mg] Med 01/09/19 09:00 Active 1 tab PO DAILY Cholecalciferol (Vitamin D3) [Vitamin D3] Med 01/09/19 09:00 Active 1,000 units PO DAILY Dextromethorphan/guaiFENesin [Robitussin DM] Med 01/09/19 01:06 Active 10 ml PO Q4H PRN Docusate Sodium [Colace] Med 01/09/19 01:06 Active 100 mg PO BID PRN Doxycycline [Vibramycin] 100 mg Med 01/09/19 09:10 Active Sodium Chloride 0.9% [Normal Saline] 100 ml IV Q12H Enoxaparin [Lovenox] Med 01/09/19 09:00 Active 40 mg SUBCUT DAILY Finasteride [Proscar] Med 01/09/19 09:00 Active 5 mg PO DAILY Hypromellose [Natural Balance Tears] Med 01/09/19 09:00 Active 0 ml EYEBOTH BID Losartan [Cozaar] Med 01/09/19 09:00 Active 50 mg PO DAILY Magnesium Oxide Med 01/09/19 01:06 Active 400 mg PO BEDTIME Melatonin Med 01/09/19 01:06 Active 6 mg PO BEDTIME PRN Ondansetron [Zofran ODT] Med 01/09/19 01:06 Active 4 mg PO Q6H PRN Ondansetron [Zofran] Med 01/09/19 01:06 Active 4 mg IV Q4H PRN Sodium Chloride 0.9% [Normal Saline] 1,000 ml Med 01/09/19 01:06 Active IV ASDIRECTED Sodium Chloride 0.9% [Saline Flush] Med 01/08/19 22:47 Active 10 ml FLUSH ASDIRECTED PRN Tamsulosin [Flomax] Med 01/09/19 09:00 Active 0.4 mg PO PCBREAKFAST Thyroid,Pork [Nature-Throid] Med 01/09/19 09:00 Active 65 mg PO DAILY Vit B12/Lmefolate Ca/Vit B6/B2 [l-Methyl-Mc Tablet] Med 01/09/19 09:00 Active 1 each PO DAILY cefTRIAXone [Rocephin] 1 gm Med 01/09/19 21:10 Active Sodium Chloride 0.9% [Normal Saline] 50 ml IV Q24H hydroCHLOROthiazide Med 01/09/19 09:00 Active 12.5 mg PO DAILY methylPREDNISolone Sod Succ [Solu-MEDROL] Med 01/09/19 05:10 Active 62.5 mg IVPUSH Q6H Blood Culture x2 Reflex Set [OM.PC] Urgent Oth 01/08/19 22:47 Ordered Pressure Reduction Mattress [OM.PC] Routine Oth 01/09/19 01:06 Ordered SCD [Sequential Compression Device] [OM.PC] Routine Oth 01/09/19 01:13 Ordered Resuscitation Status Routine Resus Stat 01/09/19 00:45 Ordered Medication Orders Acetaminophen (Tylenol) 650 mg PO Q4H PRN PRN Reason: Pain (Mild 1-3)/fever Albuterol (Proventil Neb Soln) 2.5 mg NEB Q4H PRN PRN Reason: Shortness Of Breath/wheezing Albuterol/Ipratropium (Duoneb 3.0-0.5 Mg/3 Ml) 3 ml NEB QIDRT ANN Artificial Tears (Natural Balance Tears) 0 ml EYEBOTH BID ANN Bisacodyl (Dulcolax) 5 mg PO DAILY PRN PRN Reason: Constipation Carbidopa/Levodopa (Sinemet Cr 50-200 Mg) 1 tab PO DAILY ANN Carbidopa/Levodopa (Sinemet 25-100 Mg) 2.5 tab PO TID ANN Cholecalciferol (Vitamin D3) 1,000 units PO DAILY ANN Docusate Sodium (Colace) 100 mg PO BID PRN PRN Reason: Constipation Enoxaparin Sodium (Lovenox) 40 mg SUBCUT DAILY ANN Finasteride (Proscar) 5 mg PO DAILY PENDING SALE TO [facility] Guaifenesin/Dextromethorphan (Robitussin Dm) 10 ml PO Q4H PRN PRN Reason: Cough Hydrochlorothiazide (Hydrochlorothiazide) 12.5 mg PO DAILY PENDING SALE TO [facility] Doxycycline Hyclate 100 mg/ (Sodium Chloride) 100 mls @ 100 mls/hr IV Q12H ANN Ceftriaxone Sodium 1 gm/ (Sodium Chloride) 50 mls @ 100 mls/hr IV Q24H ANN Sodium Chloride (Normal Saline) 1,000 mls @ 75 mls/hr IV ASDIRECTED PENDING SALE TO [facility] Losartan Potassium (Cozaar) 50 mg PO DAILY ANN Magnesium Oxide (Magnesium Oxide) 400 mg PO BEDTIME ANN Melatonin (Melatonin) 6 mg PO BEDTIME PRN PRN Reason: Insomnia Methylprednisolone Sodium Succinate (Solu-Medrol) 62.5 mg IVPUSH Q6H PENDING SALE TO [facility] Non-Formulary Medication (Thyroid,Pork [Nature-Throid]) 65 mg PO DAILY PENDING SALE TO [facility] Non-Formulary Medication (Vit B12/Lmefolate Ca/Vit B6/B2 [L-Methyl-Mc Tablet]) 1 each PO DAILY PENDING SALE TO [facility] Ondansetron HCl (Zofran Odt) 4 mg PO Q6H PRN PRN Reason: Nausea able to take PO Ondansetron HCl (Zofran) 4 mg IV Q4H PRN PRN Reason: Nausea/Vomiting Sodium Chloride (Saline Flush) 10 ml FLUSH ASDIRECTED PRN PRN Reason: Keep Vein Open Last Admin: 01/08/19 23:05 Dose: 10 ml Tamsulosin HCl (Flomax) 0.4 mg PO [facility] Assessment/Plan Comment:: ASSESSMENT AND PLAN Bronchitis with hypoxia: This is a 88 year old male arrived to ER via EMS from [facility]. , Mary Kate is at bedside. She reports Reynaldo has been sick for about 3 months with a cough. The past few days, worsen cough, low grade fevers, increased weakness. -Supplemental oxygen as needed - IV fluids for hydration, 75 ml/hr overnight -Nebulized albuterol prn and duo nebs scheduled every 6 hours -IV Solumedrol 62.5 mg every 6 hours -antibiotic therapy: IV Doxycycline every 12 hours, Rocephin 1 gram IV every 24 hours -Robitussin DM 10 ml every 4 hours prn. cough -blood cultures x2 pending -am labs CBC, BMP Parkinson's disease -continue schedule medications -Magnesium at bedtime for restlessness -Melatonin 6 mg prn at HS for sleep Hypertension -monitor blood pressure -continue medications Hypothyroidism -continue medications BPH, urinary incontinence -continue medications Sleep apnea -oxygen at night and prn during the day -pulse oximetry MAINTENANCE ISSUES -DVT prophylaxis; Lovenox 40 mg subcutaneous daily -GI prophylaxis; not indicated -Barger catheter; not indicated -Nutrition; regular diet, avoid dairy, milk causes worsen cough -Ambulation, use of walker or wheelchair, reports has been mostly using wheelchair. CODE STATUS-DNR/DNI, would be okay with Bi-pap, no intubation or CPR, request a natural . and Mrs. Rivear agree DNR/DNI ADMISSION STATUS-patient will be admitted to inpatient status, expect at least a 2 night hospital stay for evaluation and management of problems as outlined above. At the time of this admission I do not reasonably expected evaluation and management of this problem will require more than a 96 hour hospital stay. DISPOSITION-anticipate discharge to [facility] [place] after the hospital stay. PRIMARY CARE PROVIDER-Dr. Oviedo HOSPITALIST: Dr. Dyson
[2019-01-09] MEDS ORDERED: methylPREDNISolone Sodium Succinate 125 MG/2 ML SDV IVPUSH SCH ×2 (05:10→12:00)
[2019-01-09] MEDS ORDERED: Albuterol/Ipratropium 3.0-0.5 MG/3 ML Neb Soln NEB SCH (06:00)
[2019-01-09] MEDS: Albuterol/Ipratropium 3.0-0.5 MG/3 ML Neb Soln NEB SCH ×4 (07:14→20:54)
[2019-01-09] MEDS ORDERED: Carbidopa/Levodopa 50-200 MG Tab.ER PO SCH ×2 (09:00→21:00)
[2019-01-09] MEDS ORDERED: B2 PO SCH (09:00)
[2019-01-09] MEDS ORDERED: [UNRECOGNIZED DRUG - OTHER] PO SCH (09:00)
[2019-01-09] MEDS ORDERED: VIT B12 PO SCH (09:00)
[2019-01-09] MEDS ORDERED: VIT B6 PO SCH (09:00)
[2019-01-09] MEDS ORDERED: Hypromellose 0.4% Ophth Soln 15 ML Bottle EYEBOTH SCH (09:00)
[2019-01-09] MEDS ORDERED: LMEFOLATE CA PO SCH (09:00)
[2019-01-09] MEDS ORDERED: Non-Formulary Medication 1 Each (Thyroid,Pork [Nature-Throid] 65 MG) PO SCH (09:00)
[2019-01-09] MEDS: Hydrochlorothiazide 12.5 MG Cap PO SCH (09:04)
[2019-01-09] MEDS: Tamsulosin 0.4 MG Cap.ER PO SCH (09:04)
[2019-01-09] MEDS: Losartan 50 MG Tab PO SCH (09:04)
[2019-01-09] MEDS: Hypromellose 0.4% Ophth Soln 15 ML Bottle EYEBOTH SCH ×2 (09:05→20:56)
[2019-01-09] MEDS: Enoxaparin 40 MG/0.4 ML Syringe SUBCUT SCH (09:05)
[2019-01-09] MEDS: Cholecalciferol (Vitamin D3) 1,000 Unit Tab PO SCH (09:06)
[2019-01-09] MEDS: Finasteride 5 MG Tab PO SCH (09:07)
[2019-01-09] MEDS ORDERED: Doxycycline 100 MG in Sodium Chloride 0.9% 100 ML IV SCH (09:10)
[2019-01-09] MEDS: Doxycycline 100 MG in Sodium Chloride 0.9% 100 ML IV SCH ×2 (10:45→22:03)
[2019-01-09] MEDS: Vitamin B Complex Tab PO SCH (10:48)
[2019-01-09] MEDS: Carbidopa/Levodopa 25-100 MG Tab PO SCH ×2 (10:48→15:35)
--- NOTE | 2019-01-09 10:52 | PCM.PN ---
- General Info Date of Service: 01/09/19 Subjective Update: Mr. Rivera is an 88-year-old gentleman who was admitted through the emergency department last night with progressive weakness and shortness of breath secondary to bronchitis and COPD exacerbation. He is been started on IV antibiotic therapy and has received nebulizer treatments as well as Solu- Medrol. He has improved from admission with less shortness of breath. Functional Status: Reports: Tolerating Diet, Urinating - Review of Systems General: Reports: Weakness. Denies: Fever, Chills Pulmonary: Reports: Shortness of Breath, Cough, Sputum, Wheezing. Denies: Pleuritic Chest Pain, Hemoptysis Cardiovascular: Reports: Dyspnea on Exertion. Denies: Chest Pain, Palpitations , Orthopnea, PND, Edema Gastrointestinal: Reports: No Symptoms - Patient Data Vitals - Most Recent: Last Vital Signs Temp 97.1 F 01/09/19 07:32 Pulse 77 01/09/19 07:32 Resp 18 01/09/19 07:32 BP 135/54 L 01/09/19 09:04 Pulse Ox 97 01/09/19 07:49 Weight - Most Recent: 176 lb 5.917 oz I&O - Last 24 Hours: Intake & Output 01/08/19 01/09/19 01/09/19 22:59 06:59 14:59 Intake Total 414 100 Balance 414 100 Lab Results Last 24 Hours: Laboratory Results - last 24 hr 01/08/19 01/08/19 01/08/19 Range/Units 22:58 22:58 22:58 WBC 6.9 (4.5-11.0) K/uL RBC 4.44 (4.30-5.90) M/uL Hgb 13.4 (12.0-15.0) g/dL Hct 41.1 (40.0-54.0) % MCV 93 (80-98) fL MCH 30 (27-31) pg MCHC 33 (32-36) % Plt Count 149 L (150-400) K/uL Neut % (Auto) 65 (36-66) % Lymph % (Auto) 20 L (24-44) % [place] % (Auto) 14 H (2-6) % Eos % (Auto) 1 L (2-4) % Baso % (Auto) 0 (0-1) % Sodium 142 (140-148) mmol/L Potassium 3.8 (3.6-5.2) mmol/L Chloride 103 (100-108) mmol/L Carbon Dioxide 32 (21-32) mmol/L Anion Gap 6.9 (5.0-14.0) mmol/L BUN 29 H (7-18) mg/dL Creatinine 1.4 H (0.8-1.3) mg/dL Est Cr Clr Drug Dosing 35.29 mL/min Estimated GFR (MDRD) 48 L (>60) Glucose 109 H (74-106) mg/dL Lactic Acid 1.2 (0.4-2.0) mmol/L Calcium 9.1 (8.5-10.1) mg/dL Total Bilirubin 0.6 (0.2-1.0) mg/dL AST 12 L (15-37) U/L ALT 3 L (12-78) U/L Alkaline Phosphatase 94 (46-116) U/L Total Protein 6.4 (6.4-8.2) g/dL Albumin 3.0 L (3.4-5.0) g/dL Globulin 3.4 (2.3-3.5) g/dL Albumin/Globulin Ratio 0.9 L (1.2-2.2) 01/09/19 01/09/19 Range/Units 04:36 04:36 WBC 7.3 (4.5-11.0) K/uL RBC 4.50 (4.30-5.90) M/uL Hgb 13.7 (12.0-15.0) g/dL Hct 41.2 (40.0-54.0) % MCV 92 (80-98) fL MCH 30 (27-31) pg MCHC 33 (32-36) % Plt Count 145 L (150-400) K/uL Neut % (Auto) 88 H (36-66) % Lymph % (Auto) 10 L (24-44) % Deuel % (Auto) 2 (2-6) % Eos % (Auto) 0 L (2-4) % Baso % (Auto) 0 (0-1) % Sodium 143 (140-148) mmol/L Potassium 3.8 (3.6-5.2) mmol/L Chloride 105 (100-108) mmol/L Carbon Dioxide 32 (21-32) mmol/L Anion Gap 6.4 (5.0-14.0) mmol/L BUN 27 H (7-18) mg/dL Creatinine 1.2 (0.8-1.3) mg/dL Est Cr Clr Drug Dosing 39.78 mL/min Estimated GFR (MDRD) 57 L (>60) Glucose 155 H (74-106) mg/dL Lactic Acid (0.4-2.0) mmol/L Calcium 8.9 (8.5-10.1) mg/dL Total Bilirubin (0.2-1.0) mg/dL AST (15-37) U/L ALT (12-78) U/L Alkaline Phosphatase (46-116) U/L Total Protein (6.4-8.2) g/dL Albumin (3.4-5.0) g/dL Globulin (2.3-3.5) g/dL Albumin/Globulin Ratio (1.2-2.2) Med Orders - Current: Current Medications Acetaminophen (Tylenol) 650 mg PO Q4H PRN PRN Reason: Pain (Mild 1-3)/fever Albuterol (Proventil Neb Soln) 2.5 mg NEB Q4H PRN PRN Reason: Shortness Of Breath/wheezing Albuterol/Ipratropium (Duoneb 3.0-0.5 Mg/3 Ml) 3 ml NEB QIDRT [facility] Last Admin: 01/09/19 07:14 Dose: 3 ml Artificial Tears (Natural Balance Tears) 0 ml EYEBOTH BID [facility] Last Admin: 01/09/19 09:05 Dose: 1 ea Bisacodyl (Dulcolax) 5 mg PO DAILY PRN PRN Reason: Constipation Carbidopa/Levodopa (Sinemet Cr 50-200 Mg) 1 tab PO BEDTIME [facility] Carbidopa/Levodopa (Sinemet 25-100 Mg) 2.5 tab PO TID@0630,1030,1530 [facility] Last Admin: 01/09/19 10:48 Dose: 2.5 tab Cholecalciferol (Vitamin D3) 1,000 units PO DAILY [facility] Last Admin: 01/09/19 09:06 Dose: 1,000 units Docusate Sodium (Colace) 100 mg PO BID PRN PRN Reason: Constipation Enoxaparin Sodium (Lovenox) 40 mg SUBCUT DAILY [facility] Last Admin: 01/09/19 09:05 Dose: 40 mg Finasteride (Proscar) 5 mg PO DAILY [facility] Last Admin: 01/09/19 09:07 Dose: 5 mg Guaifenesin/Dextromethorphan (Robitussin Dm) 10 ml PO Q4H PRN PRN Reason: Cough Hydrochlorothiazide (Hydrochlorothiazide) 12.5 mg PO DAILY [facility] Last Admin: 01/09/19 09:04 Dose: 12.5 mg Sodium Chloride (Normal Saline) 1,000 mls @ 75 mls/hr IV ASDIRECTED [facility] Last Admin: 01/09/19 01:31 Dose: 75 mls/hr Doxycycline Hyclate 100 mg/ (Sodium Chloride) 100 mls @ 100 mls/hr IV Q12H [facility] Last Admin: 01/09/19 10:45 Dose: 100 mls/hr Ceftriaxone Sodium 1 gm/ (Sodium Chloride) 50 mls @ 100 mls/hr IV Q24H [facility] Losartan Potassium (Cozaar) 50 mg PO DAILY [facility] Last Admin: 01/09/19 09:04 Dose: 50 mg Magnesium Oxide (Magnesium Oxide) 400 mg PO BEDTIME [facility] Last Admin: 01/09/19 01:31 Dose: 400 mg Melatonin (Melatonin) 6 mg PO BEDTIME PRN PRN Reason: Insomnia Methylprednisolone Sodium Succinate (Solu-Medrol) 62.5 mg IVPUSH Q6H [facility] Ondansetron HCl (Zofran Odt) 4 mg PO Q6H PRN PRN Reason: Nausea able to take PO Ondansetron HCl (Zofran) 4 mg IV Q4H PRN PRN Reason: Nausea/Vomiting Sodium Chloride (Saline Flush) 10 ml FLUSH ASDIRECTED PRN PRN Reason: Keep Vein Open Last Admin: 01/08/19 23:05 Dose: 10 ml Tamsulosin HCl (Flomax) 0.4 mg PO PCBREAKFAST [facility] Last Admin: 01/09/19 09:04 Dose: 0.4 mg Thyroid ([place] Thyroid) 60 mg PO DAILY [facility] Last Admin: 01/09/19 09:04 Dose: 60 mg Vitamin B Complex (Vitamin B Complex) 1 each PO DAILY [facility] Last Admin: 01/09/19 10:48 Dose: 1 each Discontinued Medications Albuterol (Proventil Neb Soln) 2.5 mg NEB ONETIME ONE Stop: 01/08/19 22:49 Last Admin: 01/08/19 22:58 Dose: 2.5 mg Albuterol/Ipratropium (Duoneb 3.0-0.5 Mg/3 Ml) 3 ml NEB QID [facility] Carbidopa/Levodopa (Sinemet 25-100 Mg) 2.5 tab PO TID [facility] Last Admin: 01/09/19 01:29 Dose: 2.5 tab Ceftriaxone Sodium 1 gm/ (Sodium Chloride) 50 mls @ 100 mls/hr IV ONETIME ONE Stop: 01/08/19 23:25 Last Admin: 01/08/19 23:05 Dose: 100 mls/hr Doxycycline Hyclate 100 mg/ (Sodium Chloride) 100 mls @ 100 mls/hr IV ONETIME ONE Stop: 01/08/19 23:56 Last Admin: 01/08/19 23:37 Dose: 100 mls/hr Methylprednisolone Sodium Succinate (Solu-Medrol) 125 mg IVPUSH ONETIME ONE Stop: 01/08/19 22:49 Last Admin: 01/08/19 22:58 Dose: 125 mg Methylprednisolone Sodium Succinate (Solu-Medrol) 62.5 mg IVPUSH Q6H [facility] Last Admin: 01/09/19 05:21 Dose: 62.5 mg Non-Formulary Medication (Thyroid,Pork [Nature-Throid]) 65 mg PO DAILY [facility] - Exam Quality Assessment: DVT Prophylaxis General: Alert, Oriented, Cooperative, Mild Distress Lungs: Decreased Breath Sounds, Rhonchi, Wheezing. No: Rales, Rub, Stridor Cardiovascular: Regular Rate, Regular Rhythm, No Murmurs GI/Abdominal Exam: Soft, Non-Tender, No Organomegaly, No Distention Extremities: Non-Tender, No Pedal Edema - Problem List Review Problem List Initiated/Reviewed/Updated: Yes - Plan Plan:: ASSESSMENT AND PLAN Bronchitis with hypoxia: This is a 88 year old male arrived to ER via EMS from [facility]. , Mary Kate is at bedside. She reports Reynaldo has been sick for about 3 months with a cough. The past few days, worsen cough, low grade fevers, increased weakness. -Supplemental oxygen as needed -Saline lock IV -Nebulized albuterol prn and duo nebs scheduled every 6 hours -Prednisone 40 mg by mouth daily -antibiotic therapy: IV Doxycycline every 12 hours, Rocephin 1 gram IV every 24 hours pending culture results -Robitussin DM 10 ml every 4 hours prn. cough -blood cultures x2 pending Parkinson's disease -continue schedule medications -Magnesium at bedtime for restlessness -Melatonin 6 mg prn at HS for sleep Hypertension -monitor blood pressure -continue medications Hypothyroidism -continue medications BPH, urinary incontinence -continue medications Sleep apnea -oxygen at night and prn during the day -pulse oximetry MAINTENANCE ISSUES -DVT prophylaxis; Lovenox 40 mg subcutaneous daily -GI prophylaxis; not indicated -Barger catheter; not indicated -Nutrition; regular diet, avoid dairy, milk causes worsen cough -Ambulation, use of walker or wheelchair, reports has been mostly using wheelchair. CODE STATUS-DNR/DNI, would be okay with Bi-pap, no intubation or CPR, request a natural . and Mrs. Rivera agree DNR/DNI ADMISSION STATUS-patient will be admitted to inpatient status, expect at least a 2 night hospital stay for evaluation and management of problems as outlined above. At the time of this admission I do not reasonably expected evaluation and management of this problem will require more than a 96 hour hospital stay. DISPOSITION-anticipate discharge to [facility] after the hospital stay. PRIMARY CARE PROVIDER-Dr. Oviedo HOSPITALIST: Dr. Dyson
[2019-01-09] MEDS ORDERED: cefTRIAXone 1 GM in Sodium Chloride 0.9% 50 ML IV SCH ×2 (21:10→23:00)
[2019-01-10] MEDS: Carbidopa/Levodopa 25-100 MG Tab PO SCH ×2 (06:20→09:47)
[2019-01-10] MEDS: Albuterol/Ipratropium 3.0-0.5 MG/3 ML Neb Soln NEB SCH (07:15)
[2019-01-10] MEDS ORDERED: predniSONE 20 MG Tab PO SCH (08:00)
[2019-01-10] MEDS: Vitamin B Complex Tab PO SCH (09:00)
[2019-01-10] MEDS: Losartan 50 MG Tab PO SCH (09:00)
[2019-01-10] MEDS: Hydrochlorothiazide 12.5 MG Cap PO SCH (09:00)
[2019-01-10 09:01] VITALS: BP 140/68
[2019-01-10] MEDS: Enoxaparin 40 MG/0.4 ML Syringe SUBCUT SCH (09:01)
[2019-01-10] MEDS: Tamsulosin 0.4 MG Cap.ER PO SCH (09:01)
[2019-01-10] MEDS: Hypromellose 0.4% Ophth Soln 15 ML Bottle EYEBOTH SCH (09:01)
[2019-01-10] MEDS: Finasteride 5 MG Tab PO SCH (09:01)
[2019-01-10] MEDS: Cholecalciferol (Vitamin D3) 1,000 Unit Tab PO SCH (09:01)
[2019-01-10] MEDS: Doxycycline 100 MG in Sodium Chloride 0.9% 100 ML IV SCH (09:47)
--- NOTE | 2019-01-10 10:04 | PCM.DCSUM1 ---
Discharge Summary - Hospital Course Brief History: Mr. Rivera is an 88-year-old gentleman who was admitted through the emergency department with shortness of breath and cough secondary to bronchitis and a component of asthma. - Discharge Data Discharge Date: 01/10/19 Discharge Disposition: Home, Self-Care 01 Condition: Fair - Discharge Diagnosis/Problem(s) (1) Acute bronchitis SNOMED Code(s): 00993896 ICD Code: J20.9 - ACUTE BRONCHITIS, UNSPECIFIED Status: Acute Priority: High Current Visit: Yes Qualifiers: Bronchitis organism: unspecified organism Qualified Code(s): J20.9 - Acute bronchitis, unspecified (2) CKD (chronic kidney disease) stage 3, GFR 30-59 ml/min SNOMED Code(s): 829526883 ICD Code: N18.3 - CHRONIC KIDNEY DISEASE, STAGE 3 (MODERATE) Status: Chronic Current Visit: No (3) Parkinsons disease SNOMED Code(s): 67705523 ICD Code: G20 - PARKINSON'S DISEASE Status: Chronic Priority: Medium Current Visit: Yes (4) Asthma SNOMED Code(s): 938599882 ICD Code: J45.909 - UNSPECIFIED ASTHMA, UNCOMPLICATED Status: Acute Current Visit: Yes - Patient Summary/Data Hospital Course: Mr Rivera is an 88-year-old gentleman who was admitted through the emergency department with shortness of breath and cough secondary to bronchitis and asthma. He said he's been sick for the past 3 months with a lot of coughing and so forth but apparently has gotten worse over the past few days. His said he's been coughing up green stuff. And has had a low-grade fever at home. EMS noted a temp of about 99.[address] in. He received a DuoNeb treatment in route to the hospital. He was treated at our facility for acute bronchitis a little over a year ago. On evaluation in the emergency department he was noted to be working relatively hard to breathe. White blood cell count was normal and chest x-ray showed no obvious infiltrate. He was admitted to the hospital and given supplemental oxygen for management of hypoxemia. Nebulizer therapy was continued and he was given IV Solu-Medrol as well as started on IV antibiotic therapy with doxycycline and ceftriaxone. He improved significantly over the next few days of hospitalization and will be transitioned to oral prednisone for 3 days and oral doxycycline for 3 days at home. Oxygen saturation on room air prior to discharge was 83% at rest, he will be discharged to home with supplemental oxygen 2 L/m via nasal cannula. Activity will be as tolerated and he will resume his usual diet. Follow-up appointment will be scheduled with his primary care provider within one week. - Patient Instructions Diet: Usual Diet as Tolerated Activity: As Tolerated Other/Special Instructions: Please schedule follow-up appointment with primary care provider within one week. Please arrange for home oxygen 2 L/m via nasal cannula. - Discharge Plan *PRESCRIPTION DRUG MONITORING PROGRAM REVIEWED*: Not Applicable *COPY OF PRESCRIPTION DRUG MONITORING REPORT IN PATIENT TERA: Not Applicable Prescriptions/Med Rec: Doxycycline [Vibramycin] 100 mg PO BID #6 cap predniSONE 40 mg PO WITHBREAKFAST #6 tablet Home Medications: Home Meds Meloxicam [Mobic] 7.5 mg PO BID PRN 08/25/14 [History] Carbidopa/Levodopa [Carbidopa-Levo ER 50-200] 1 tab PO BEDTIME 12/30/15 [History ] Carbidopa/Levodopa [Carbidopa-Levodopa 25-100 Tab] 2.5 tab PO TID 12/30/15 [ History] Thyroid,Pork [Nature-Throid] 65 mg PO DAILY 12/30/15 [History] Finasteride [Proscar] 5 mg PO DAILY 02/26/16 [History] Tamsulosin [Flomax] 0.4 mg PO PCBREAKFAST #30 cap.er 02/29/16 [Rx] Vit B12/Lmefolate Ca/Vit B6/B2 [l-Methyl-Mc Tablet] 1 each PO DAILY 04/25/16 [ History] Vitamin D3/Vitamin K2 [D3 + K2 Dots 1,000 Unit] 1 tab PO DAILY 01/23/17 [History ] Focus 2 cap PO BID 09/21/17 [History] Acetaminophen [Tylenol] 650 mg PO Q4H PRN #100 tablet 09/25/17 [Rx] Losartan/Hydrochlorothiazide [Losartan-HCTZ 50-12.5 MG] 1 each PO DAILY [History] Propylene Glycol/PEG 400/Pf [Systane Ultra 0.4-0.3% Eye Drp] 1 each OP BID 01/08 [History] Doxycycline [Vibramycin] 100 mg PO BID #6 cap 01/10/19 [Rx] predniSONE 40 mg PO WITHBREAKFAST #6 tablet 01/10/19 [Rx] Oxygen Therapy Mode: Nasal Cannula Oxygen Flow Rate (L/min): 2 Referrals: Abhinav Oviedo MD [Primary Care Provider] - - Discharge Summary/Plan Comment DC Time >30 min.: No - Patient Data Vitals - Most Recent: Last Vital Signs Temp 98.0 F 01/10/19 07:00 Pulse 64 01/10/19 09:39 Resp 16 01/10/19 07:00 BP 140/68 01/10/19 09:00 Pulse Ox 94 L 01/10/19 09:39 Weight - Most Recent: 176 lb 5.917 oz I&O - Last 24 hours: Intake & Output 01/09/19 01/10/19 01/10/19 22:59 06:59 14:59 Intake Total 405 740 Balance 405 740 TORIBIO Results - Last 24 hrs: Microbiology 01/08/19 22:40 Aerobic Blood Culture - Preliminary Blood - Venous - Lab Draw NO GROWTH AFTER 1 DAY Anaerobic Blood Culture - Preliminary NO GROWTH AFTER 1 DAY 01/08/19 22:58 Aerobic Blood Culture - Preliminary Blood - Venous NO GROWTH AFTER 1 DAY Anaerobic Blood Culture - Preliminary NO GROWTH AFTER 1 DAY Med Orders - Current: Current Medications Acetaminophen (Tylenol) 650 mg PO Q4H PRN PRN Reason: Pain (Mild 1-3)/fever Albuterol (Proventil Neb Soln) 2.5 mg NEB Q4H PRN PRN Reason: Shortness Of Breath/wheezing Albuterol/Ipratropium (Duoneb 3.0-0.5 Mg/3 Ml) 3 ml NEB QIDRT [facility] Last Admin: 01/10/19 07:15 Dose: 3 ml Artificial Tears (Natural Balance Tears) 0 ml EYEBOTH BID [facility] Last Admin: 01/10/19 09:01 Dose: 1 ea Bisacodyl (Dulcolax) 5 mg PO DAILY PRN PRN Reason: Constipation Carbidopa/Levodopa (Sinemet Cr 50-200 Mg) 1 tab PO BEDTIME [facility] Last Admin: 01/09/19 20:56 Dose: 1 tab Carbidopa/Levodopa (Sinemet 25-100 Mg) 2.5 tab PO TID@0630,1030,1530 [facility] Last Admin: 01/10/19 09:47 Dose: 2.5 tab Cholecalciferol (Vitamin D3) 1,000 units PO DAILY [facility] Last Admin: 01/10/19 09:01 Dose: 1,000 units Docusate Sodium (Colace) 100 mg PO BID PRN PRN Reason: Constipation Enoxaparin Sodium (Lovenox) 40 mg SUBCUT DAILY [facility] Last Admin: 01/10/19 09:01 Dose: 40 mg Finasteride (Proscar) 5 mg PO DAILY [facility] Last Admin: 01/10/19 09:01 Dose: 5 mg Guaifenesin/Dextromethorphan (Robitussin Dm) 10 ml PO Q4H PRN PRN Reason: Cough Hydrochlorothiazide (Hydrochlorothiazide) 12.5 mg PO DAILY [facility] Last Admin: 01/10/19 09:00 Dose: 12.5 mg Doxycycline Hyclate 100 mg/ (Sodium Chloride) 100 mls @ 100 mls/hr IV Q12H [facility] Last Admin: 01/10/19 09:47 Dose: 100 mls/hr Ceftriaxone Sodium 1 gm/ (Sodium Chloride) 50 mls @ 100 mls/hr IV Q24H [facility] Last Admin: 01/09/19 23:17 Dose: 100 mls/hr Losartan Potassium (Cozaar) 50 mg PO DAILY [facility] Last Admin: 01/10/19 09:00 Dose: 50 mg Magnesium Oxide (Magnesium Oxide) 400 mg PO BEDTIME [facility] Last Admin: 01/09/19 20:56 Dose: 400 mg Melatonin (Melatonin) 6 mg PO BEDTIME PRN PRN Reason: Insomnia Ondansetron HCl (Zofran Odt) 4 mg PO Q6H PRN PRN Reason: Nausea able to take PO Ondansetron HCl (Zofran) 4 mg IV Q4H PRN PRN Reason: Nausea/Vomiting Prednisone (Prednisone) 40 mg PO WITHBREAKFAST [facility] Last Admin: 01/10/19 08:58 Dose: 40 mg Sodium Chloride (Saline Flush) 10 ml FLUSH ASDIRECTED PRN PRN Reason: Keep Vein Open Last Admin: 01/08/19 23:05 Dose: 10 ml Tamsulosin HCl (Flomax) 0.4 mg PO PCBREAKFAST [facility] Last Admin: 01/10/19 09:01 Dose: 0.4 mg Thyroid ([place] Thyroid) 60 mg PO DAILY [facility] Last Admin: 01/10/19 08:59 Dose: 60 mg Vitamin B Complex (Vitamin B Complex) 1 each PO DAILY [facility] Last Admin: 01/10/19 09:00 Dose: 1 each Discontinued Medications Albuterol (Proventil Neb Soln) 2.5 mg NEB ONETIME ONE Stop: 01/08/19 22:49 Last Admin: 01/08/19 22:58 Dose: 2.5 mg Albuterol/Ipratropium (Duoneb 3.0-0.5 Mg/3 Ml) 3 ml NEB QID [facility] Carbidopa/Levodopa (Sinemet 25-100 Mg) 2.5 tab PO TID [facility] Last Admin: 01/09/19 01:29 Dose: 2.5 tab Ceftriaxone Sodium 1 gm/ (Sodium Chloride) 50 mls @ 100 mls/hr IV ONETIME ONE Stop: 01/08/19 23:25 Last Admin: 01/08/19 23:05 Dose: 100 mls/hr Doxycycline Hyclate 100 mg/ (Sodium Chloride) 100 mls @ 100 mls/hr IV ONETIME ONE Stop: 01/08/19 23:56 Last Admin: 01/08/19 23:37 Dose: 100 mls/hr Sodium Chloride (Normal Saline) 1,000 mls @ 75 mls/hr IV ASDIRECTED [facility] Last Admin: 01/09/19 01:31 Dose: 75 mls/hr Methylprednisolone Sodium Succinate (Solu-Medrol) 125 mg IVPUSH ONETIME ONE Stop: 01/08/19 22:49 Last Admin: 01/08/19 22:58 Dose: 125 mg Methylprednisolone Sodium Succinate (Solu-Medrol) 62.5 mg IVPUSH Q6H [facility] Last Admin: 01/09/19 05:21 Dose: 62.5 mg Methylprednisolone Sodium Succinate (Solu-Medrol) 62.5 mg IVPUSH Q6H [facility] Non-Formulary Medication (Thyroid,Pork [Nature-Throid]) 65 mg PO DAILY [facility] - Exam General: Reports: Alert, Cooperative, No Acute Distress Lungs: Reports: Clear to Auscultation, Normal Respiratory Effort, Decreased Breath Sounds Cardiovascular: Reports: Regular Rate, Regular Rhythm, No Murmurs GI/Abdominal Exam: Soft, Non-Tender, No Organomegaly, No Distention Extremities: Non-Tender, No Pedal Edema
== END 2019-01-10 11:30 | disposition home or self-care (01) | DRG 203 ==
LOC: JP.ED 22:11 → JP.MS 01-09 00:44
PROVIDERS: ADMIT Hospitalist; ATTEND Hospitalist
DX: J45.901 Unspecified asthma with (acute) exacerbation (principal); Z66 Do not resuscitate; R09.02 Hypoxemia; G20 Parkinson's disease; E03.9 Hypothyroidism, unspecified; I12.9 Hypertensive chronic kidney disease with stage 1 through stage 4 chronic kidney disease, or unspecified chronic kidney disease; R05 Cough; R50.9 Fever, unspecified; R53.1 Weakness; N18.3 Chronic kidney disease, stage 3 (moderate); Z99.81 Dependence on supplemental oxygen; G47.30 Sleep apnea, unspecified; N40.1 Benign prostatic hyperplasia with lower urinary tract symptoms; N39.498 Other specified urinary incontinence; H54.7 Unspecified visual loss; K59.09 Other constipation; M10.9 Gout, unspecified; Z96.659 Presence of unspecified artificial knee joint; Z88.5 Allergy status to narcotic agent; Z88.0 Allergy status to penicillin; Z88.8 Allergy status to other drugs, medicaments and biological substances
CPT/HCPCS: 36415; 71045; 80053; 83605; 85025; 87040 ×2; 94640; 96365; 96367; 96375; 99284; J0696; J2930; J3490; J7030; J7050; 80048; 94762; A9270-GY; J1650; J7620-GY